=== PATIENT | male | born 1950 | race Caucasian/White ===

== ENCOUNTER 2017-03-06 07:50 | Day surgery (SDC) | payer MEDICARE ==
[~2017-03-06 07:50] MED LIST: ALPRAZolam 0.25 MG TAB PO PRN; ALPRAZolam 0.5 MG TAB PO PRN; ASPIRIN 325 MG TAB PO STA; NITROGLYCERIN SL TABS 0.4 MG TAB SUBLINGUAL PRN; SODIUM CHLORIDE 0.9% 1,000 ML in EMPTY BAG 1 BAG IV ONE
[2017-03-06 08:15] LABS: Glucose,Whole Blood 116 mg/dL (75-99)
[2017-03-06] MEDS ORDERED: MIDAZOLAM 2 MG/2 ML VIAL ONE (11:41)
[2017-03-06] MEDS ORDERED: LIDOCAINE 2% INJ 20 MG/ML (20 ML MDV) ONE (11:41)
[2017-03-06 11:57] LABS: Glucose,Whole Blood 106 mg/dL (75-99)
[2017-03-06] MEDS ORDERED: LIDOCAINE 2% INJ 20 MG/ML SQ ONE (15:22)
[2017-03-06] MEDS ORDERED: MIDAZOLAM 2 MG/2 ML VIAL IV ONE ×2 (15:22→15:30)
[2017-03-06] MEDS ORDERED: BIVALIRUDIN BOLUS 250 MG/50 ML IV ONE (15:26)
[2017-03-06] MEDS ORDERED: BIVALIRUDIN 250 MG in SODIUM CHLORIDE 0.9% 50 ML IV ONE (15:28)
[2017-03-06] MEDS ORDERED: HYDROmorphone 2 MG/ML 1 ML SYRINGE IV ONE (15:37)
[2017-03-06] MEDS ORDERED: CLOPIDOGREL 75 MG TAB PO ONE (15:44)
[2017-03-06] MEDS ORDERED: ADENOSINE 90 MG in SODIUM CHLORIDE 0.9% 60 ML IVP ONE (15:55)
[2017-03-06] MEDS ORDERED: IOHEXOL 350 MG/ML 125ML BOTTLE INJ ONE (16:01)
[2017-03-06] MEDS ORDERED: ZOLPIDEM 5 MG TAB PO PRN (16:02)
[2017-03-06] MEDS ORDERED: NITROGLYCERIN SL TABS 0.4 MG TAB SUBLINGUAL PRN (16:02)
[2017-03-06] MEDS ORDERED: MAG HYDROX/AL HYDROX/SIMETH 30 ML CUP PO PRN (16:02)
[2017-03-06] MEDS ORDERED: RX INFO: IV CONTRAST WAS GIVEN 1 EACH MISC MISCELLANE PRN (16:02)
[2017-03-06] MEDS ORDERED: ATROPINE SULFATE 0.1 MG/ML 10ML SYRINGE IV PRN (16:02)
[2017-03-06] MEDS ORDERED: SODIUM CHLORIDE 0.9% 1,000 ML IV SCH (16:15)
[2017-03-06 16:45] LABS: Glucose,Whole Blood 133 mg/dL (75-99)
[2017-03-06] MEDS ORDERED: INFLUENZA VACCINE (6 MOS+) 60 MCG/0.5 ML SYRINGE IM ONE (18:33)
[2017-03-06] MEDS ORDERED: PNEUMOCOCCAL VACC-PNEUMOVAX 23 25 MCG/0.5 ML VIAL IM ONE (18:35)
--- NOTE | 2017-03-06 21:14 | PTCA ---
PERCUTANEOUSTRANS CORORONARY ANGIOGRAPHY DATE OF SERVICE: March 06, 2017 PERFORMING PHYSICIAN: Phoenix Araujo MD, bench press operator. PROCEDURE PERFORMED: 1. Successful stenting of the distal left main/proximal left circumflex using 2.5 x 16 mm Promus Premier drug-eluting stent with good angiographic results. 2. Fractional flow reserve, FFR, of the SVG graft onto diagonal. INDICATION: This is a pleasant 66-year-old gentleman who is known to have coronary artery disease who underwent stenting of the RCA few weeks ago and was found to have severe disease involving an ostial/proximal unprotected left circumflex as well as intermediate disease involving the SVG to the diag was brought today to undergo an intervention on the left circumflex and FFR of the diagonal and RCA of the SVG to diagonal. APPROACH: Right common femoral artery. COMPLICATION: None. LEVEL OF SEDATION: Moderate with sedation length of 38 minutes. . PROCEDURE: After obtaining informed consent, the patient was brought to cardiac senior laboratory technician. The right common femoral artery was cannulated using micropuncture technique: A micropuncture wire passed easily then I placed a 6-Comoran sheath in the right common femoral artery. Subsequently I did engage the left circumflex using JL4 guiding catheter. I did wire the left circumflex using a whisper wire. I did after that balloon angioplasty using 225 x 12 mm balloon then I deployed 2.5 x 16 mm Promus Premier drug-eluting stent where the stent was positioned under fluoroscopy guidance and deployed under 12 atmospheres for 20 seconds with the following angiogram showed good angiographic results. Regarding the FFR of the SVG to diagonal, I had after zeroing the Doppler wire and equalizing between the Doppler wire and the guiding catheter which was JR4 guiding catheter with an FFR per IV adenosine infusion. The FFR came in to be 0.94, which is nonischemic. CONCLUSION: 1. Successful stenting of the distal left main/proximal left circumflex using 2.5 x 16 mm Promus Premier drug-eluting stent with good angiographic results. 2. Fractional flow reserve of the SVG to diagonal, which was nonischemic. POSTPROCEDURE MANAGEMENT: 1. Maximize medical treatment. 2. Follow up with the patient. MMODL / IJN: [id number] /
[2017-03-06 21:16] LABS: Glucose,Whole Blood 369 mg/dL (75-99)
[2017-03-06] MEDS ORDERED: INSULIN LISPRO (humaLOG) 300 UNIT/3 ML VIAL SQ PRN (21:34)
[2017-03-06] MEDS ORDERED: METOPROLOL TARTRATE 50 MG TAB PO SCH (21:45)
[2017-03-06] MEDS: INSULIN GLARGINE 100 UNIT/ML 10 ML VIAL SQ SCH (23:04)
[2017-03-06] MEDS: INSULIN LISPRO (humaLOG) 300 UNIT/3 ML VIAL SQ SCH (23:05)
[2017-03-07 05:48] VITALS: RESP 18
[2017-03-07 06:00] LABS: Glucose,Whole Blood 269 mg/dL (75-99)
[2017-03-07 06:27] LABS: Basophils % (A) 0 %; CH 31.9; Eosinophils # (A) 0.2 k/uL (0-0.7); Eosinophils % (A) 3 %; HCT 44.3 % (39.0-53.0); HDW 2.17; HGB 14.3 gm/dL (13.0-17.5); Luc # (Auto) 0.14; Luc % (Auto) 2; Lymphocytes # (A) 1.1 k/uL (1.0-4.8); Lymphocytes % (A) 19 %; MCH 31.2 pg (25.0-35.0); MCHC 32.2 g/dL (31.0-37.0); MCV 96.8 fL (80.0-100.0); Mean Platelet Volume 7.4; Monocytes # (A) 0.5 k/uL (0-1.0); Monocytes % (A) 7 %; Neutrophils # (A) 4.2 k/uL (1.3-7.7); Neutrophils % (A) 68 %; RBC 4.57 m/uL (4.30-5.90); RDW 13.3 % (11.5-15.5); WBC 6.1 k/uL (3.8-10.6); WBC (Perox) 6.06
[2017-03-07 06:57] LABS: Anion Gap 6 mmol/L; Blood Urea Nitrogen 16 mg/dL (9-20); Calcium 8.4 mg/dL (8.4-10.2); Carbon Dioxide 23 mmol/L (22-30); Chloride 105 mmol/L (98-107); Glucose 287 mg/dL (74-99); Non-African American GFR(MDRD) >60 (>60 ml/min/1.73 sqM); Sodium 134 mmol/L (137-145)
[2017-03-07] MEDS: INSULIN LISPRO (humaLOG) 300 UNIT/3 ML VIAL SQ SCH (07:05)
[2017-03-07] MEDS: INSULIN GLARGINE 100 UNIT/ML 10 ML VIAL SQ SCH (08:33)
[2017-03-07] MEDS ORDERED: CLOPIDOGREL 75 MG TAB PO SCH (09:00)
[2017-03-07] MEDS ORDERED: ASPIRIN 325 MG TAB PO SCH (09:00)
[2017-03-07] MEDS ORDERED: ISOSORBIDE MONONITRATE ER 60 MG TAB.ER.24H PO SCH (09:00)
[2017-03-07 09:22] VITALS: BP 155/72; PULSE 70; TEMP 97.7
[2017-03-07 09:55] VITALS: BMI 26.9
--- NOTE | 2017-03-07 11:34 | P.PN ---
Subjective Progress Note Date: 03/07/17 Principal diagnosis: Discharge note This is a pleasant 66-year-old gentleman with known history of coronary artery disease with recent stenting of the RCA, he was admitted to the hospital to undergo angioplasty of the ostial and proximal unprotected left circumflex. Patient did undergo successful stenting of the distal left main/ proximal left circumflex, he also underwent fractional flow reserve of the SVG to the diagonal which was nonischemic. Patient was seen and examined this morning, denied any chest pain or difficulty in breathing. He's been up ambulating without any difficulty. Hemodynamically stable. CBC normal, potassium 5.0, BUN 16, creatinine 0.1. Objective - Vital Signs Vital signs: Vital Signs Temp 97.7 F 03/07/17 08:00 Pulse 70 03/07/17 08:00 Resp 18 03/07/17 08:00 BP 155/72 03/07/17 08:00 Pulse Ox 92 L 03/07/17 08:00 Intake & Output 03/06/17 03/07/17 03/07/17 18:59 06:59 18:59 Intake Total 511 1200 480 Output Total 400 975 Balance 111 225 480 Weight 97.9 kg 95.2 kg 95.2 kg Intake: IV 511 Intake, IV Titration 1200 Amount Sodium Chloride 0.9% 1, 1200 000 ml @ 100 mls/hr IV . Q10H [facility] Rx#:[id number] Oral 480 Output: Urine 400 975 Other: Voiding Method Urinal # Voids 1 - Exam PHYSICAL EXAMINATION: HEENT: [Head is atraumatic, normocephalic. Pupils equal, round. Neck is supple. There is no elevated jugular venous pressure.] HEART EXAMINATION: [Heart S1, S2 normal. No murmur or gallop heard.] CHEST EXAMINATION:[ Lungs are clear to auscultation and precussion. No chest wall tenderness is noted on palpation or with deep breathing.] ABDOMEN: [ Soft, nontender. Bowel sounds are heard. No organomegaly noted]. Right groin soft, no evidence of any hematoma. EXTREMITIES:[ 2+ peripheral pulses with no evidence of peripheral edema and no calf tenderness noted]. NEUROLOGIC [patient is awake, alert and oriented -3.] . - Labs CBC & Chem 7: 03/07/17 05:37 03/07/17 05:37 Labs: Abnormal Lab Results - Last 24 Hours (Table) 03/06/17 03/06/17 03/06/17 Range/Units 11:45 16:42 21:14 Sodium (137-145) mmol/L Glucose (74-99) mg/dL POC Glucose (mg/dL) 106 H 133 H 369 H (75-99) mg/dL 03/07/17 03/07/17 Range/Units 05:37 05:56 Sodium 134 L (137-145) mmol/L Glucose 287 H (74-99) mg/dL POC Glucose (mg/dL) 269 H (75-99) mg/dL Assessment and Plan Assessment: Assessment and plan #1 status post angioplasty with stenting of the distal left main and proximal circumflex. #2 fractional flow reserve of the SVG to the diagonal which was nonischemic #3 recent RCA stenting #4 hyperlipidemia # 5 diabetes #6 hypertension Plan Patient may be able to be discharged home today. We'll make him a follow-up appointment in the office with Dr. Romero post discharge. He has been educated regarding his medication, diet, activity, and care of groin. DNP note has been reviewed, I agree with a documented findings and plan of care. Patient was seen and examined.
[2017-03-07] MEDS ORDERED: LISINOPRIL 20 MG TAB PO SCH (21:00)
[2017-03-07] MEDS ORDERED: ATORVASTATIN 40 MG TAB PO SCH (21:00)
== END 2017-03-07 09:57 | disposition home or self-care (01) ==
LOC: CATHCVL 07:50 → 6SEL 16:05 → CATHCVL 03-07 09:57
PROVIDERS: ATTEND Internal Medicine Interventional Cardiology
DX: I25.10 Atherosclerotic heart disease of native coronary artery without angina pectoris (principal); R94.31 Abnormal electrocardiogram [ECG] [EKG]; E78.00 Pure hypercholesterolemia, unspecified; I10 Essential (primary) hypertension; R06.00 Dyspnea, unspecified; E11.9 Type 2 diabetes mellitus without complications; Z95.1 Presence of aortocoronary bypass graft; Z95.5 Presence of coronary angioplasty implant and graft; Z82.49 Family history of ischemic heart disease and other diseases of the circulatory system; Z79.02 Long term (current) use of antithrombotics/antiplatelets; Z79.82 Long term (current) use of aspirin; Z79.4 Long term (current) use of insulin; Z79.899 Other long term (current) drug therapy; Z23 Encounter for immunization
CPT/HCPCS: 93571; 80048; 85025; 90732; 90686; C9600; C1769 ×3; C1887 ×2; C1725; C1894; C1874; G0008; G0009; J2001; J2250; J1170; J0583; J0153; Q9967

== ENCOUNTER → 2017-05-16 | Outpatient (CLI) | payer MEDICARE ==
--- NOTE | 2017-05-17 08:51 | CT ---
EXAMINATION TYPE: CT shoulder LT wo con DATE OF EXAM: 05/16/2017 COMPARISON: NONE HISTORY: Slip and fall x3 days ago. Left shoulder pain. CT DLP: 703.[address] of the left shoulder with reconstruction imaging. TECHNIQUE: Unenhanced CT of the left shoulder was performed with bone and soft tissue window settings submitted in the axial coronal and sagittal planes. At a separate workstation 3-D TR imaging was ob tained. FINDINGS: Fracture noted to involve the left humeral neck with comminuted component extending into th e greater tuberosity and lesser tuberosity. 4 mm fracture displacement at the greater tuberosity comp onent. There is no evidence for dislocation. Small hemarthrosis is noted. No additional fracture seen . MRI is much more sensitive and specific to rotator cuff pathology. No soft tissue masses appreciat ed. Visualized portions of the lung demonstrate apical scarring. Large fixed hiatal hernia noted. IMPRESSION: 1. Comminuted proximal left humeral fracture.
== END | disposition home or self-care (01) ==
LOC: RADCTMAIN 19:27
PROVIDERS: ATTEND Orthopaedic Surgery
DX: S42.202A Unspecified fracture of upper end of left humerus, initial encounter for closed fracture (principal)

== ENCOUNTER 2017-06-02 09:21 | Emergency (ER) | payer MEDICARE ==
--- NOTE | 2017-06-02 10:07 | ED ---
General Adult HPI - General Chief complaint: Extremity Injury, Lower Stated complaint: Swollen feet Time Seen by Provider: 06/02/17 09:58 Source: patient, RN notes reviewed Mode of arrival: ambulatory Limitations: no limitations - History of Present Illness Initial comments: Patient is a 66-year-old male who presents emergency room today with a chief complaint of swelling to his feet bilaterally. He does admit to use fracture that occurred earlier in the month after a trip and fall. States she's been following up with orthopedics. He states that his noticed this past week she's had some swelling down into his left foot also some mild swelling to the right foot as well. He states that he was told by the family doctor in the past that he had a loose had some slight swelling to the ankle. States he was concerned because of his history of hypertension and diabetes. He does have small abrasion over top left foot that occurred with this fall he broke his humerus. He states it's healing well ears no changes. He denies any pain. He denies any shortness breath or difficulty breathing. Denies any other complaints or symptoms. Patient denies any fever, chills, chest pain, back pain, numbness or tingling. - Related Data Home Medications Medication Instructions Recorded Confirmed Aspirin 325 mg PO DAILY 02/08/17 03/06/17 Atorvastatin [Lipitor] 40 mg PO HS 02/08/17 03/06/17 Enalapril [Vasotec] 10 mg PO HS 02/08/17 03/06/17 Insulin Aspart [NovoLOG Flexpen] See Protocol SQ AC-LUNCH PRN 02/08/17 03/06/17 Insulin Glargine [Lantus] 25 unit SQ BID 02/08/17 03/06/17 Isosorbide Mononitrate ER [Imdur] 60 mg PO QAM 02/08/17 03/06/17 Metoprolol Tartrate [Lopressor] 50 mg PO HS 02/08/17 03/06/17 Insulin Aspart [NovoLOG 15 unit SQ BID-W/MEALS 03/01/17 03/06/17 (formulary)] Previous Rx's Medication Instructions Recorded Clopidogrel [Plavix] 75 mg PO DAILY #90 tab 02/10/17 Nitroglycerin Sl Tabs [Nitrostat] 0.4 mg SUBLINGUAL Q5M PRN #25 tab 03/07/17 Allergies Allergy/AdvReac Type Severity Reaction Status Date / Time No Known Allergies Allergy Verified 06/02/17 09:33 Review of Systems ROS Statement: Those systems with pertinent positive or pertinent negative responses have been documented in the HPI. ROS Other: All systems not noted in ROS Statement are negative. Past Medical History Past Medical History: Coronary Artery Disease (CAD), Diabetes Mellitus, Hyperlipidemia, Hypertension History of Any Multi-Drug Resistant Organisms: None Reported Past Surgical History: Coronary Bypass/CABG, Heart Catheterization, Heart Catheterization With Stent Additional Past Surgical History / Comment(s): cabg x4 Past Anesthesia/Blood Transfusion Reactions: No Reported Reaction Date of Last Stent Placement:: 03/06/17 Past Psychological History: No Psychological Hx Reported Smoking Status: Never smoker Past Alcohol Use History: Rare Past Drug Use History: None Reported - Past Family History Mother Family Medical History: No Reported History General Exam - General Exam Comments Initial Comments: General: The patient is awake and alert, in no distress, and does not appear acutely ill. Neck: The neck is supple, there is no tenderness or JVD. Cardiovascular: There is a regular rate and rhythm. No murmur, rub or gallop is appreciated. Respiratory: Lungs are clear to auscultation, respirations are non-labored, breath sounds are equal. No wheezes, stridor, rales, or rhonchi. Musculoskeletal: Patient in a shoulder sling on the left arm. Pulses equal bilaterally both upper and lower extremities. Sensations are intact. Mild pitting down into the left foot. Neurological: A&O x 3. CN II-XII intact, There are no obvious motor or sensory deficits. Coordination appears grossly intact. Speech is normal. Skin: Patient does have small abrasion over the top left foot. No sign of infection. No lymphangitic streaking. Psychiatric: Normal mood and affect. Limitations: no limitations Course Vital Signs 06/02/17 06/02/17 09:29 10:17 Temperature 97.9 F Pulse Rate 68 80 Respiratory 16 18 Rate Blood Pressure 188/86 143/76 O2 Sat by Pulse 97 98 Oximetry Medical Decision Making - Medical Decision Making Patient's labs been reviewed. Patient presenting for bilateral lower leg edema. Patient swelling to the lower extremity's. patient at this time advised to elevate his feet above the heart. advised follow family doctor over the next 2 days. advised to return here to the emergency room for any symptoms increase worsen or for any other concerns. - Lab Data Result diagrams: 06/02/17 10:13 06/02/17 10:13 Lab Results 06/02/17 06/02/17 06/02/17 Range/Units 10:13 10:13 10:13 WBC 5.1 (3.8-10.6) k/uL RBC 4.28 L (4.30-5.90) m/uL Hgb 13.8 (13.0-17.5) gm/dL Hct 42.4 (39.0-53.0) % MCV 99.0 (80.0-100.0) fL MCH 32.3 (25.0-35.0) pg MCHC 32.6 (31.0-37.0) g/dL RDW 14.4 (11.5-15.5) % Plt Count 242 (150-450) k/uL Neutrophils % 59 % Lymphocytes % 26 % Monocytes % 7 % Eosinophils % 5 % Basophils % 0 % Neutrophils # 3.0 (1.3-7.7) k/uL Lymphocytes # 1.3 (1.0-4.8) k/uL Monocytes # 0.3 (0-1.0) k/uL Eosinophils # 0.3 (0-0.7) k/uL Basophils # 0.0 (0-0.2) k/uL Sodium 142 (137-145) mmol/L Potassium 4.1 (3.5-5.1) mmol/L Chloride 105 (98-107) mmol/L Carbon Dioxide 27 (22-30) mmol/L Anion Gap 10 mmol/L BUN 18 (9-20) mg/dL Creatinine 0.70 (0.66-1.25) mg/dL Est GFR (MDRD) Af Amer >60 (>60 ml/min/1.73 sqM) Est GFR (MDRD) Non-Af >60 (>60 ml/min/1.73 sqM) Glucose 59 L (74-99) mg/dL Calcium 9.3 (8.4-10.2) mg/dL NT-Pro-B Natriuret Pep 218 pg/mL Disposition Clinical Impression: Leg edema Disposition: HOME SELF-CARE Condition: Good Instructions: Leg Edema (ED) Additional Instructions: Please elevate legs as discussed. Please follow up with the family doctor this coming week. Please return to emergency room if any symptoms increase worsen. Referrals: Eva Awan MD [Primary Care Provider] - 1-2 days Time of Disposition: 11:00
[2017-06-02 10:18] VITALS: RESP 18
[2017-06-02 10:20] LABS: Basophils % (A) 0 %; Eosinophils # (A) 0.3 k/uL (0-0.7); Eosinophils % (A) 5 %; HCT 42.4 % (39.0-53.0); HGB 13.8 gm/dL (13.0-17.5); Lymphocytes # (A) 1.3 k/uL (1.0-4.8); Lymphocytes % (A) 26 %; MCH 32.3 pg (25.0-35.0); MCHC 32.6 g/dL (31.0-37.0); Mean Platelet Volume 7.2; Monocytes # (A) 0.3 k/uL (0-1.0); Monocytes % (A) 7 %; Neutrophils % (A) 59 %; Platelet Count 242 k/uL (150-450); RBC 4.28 m/uL (4.30-5.90); RDW 14.4 % (11.5-15.5); WBC 5.1 k/uL (3.8-10.6)
[2017-06-02 10:30] LABS: Anion Gap 10 mmol/L; Blood Urea Nitrogen 18 mg/dL (9-20); Calcium 9.3 mg/dL (8.4-10.2); Carbon Dioxide 27 mmol/L (22-30); Chloride 105 mmol/L (98-107); Glucose 59 mg/dL (74-99); Potassium 4.1 mmol/L (3.5-5.1); Sodium 142 mmol/L (137-145)
[2017-06-02 11:06] VITALS: BP 153/73; PULSE 72; TEMP 98.1
== END 2017-06-02 11:04 | disposition home or self-care (01) ==
LOC: EC 09:21
DX: R60.0 Localized edema (principal); S90.812D Abrasion, left foot, subsequent encounter; E11.9 Type 2 diabetes mellitus without complications; E78.5 Hyperlipidemia, unspecified; I10 Essential (primary) hypertension; I25.10 Atherosclerotic heart disease of native coronary artery without angina pectoris; Z95.1 Presence of aortocoronary bypass graft; Z95.5 Presence of coronary angioplasty implant and graft; Z79.82 Long term (current) use of aspirin; Z79.4 Long term (current) use of insulin; Z79.899 Other long term (current) drug therapy; W19.XXXD Unspecified fall, subsequent encounter
CPT/HCPCS: 36415; 80048; 83880; 85025; 99283

== ENCOUNTER → 2018-01-18 | Outpatient (CLI) | payer MEDICARE ==
--- NOTE | 2018-01-18 12:34 | MR ---
EXAMINATION TYPE: MR shoulder LT wo con DATE OF EXAM: 01/18/2018 COMPARISON: Outside x-ray dated 01/08/2018, CT scan 05/16/2017 HISTORY: Left shoulder pain TECHNIQUE: Multiplanar, multisequence imaging of the left shoulder is performed without contrast. FINDINGS: Rotator Cuff: There is a near complete tear of the supraspinatus tendon with minimal fibers remaining . Infraspinatus tendon demonstrates a area of abnormal signal measuring 5 mm at its insertion likely related to tendinopathy or tiny intrasubstance tear. No retraction. Subscapularis tendon intact. Flui d in the subacromial bursa noted. Acromioclavicular Joint: There is hypertrophic change and narrowing of the AC joint. Does appear to b e a degree of atrophy with regard to the supraspinatus muscle. Glenohumeral Joint: No sizable joint effusion. There appears to be a benign-appearing cystic lesion i nvolving the acetabulum. Narrowing of the joint space is noted and there is a chronic appearing defor mity of the humeral head compatible with previous fracture. Labrum: Findings are suspicious for a SLAP tear. Biceps Tendon: The long head of biceps is in normal location within bicipital groove. Small amount of fluid surrounding the biceps tendon suggestive of tendinosis Bone marrow signal: Cystic appearing lesion in the acetabulum noted measuring 1 cm also seen by previ ous CT scan may represent bone cyst or geode. IMPRESSION: 1. Near complete tear of the supraspinatus tendon with minimal fibers remaining. There is a degree of atrophy of the supraspinatus muscle. 2. Tendinopathy insertion of the infraspinatus tendon. 3. SLAP tear. 4. mild bicipital tendinosis. 5. Findings compatible with remote trauma to the humeral head and previous fracture.
== END | disposition home or self-care (01) ==
LOC: RADMRIMAIN 10:13
PROVIDERS: ATTEND Orthopaedic Surgery
DX: M75.122 Complete rotator cuff tear or rupture of left shoulder, not specified as traumatic (principal); M62.512 Muscle wasting and atrophy, not elsewhere classified, left shoulder; S43.492A Other sprain of left shoulder joint, initial encounter; M67.814 Other specified disorders of tendon, left shoulder

== ENCOUNTER 2018-02-28 05:35 | Day surgery (SDC) | payer MEDICARE ==
[2018-02-26 08:57] VITALS: BMI 27.8
--- NOTE | 2018-02-27 16:11 | HP ---
HISTORY AND PHYSICAL REASON FOR ADMISSION: Surgery 02/28/2018 Blaine Nelson is a 67-year-old patient seen with progressive left shoulder pain. We discussed treatment options. He elected to proceed with left shoulder arthroscopy. Consent regarding the procedure was obtained, clearance was provided by Dr. Awan. Cardiac clearance by Dr. Araujo. PAST MEDICAL HISTORY: Hyperlipidemia, hypertension, insulin-dependent diabetes. PAST SURGICAL HISTORY: Coronary artery bypass surgery, catheterization with stent placement. MEDICATIONS: Atorvastatin, Enalapril, isosorbide, Lantus, metoprolol, NovoLog. ALLERGIES: None. SOCIAL HISTORY: Patient denies current tobacco use. PHYSICAL EXAMINATION: Evaluation of the left shoulder: Flexion is 130 degrees, abduction is 100 degrees, external rotation is 10 degrees with pain and weakness. Tenderness along the anterolateral acromion rotator cuff insertion site. Impingement positive at 80 degrees. Positive drop-arm sign. Distal neurovascular exam intact. RADIOGRAPHS: Left shoulder revealed a previous humeral head fracture. MRI of left shoulder revealed rotator cuff tear with some muscular atrophy, biceps tendinitis and labral tear. IMPRESSION: Left shoulder impingement with rotator cuff tear and labral tear. PLAN: Left shoulder arthroscopy with subacromial decompression, possible arthroscopic rotator cuff repair, probable biceps tenotomy and debridement. Surgery is scheduled for 02/28/2018. MMODL / IJN: [id number] /
[~2018-02-28 05:35] MED LIST changes: -ALPRAZolam 0.25 MG TAB PO PRN; -ALPRAZolam 0.5 MG TAB PO PRN; -ASPIRIN 325 MG TAB PO STA; +DEXAMETHASONE SOD PHOSPHATE 10 MG/ML 1 ML VIAL IV ONE; +LACTATED RINGERS 1,000 ML IV SCH; +LIDOCAINE 1% 20 ML VIAL (10MG/ML) FOR IV START INTRADERMA PRN; +MIDAZOLAM 2 MG/2 ML VIAL IV PRN; -NITROGLYCERIN SL TABS 0.4 MG TAB SUBLINGUAL PRN; +ONDANSETRON 4 MG/2 ML VIAL IVP ONE; -SODIUM CHLORIDE 0.9% 1,000 ML in EMPTY BAG 1 BAG IV ONE; +ceFAZolin IN SWFI 2 GM/20 ML SYRINGE IVP ONE; +fentaNYL (PF) 50 MCG/ML 2 ML AMP IV PRN
[2018-02-28 06:47] LABS: Glucose,Whole Blood 206 mg/dL (75-99)
[2018-02-28] MEDS ORDERED: INSULIN ASPART 100 UNIT/ML 1 ML 10 ML VIAL SQ ONE (07:20)
[2018-02-28] MEDS ORDERED: fentaNYL (PF) 50 MCG/ML 2 ML AMP ONE (07:28)
[2018-02-28] MEDS ORDERED: LIDOCAINE 1% INJ 10MG/ML (20 ML MDV) ONE (07:28)
[2018-02-28] MEDS ORDERED: KETOROLAC 30 MG/ML 1 ML VIAL ONE (07:28)
[2018-02-28] MEDS ORDERED: SUCCINYLCHOLINE CHLORIDE VIAL 200 MG/10 ML VIAL IV ONE (07:28)
[2018-02-28] MEDS ORDERED: MIDAZOLAM 2 MG/2 ML VIAL ONE (07:28)
[2018-02-28] MEDS ORDERED: PROPOFOL 10 MG/ML 20 ML VIAL IV ONE (07:28)
[2018-02-28] MEDS ORDERED: ROPIVACAINE 5 MG/ML 30 ML VIAL ONE (07:28)
--- NOTE | 2018-02-28 08:22 | P.ONQ ---
Anesthesiology Proc Note - PNB - Peripheral Nerve Block Performed Left Interscalene Single Time Out Performed: Yes Procedure Start Time: 06:55 Indication: Acute Post-Operative Pain, Analgesia Specifically requested for management of pain by DrSy: Christiano Hodges Sedation Type: Sedate with meaningful contact maintained Preparation: Sterile Prep Position: Supine Catheter: None Needle Types: Other (see comment) (Pajunk) Needle Size: 50mm (2") Needle Gauge: 21 Technique: Ultrasound Injectate: 0.5% Ropivacaine (see comment for volume) (30 cc) Blood Aspirated: No Pain Paresthesia on Injection Noted: No Resistance on Injection: Normal Events: Uneventful and Well Tolerated
--- NOTE | 2018-02-28 09:43 | P.OP ---
Date of Procedure: 02/28/18 Preoperative Diagnosis: Left shoulder impingement Postoperative Diagnosis: 1. Left shoulder rotator cuff tear 2. Left shoulder impingement 3. Left shoulder acromioclavicular joint osteoarthritis 4. Left shoulder partial long head biceps tendon tear 5. Left shoulder labral tear Procedure(s) Performed: 1. Left shoulder arthroscopic rotator cuff repair 2. Left shoulder arthroscopic subacromial decompression 3. Left shoulder arthroscopic Constantin procedure 4. Left shoulder arthroscopic biceps tenotomy 5. Left shoulder arthroscopic debridement labral tear Implants: 34 .75 Arthrex swivel lock anchors 15.5 Arthrex swivel lock anchor Anesthesia: GETA, regional (Interscalene block) Surgeon: Christiano Hodges Database Management Specialist #1: Gigi Barker Estimated Blood Loss (ml): 10 Pathology: none sent Condition: stable Disposition: PACU Indications for Procedure: 67-year-old patient seen with progressive left shoulder pain. After treatment options were discussed, he elected to proceed with arthroscopy. Operative Findings: See description of procedure Description of Procedure: Patient underwent an interscalene block by department of anesthesia. The patient was then taken to the operative suite. The patient underwent a general anesthetic by the department of anesthesia. The patient was placed into a lateral position and secured. There was appropriate padding of the bony prominence. Left shoulder was then prepped and draped in normal sterile orthopedic fashion. We placed the extremity in 10 pounds of longitudinal traction. A posterior incision was now made for a posterior working portal site. The trocar and cannula were inserted into the glenohumeral joint. Arthroscopy was initiated. Spinal needle was now inserted anteriorly, to ascertain the anterior working portal site. An incision was now made in that area, a trocar was inserted followed by a probe. There was superficial tearing of the superior labrum. There was rotator cuff tear visualized from glenohumeral side. There was hyperemia and partial tearing long head biceps tendon. There were grade 1 chondromalacia changes of the glenohumeral joint with no osteochondral tears present. I performed an arthroscopic biceps tenotomy. I debrided the superficial labral tear down to stable tissue. The residual labrum was stable. Utilizing the posterior working portal site, the trocar and cannula were inserted into the subacromial space. Arthroscopy initiated. I made an incision 2 fingerbreadths lateral to the acromion. I introduced my trocar followed by my ArthroCare ablator. I now began ablating thick subacromial bursal tissue, which exposed the undersurface of the anterior acromion. There was diminished subacromial space. There was a very prominent anterior acromion. A motorized bur was introduced and a subacromial decompression was performed. I also excised some osteophytes off the inferior aspect of the distal clavicle. The AC joint was visualized and noted to be fairly arthritic. The motorized bur was introduced in the anterior portal site and a Constantin procedure was performed without difficulty, decompressing the AC joint nicely. I turned my attention to the rotator cuff. There was a 2 cm rotator cuff tear. I debrided the margins getting down to stable tendon tissue. The defect of the tendon now measured 2.5 cm. It was freely mobile over the footprint. I introduced my motorized bur and abraded the footprint area, getting some petechial bleeding. I now made an accessory portal site off the lateral aspect of the acromion. I punched 2 holes medial for medial row fixation with the assistance of Bo FARRELL carefully tapping the punch with a mallet as I held the punch and the camera. I now introduced both anchors into the pre-punched holes and Bo FARRELL tapped them with the mallet as I held anchors and the camera. Bo FARRELL now screwed the anchors in place a while I held the anchor guide and camera. All 8 limbs of suture were now passed through good bites of rotator cuff tendon. I now punched 2 holes for lateral row fixation again I held the punch and camera while Bo FARRELL used a mallet to tap in the punch. We now passed sutures through both anchors and individually I introduced the anchors into the pre-punch holes I held the anchor guide in position with one hand holding the camera with the other hand while Bo FARRELL tensioned the sutures and screwed in the anchors one at a time. All residual suture limbs were now clipped. We had good compression of the tendon along the entire footprint. I injected 1 mL Renue intra-articular. Instruments now removed from the portal sites. All portal sites were approximated with nylon suture. Sterile dressings were applied followed by a shoulder immobilizer. Gigi FARRELL assisted in this complex case. The patient was awakened, transferred to a bed, and taken to recovery in stable condition.
[2018-02-28 09:46] VITALS: TEMP 97.6
[2018-02-28 09:50] VITALS: RESP 16
[2018-02-28 09:54] LABS: Glucose,Whole Blood 192 mg/dL (75-99)
[2018-02-28] MEDS ORDERED: LACTATED RINGERS 1,000 ML IV ONE (10:05)
[2018-02-28 11:07] VITALS: BP 122/62; PULSE 60
== END 2018-02-28 11:48 | disposition home or self-care (01) ==
LOC: OR 05:35
PROVIDERS: ATTEND Orthopaedic Surgery
DX: M75.102 Unspecified rotator cuff tear or rupture of left shoulder, not specified as traumatic (principal); M75.42 Impingement syndrome of left shoulder; M19.012 Primary osteoarthritis, left shoulder; S46.112A Strain of muscle, fascia and tendon of long head of biceps, left arm, initial encounter; S43.492A Other sprain of left shoulder joint, initial encounter; X58.XXXA Exposure to other specified factors, initial encounter; M94.212 Chondromalacia, left shoulder; M25.712 Osteophyte, left shoulder; I25.10 Atherosclerotic heart disease of native coronary artery without angina pectoris; I10 Essential (primary) hypertension; E78.5 Hyperlipidemia, unspecified; E78.00 Pure hypercholesterolemia, unspecified; E11.9 Type 2 diabetes mellitus without complications; Z95.1 Presence of aortocoronary bypass graft; Z95.5 Presence of coronary angioplasty implant and graft; Z79.82 Long term (current) use of aspirin; Z79.4 Long term (current) use of insulin; Z79.899 Other long term (current) drug therapy; Z82.49 Family history of ischemic heart disease and other diseases of the circulatory system
CPT/HCPCS: 64415; 29824; 29827; 29826; C1713 ×4; C1765; J2250; J0330; J1100; J2405; J2001; J3010; J1885; J2795; J2704; J0690

== ENCOUNTER → 2018-11-06 | Outpatient (CLI) | payer MEDICARE | END | disposition home or self-care (01) | LOC: LABPAT 09:34 | PROVIDERS: ATTEND Internal Medicine Interventional Cardiology | DX: Z53.9 Procedure and treatment not carried out, unspecified reason (principal) ==

== ENCOUNTER 2018-11-15 07:27 | Day surgery (SDC) | payer MEDICARE ==
[2018-11-13 09:46] VITALS: BMI 28.0
[~2018-11-15 07:27] MED LIST changes: +ALPRAZolam 0.25 MG TAB PO PRN; +ALPRAZolam 0.5 MG TAB PO PRN; +ASPIRIN 325 MG TAB PO STA; +ATORVASTATIN 80 MG TAB PO STA; -DEXAMETHASONE SOD PHOSPHATE 10 MG/ML 1 ML VIAL IV ONE; -LACTATED RINGERS 1,000 ML IV SCH; -LIDOCAINE 1% 20 ML VIAL (10MG/ML) FOR IV START INTRADERMA PRN; -MIDAZOLAM 2 MG/2 ML VIAL IV PRN; +NITROGLYCERIN SL TABS 0.4 MG TAB SUBLINGUAL PRN; -ONDANSETRON 4 MG/2 ML VIAL IVP ONE; +SODIUM CHLORIDE 0.9% 1,000 ML in EMPTY BAG 1 BAG IV ONE; -ceFAZolin IN SWFI 2 GM/20 ML SYRINGE IVP ONE; -fentaNYL (PF) 50 MCG/ML 2 ML AMP IV PRN
[2018-11-15 07:54] LABS: Glucose,Whole Blood 186 mg/dL (75-99)
[2018-11-15] MEDS ORDERED: LIDOCAINE 1% INJ 10MG/ML (20 ML MDV) ONE (08:37)
[2018-11-15] MEDS ORDERED: MIDAZOLAM (PF) 2 MG/2 ML VIAL IVP ONE ×2 (08:45→08:55)
[2018-11-15] MEDS ORDERED: LIDOCAINE 1% INJ 10MG/ML (20 ML MDV) SQ ONE (08:48)
[2018-11-15] MEDS ORDERED: CLOPIDOGREL 75 MG TAB ONE (09:02)
[2018-11-15] MEDS ORDERED: CLOPIDOGREL 75 MG TAB PO ONE (09:06)
[2018-11-15] MEDS ORDERED: BIVALIRUDIN BOLUS 250 MG/50 ML IV ONE (09:06)
[2018-11-15] MEDS ORDERED: BIVALIRUDIN 250 MG in SODIUM CHLORIDE 0.9% 50 ML IV ONE (09:08)
[2018-11-15] MEDS ORDERED: HYDROmorphone 1 MG/ML 1 ML SYRINGE ONE (09:19)
[2018-11-15] MEDS ORDERED: HYDROmorphone 1 MG/ML 1 ML SYRINGE IVP ONE (09:21)
[2018-11-15] MEDS ORDERED: NITROGLYCERIN 1000MCG/10ML SYRINGE INTRACORON ONE (09:31)
[2018-11-15] MEDS ORDERED: SODIUM CHLORIDE 0.9% 1,000 ML IV SCH (09:45)
[2018-11-15] MEDS ORDERED: ATROPINE SULFATE 0.1 MG/ML 10ML SYRINGE IV PRN (09:45)
[2018-11-15] MEDS ORDERED: RX INFO: IV CONTRAST WAS GIVEN 1 EACH MISC MISCELLANE PRN (09:45)
[2018-11-15] MEDS ORDERED: MAG HYDROX/AL HYDROX/SIMETH 30 ML CUP PO PRN (09:45)
[2018-11-15] MEDS ORDERED: ZOLPIDEM 5 MG TAB PO PRN (09:45)
--- NOTE | 2018-11-15 11:59 | CC ---
CARDIAC CATHETERIZATION REPORT DATE OF SERVICE: 11/15/2016 PERFORMING PHYSICIAN: Phoenix Araujo MD, Revenue Officer. PROCEDURE PERFORMED: 1. Selective left and right coronary angiogram. 2. Left internal mammary artery angiogram. 3. SVG to diagonal, ramus intermedius, and left circumflex angiogram. 4. Left heart catheterization. 5. Successful stenting of the ostial and proximal left circumflex using 2.75 x 18 mm Xience EMANI with an excellent angiographic results and reduction of stenosis from 90% to 0%. INDICATION: This is a pleasant 68-year-old gentleman with history of coronary artery disease with the last heart catheterization was performed about 2 years ago, revealed severe triple- vessel coronary artery disease with patent SANCHEZ to LAD, and intermediate to severe disease involving the SVG to diagonal, occluded SVG to ramus intermedius and occluded SVG to the left circumflex. At that point, the patient underwent successful stenting of the [place] circumflex as well as successful stenting of the right coronary artery. The SVG to diagonal at that point was treated medically after an FFR was performed and came into be nonischemic. Recently, he was experiencing symptoms of chest pain and shortness of breath. He underwent a myocardial perfusion imaging stress test and that revealed an anterior and inferior ischemia. Because of that, heart catheterization was advised. APPROACH: Right common femoral artery. COMPLICATION: None. LEVEL OF SEDATION: Moderate with sedation length of 53 minutes. PROCEDURE DESCRIPTION: After obtaining an informed consent, the patient was brought to the cardiac collaborative teacher. The right common femoral artery was cannulated using micropuncture technique, the micropuncture wire passed easily, then I placed a 6-Faroese sheath in the right common femoral artery. After that, I did selective left and right coronary angiogram using JL4 and JR4 catheters. I did SANCHEZ to LAD angiogram using the JR4 catheter. SVG to left circumflex, ramus intermedius, and diagonal angiogram performed using the JR4 catheter as well. Left heart catheterization was performed using 6-Faroese pigtail catheter. After that, I did intervene on the left circumflex. Please see a separate paragraph for that. SELECTIVE CORONARY ANGIOGRAM: 1. LEFT MAIN: The left main appeared to have mild disease only. It bifurcates into left circumflex, ramus intermedius, and left anterior descending artery. 2. The left circumflex is a medium to large caliber vessel with a stent in the ostium with severe in-stent restenosis. 3. The ramus intermedius is a medium caliber vessel with severe ostial disease. 4. The LAD is occluded in the proximal portion. 5. The right coronary artery is a large caliber vessel. The RCA is stented in the midportion and the stent is patent. There is no other disease was identified in the right coronary artery. The RCA distally bifurcates into PDA and PLV branches both appeared to be angiographically normal. CORONARY BYPASSES ANGIOGRAM: 1. SANCHEZ to LAD is patent. 2. SVG to ramus intermedius is occluded. 3. SVG to the left circumflex is occluded. 4. The SVG to diagonal has intermediate to severe lesion in the proximal portion, appeared to be in the range of 60% to 70%.. Increase likely worse compared to before. HEMODYNAMICS: The left ventricular end-diastolic pressure was about 12 mmHg without significant gradient across the aortic valve. PCI OF THE LEFT CIRCUMFLEX: Anticoagulation was initiated using Angiomax. Subsequently, I did engage the left main using a JL short tip guide. I wired the left circumflex using a run-through wire. I did balloon angioplasty using 2.5 x 12 mm balloon. Subsequently, there was intermedius coronary artery. I did wire the ramus intermedius using a whisper wire. I did balloon angioplasty of the ramus intermedius coronary artery using 2.5 x 12 mm balloon. After that, I pulled the wire from the ramus and redirected the wire toward the left circumflex. After that, I deployed in the left circumflex a 2.5 x 18 mm Xience EMANI. Stent was positioned under fluoroscopic guidance and deployed under its nominal pressure. The following angiogram showed good result with good flow in both circumflex as well as the ramus intermedius. The procedure was completed without any complications. CONCLUSION: 1. Chest discomfort and shortness of breath associated with abnormal myocardial perfusion imaging showing an anterior and inferior ischemia. 2. Severe triple-vessel coronary artery disease. 3. The SANCHEZ to LAD is patent. 4. Occluded SVG to ramus intermedius. 5. Occluded SVG to left circumflex. 6. Intermediate to severe disease involving the SVG to diagonal. 7. Patent stent in the right coronary artery. 8. Successful stenting of the proximal left circumflex using 2.75 x 18 mm Xience EMANI with an excellent angiographic results and reduction of stenosis from 90% to 0%. 9. Successful balloon angioplasty of the ramus intermedius with reduction of stenosis from 90% to 0%. POSTPROCEDURE MANAGEMENT: 1. Dual anti-platelet therapy. 2. Aggressive cholesterol control. 3. Follow up with the patient. 4. Medical treatment for the SVG to diagonal at this point with possible PCI down the line. MMODL / IJN: [id number] /
[2018-11-15 12:59] LABS: Glucose,Whole Blood 235 mg/dL (75-99)
[2018-11-15] MEDS: INSULIN ASPART (NovoLOG) 100 UNIT/ML VIAL SQ SCH ×2 (13:22→17:13)
[2018-11-15 16:55] LABS: Glucose,Whole Blood 262 mg/dL (75-99)
[2018-11-15] MEDS ORDERED: INSULIN ASPART (NovoLOG) 100 UNIT/ML VIAL SQ SCH (17:30)
[2018-11-15 20:39] LABS: Glucose,Whole Blood 184 mg/dL (75-99)
[2018-11-15] MEDS: INSULIN DETEMIR (LEVEMIR) 100 UNIT/ML SYR SQ SCH (20:46)
[2018-11-15] MEDS ORDERED: LISINOPRIL 20 MG TAB PO SCH (21:00)
[2018-11-15] MEDS ORDERED: ATORVASTATIN 40 MG TAB PO SCH (21:00)
[2018-11-15] MEDS ORDERED: ASPIRIN 325 MG TAB PO SCH (21:00)
[2018-11-15] MEDS ORDERED: METOPROLOL TARTRATE 50 MG TAB PO SCH (21:00)
[2018-11-16 02:53] LABS: Glucose,Whole Blood 58 mg/dL (75-99)
[2018-11-16 03:19] LABS: Glucose,Whole Blood 86 mg/dL (75-99)
[2018-11-16 04:36] VITALS: RESP 16
[2018-11-16] MEDS: INSULIN ASPART (NovoLOG) 100 UNIT/ML VIAL SQ SCH ×2 (05:22→07:00)
[2018-11-16 06:08] LABS: Glucose,Whole Blood 261 mg/dL (75-99)
[2018-11-16 06:39] LABS: Basophils % (A) 0 %; Eosinophils # (A) 0.3 k/uL (0-0.7); Eosinophils % (A) 4 %; HCT 45.4 % (39.0-53.0); HGB 13.8 gm/dL (13.0-17.5); Lymphocytes # (A) 1.3 k/uL (1.0-4.8); Lymphocytes % (A) 20 %; MCH 29.4 pg (25.0-35.0); MCHC 30.4 g/dL (31.0-37.0); MCV 96.6 fL (80.0-100.0); Mean Platelet Volume 6.9; Monocytes # (A) 0.4 k/uL (0-1.0); Monocytes % (A) 6 %; Neutrophils # (A) 4.4 k/uL (1.3-7.7); Neutrophils % (A) 67 %; Platelet Count 153 k/uL (150-450); RDW 12.6 % (11.5-15.5); WBC 6.6 k/uL (3.8-10.6)
[2018-11-16 07:28] LABS: African American GFR (CKD) >90 (>60 ml/min/1.73 sqM); Anion Gap 6 mmol/L; Blood Urea Nitrogen 17 mg/dL (9-20); Calcium 8.6 mg/dL (8.4-10.2); Carbon Dioxide 27 mmol/L (22-30); Chloride 105 mmol/L (98-107); Glucose 251 mg/dL (74-99); Potassium 5.1 mmol/L (3.5-5.1); Sodium 138 mmol/L (137-145)
[2018-11-16] MEDS ORDERED: CLOPIDOGREL 75 MG TAB PO SCH (09:00)
[2018-11-16] MEDS ORDERED: ISOSORBIDE MONONITRATE ER 60 MG TAB.ER.24H PO SCH (09:00)
[2018-11-16] MEDS: INSULIN DETEMIR (LEVEMIR) 100 UNIT/ML SYR SQ SCH (09:40)
[2018-11-16 09:50] VITALS: BP 133/71; PULSE 62; TEMP 97.5
--- NOTE | 2018-11-16 13:15 | DS ---
DISCHARGE SUMMARY ADMISSION DATE: November 15, 2018. DISCHARGE DATE: November 16, 2018 BRIEF HISTORY: This is a 68-year-old gentleman who was admitted to the hospital yesterday and underwent a heart catheterization and was found to have severe disease involving the left circumflex coronary artery. He underwent successful stenting of the left circumflex with good angiographic results and without any complication. He is going to be discharged on dual anti-platelet therapy as well as statin and I will follow up with the patient in a week in the office. MMDIANE / RAFITAN: [id number] /
== END 2018-11-16 10:19 | disposition home or self-care (01) ==
LOC: CATHCVL 07:27 → 3SCARD 09:38 → CATHCVL 11-16 10:19
PROVIDERS: ATTEND Internal Medicine Interventional Cardiology
DX: I25.110 Atherosclerotic heart disease of native coronary artery with unstable angina pectoris (principal); I25.710 Atherosclerosis of autologous vein coronary artery bypass graft(s) with unstable angina pectoris; I10 Essential (primary) hypertension; T82.855A Stenosis of coronary artery stent, initial encounter; E78.5 Hyperlipidemia, unspecified; E78.00 Pure hypercholesterolemia, unspecified; R94.39 Abnormal result of other cardiovascular function study; E11.9 Type 2 diabetes mellitus without complications; Z82.49 Family history of ischemic heart disease and other diseases of the circulatory system; Z95.1 Presence of aortocoronary bypass graft; Z95.5 Presence of coronary angioplasty implant and graft; Z79.82 Long term (current) use of aspirin; Z79.4 Long term (current) use of insulin; Z79.899 Other long term (current) drug therapy
CPT/HCPCS: 93459; 80048; 85025; C9600; C1769 ×5; C1887 ×2; C1725 ×2; C1894; C1874; J2001; J1170; J0583; J2250

== ENCOUNTER 2019-01-14 10:50 | Observation (INO) | payer MEDICARE ==
[2019-01-14] MEDS ORDERED: ASPIRIN 81 MG PO STA (11:06)
[2019-01-14] MEDS ORDERED: NITROGLYCERIN OINT 1 INCH/GM PACKET TOPICAL STA (11:06)
--- NOTE | 2019-01-14 11:09 | ED ---
General Adult HPI - General Chief complaint: Neck Pain/Injury Stated complaint: back pain Time Seen by Provider: 01/14/19 10:56 Source: patient, RN notes reviewed Mode of arrival: ambulatory Limitations: no limitations - History of Present Illness Initial comments: Patient is a pleasant 68-year-old male presenting to the emergency Department with complaints of upper back discomfort. Patient had 2 episodes this morning. First episode lasted around 12 minutes, second episode lasted just a couple of minutes. Discomfort is described as an ache. Symptoms are somewhat similar to when he had blockages back in 1999 and needed bypass. Patient denies any chest discomfort. No dyspnea. No nausea. No diaphoresis. Patient is currently symptom-free. Patient was in a somewhat odd position at the onset of symptoms and question if that had something to do with it. - Related Data Home Medications Medication Instructions Recorded Confirmed Aspirin 325 mg PO HS 02/08/17 01/14/19 Atorvastatin [Lipitor] 40 mg PO HS 02/08/17 01/14/19 Enalapril [Vasotec] 10 mg PO HS 02/08/17 01/14/19 Insulin Glargine [Lantus] 25 unit SQ BID 02/08/17 01/14/19 Isosorbide Mononitrate ER [Imdur] 60 mg PO QAM 02/08/17 01/14/19 Metoprolol Tartrate [Lopressor] 50 mg PO HS 02/08/17 01/14/19 INSULIN ASPART (NovoLOG) [NovoLOG 20 unit SQ BID-W/MEALS 03/01/17 01/14/19 (formulary)] Previous Rx's Medication Instructions Recorded Clopidogrel [Plavix] 75 mg PO DAILY #90 tab 11/16/18 Allergies Allergy/AdvReac Type Severity Reaction Status Date / Time No Known Allergies Allergy Verified 01/14/19 11:02 Review of Systems ROS Statement: Those systems with pertinent positive or pertinent negative responses have been documented in the HPI. ROS Other: All systems not noted in ROS Statement are negative. Constitutional: Denies: fever Eyes: Denies: eye pain ENT: Denies: ear pain Respiratory: Denies: cough, dyspnea Cardiovascular: Denies: chest pain Endocrine: Denies: fatigue Gastrointestinal: Denies: abdominal pain, nausea, vomiting Genitourinary: Denies: dysuria Musculoskeletal: Reports: as per HPI Skin: Denies: rash Neurological: Denies: weakness Past Medical History Past Medical History: Coronary Artery Disease (CAD), Diabetes Mellitus, Hyperlipidemia, Hypertension, Musculoskeletal Disorder Additional Past Medical History / Comment(s): shoulder injury in May History of Any Multi-Drug Resistant Organisms: None Reported Past Surgical History: Coronary Bypass/CABG, Heart Catheterization, Heart Catheterization With Stent Additional Past Surgical History / Comment(s): cabg x4 2000 Past Anesthesia/Blood Transfusion Reactions: No Reported Reaction Date of Last Stent Placement:: 03/06/17 Past Psychological History: No Psychological Hx Reported Smoking Status: Never smoker Past Alcohol Use History: None Reported Past Drug Use History: None Reported - Past Family History Mother Family Medical History: No Reported History General Exam Limitations: no limitations General appearance: alert, in no apparent distress Head exam: Present: atraumatic Eye exam: Present: normal appearance, PERRL ENT exam: Present: normal oropharynx Neck exam: Present: normal inspection Respiratory exam: Present: normal lung sounds bilaterally. Absent: chest wall tenderness Cardiovascular Exam: Present: regular rate, normal rhythm Expanded Peripheral pulses: 2+: Radial (R), Radial (L), Dorsalis Pedis (R), Dorsalis Pedis (L) GI/Abdominal exam: Present: soft. Absent: tenderness Extremities exam: Present: normal inspection. Absent: pedal edema, calf tenderness Back exam: Present: normal inspection. Absent: tenderness Neurological exam: Present: alert Psychiatric exam: Present: normal affect, normal mood Skin exam: Present: normal color Course Vital Signs 01/14/19 01/14/19 10:52 11:42 Temperature 98.7 F Pulse Rate 61 68 Respiratory 16 18 Rate Blood Pressure 180/89 135/73 O2 Sat by Pulse 98 96 Oximetry EKG Findings - EKG Comments: EKG Findings:: Normal sinus rhythm at 61. [place] 152. QRS 110. QT 4:30. QTC 432. Normal axis. Inferior Q waves with nonspecific ST-T. Reviewed previous EKGs from 11/15/2018 Medical Decision Making - Medical Decision Making Patient reevaluated and resting comfortably in bed. Patient and family updated on results and plan. Case was discussed with Dr. Metz, who will admit covering for Dr. Dhillon. - Lab Data Result diagrams: 01/14/19 11:17 01/14/19 11:17 Lab Results 01/14/19 01/14/1901/14/19 Range/Units 11:17 11:17 11:17 WBC 6.4 (3.8-10.6) k/uL RBC 5.02 (4.30-5.90) m/uL Hgb 16.0 (13.0-17.5) gm/dL Hct 47.8 (39.0-53.0) % MCV 95.2 (80.0-100.0) fL MCH 31.9 (25.0-35.0) pg MCHC 33.5 (31.0-37.0) g/dL RDW 12.7 (11.5-15.5) % Plt Count 205 (150-450) k/uL Neutrophils % 65 % Lymphocytes % 23 % Monocytes % 5 % Eosinophils % 3 % Basophils % 1 % Neutrophils # 4.2 (1.3-7.7) k/uL Lymphocytes # 1.5 (1.0-4.8) k/uL Monocytes # 0.3 (0-1.0) k/uL Eosinophils # 0.2 (0-0.7) k/uL Basophils # 0.0 (0-0.2) k/uL PT 10.6 (9.0-12.0) sec INR 1.0 (<1.2) APTT 26.0 (22.0-30.0) sec D-Dimer 0.19 (<0.60) mg/L FEU Sodium 136 L (137-145) mmol/L Potassium 4.7 (3.5-5.1) mmol/L Chloride 101 (98-107) mmol/L Carbon Dioxide 27 (22-30) mmol/L Anion Gap 8 mmol/L BUN 16 (9-20) mg/dL Creatinine 0.68 (0.66-1.25) mg/dL Est GFR (CKD-EPI)AfAm >90 (>60 ml/min/1.73 sqM) Est GFR (CKD-EPI)NonAf >90 (>60 ml/min/1.73 sqM) Glucose 406 H (74-99) mg/dL Calcium 9.3 (8.4-10.2) mg/dL Magnesium 2.0 (1.6-2.3) mg/dL Total Bilirubin 0.7 (0.2-1.3) mg/dL AST 19 (17-59) U/L ALT 16 L (21-72) U/L Alkaline Phosphatase 65 (38-126) U/L Creatine Kinase 65 (55-170) U/L Troponin I (0.000-0.034) ng/mL Total Protein 6.8 (6.3-8.2) g/dL Albumin 4.0 (3.5-5.0) g/dL 01/14/19 Range/Units 11:17 WBC (3.8-10.6) k/uL RBC (4.30-5.90) m/uL Hgb (13.0-17.5) gm/dL Hct (39.0-53.0) % MCV (80.0-100.0) fL MCH (25.0-35.0) pg MCHC (31.0-37.0) g/dL RDW (11.5-15.5) % Plt Count (150-450) k/uL Neutrophils % % Lymphocytes % % Monocytes % % Eosinophils % % Basophils % % Neutrophils # (1.3-7.7) k/uL Lymphocytes # (1.0-4.8) k/uL Monocytes # (0-1.0) k/uL Eosinophils # (0-0.7) k/uL Basophils # (0-0.2) k/uL PT (9.0-12.0) sec INR (<1.2) APTT (22.0-30.0) sec D-Dimer (<0.60) mg/L FEU Sodium (137-145) mmol/L Potassium (3.5-5.1) mmol/L Chloride (98-107) mmol/L Carbon Dioxide (22-30) mmol/L Anion Gap mmol/L BUN (9-20) mg/dL Creatinine (0.66-1.25) mg/dL Est GFR (CKD-EPI)AfAm (>60 ml/min/1.73 sqM) Est GFR (CKD-EPI)NonAf (>60 ml/min/1.73 sqM) Glucose (74-99) mg/dL Calcium (8.4-10.2) mg/dL Magnesium (1.6-2.3) mg/dL Total Bilirubin (0.2-1.3) mg/dL AST (17-59) U/L ALT (21-72) U/L Alkaline Phosphatase (38-126) U/L Creatine Kinase (55-170) U/L Troponin I <0.012 (0.000-0.034) ng/mL Total Protein (6.3-8.2) g/dL Albumin (3.5-5.0) g/dL - Radiology Data Radiology results: image reviewed (Chest x-ray shows hiatal hernia versus intrathoracic stomach. Age indeterminate compression deformity of lumbar. No acute cardiopulmonary process.) Disposition Clinical Impression: Upper back pain Disposition: ADMITTED IP TO THIS HOSP Is patient prescribed a controlled substance at d/c from ED?: No Referrals: Eva Awan MD [Primary Care Provider] - 1-2 days Decision Time: 12:32
[2019-01-14 11:45] LABS: Basophils % (A) 1 %; Eosinophils # (A) 0.2 k/uL (0-0.7); Eosinophils % (A) 3 %; HCT 47.8 % (39.0-53.0); Lymphocytes # (A) 1.5 k/uL (1.0-4.8); Lymphocytes % (A) 23 %; MCH 31.9 pg (25.0-35.0); MCHC 33.5 g/dL (31.0-37.0); MCV 95.2 fL (80.0-100.0); Mean Platelet Volume 6.9; Monocytes # (A) 0.3 k/uL (0-1.0); Monocytes % (A) 5 %; Neutrophils # (A) 4.2 k/uL (1.3-7.7); Neutrophils % (A) 65 %; Platelet Count 205 k/uL (150-450); RBC 5.02 m/uL (4.30-5.90); RDW 12.7 % (11.5-15.5); WBC 6.4 k/uL (3.8-10.6)
[2019-01-14 11:53] LABS: ALT 16 U/L (21-72); AST 19 U/L (17-59); African American GFR (CKD) >90 (>60 ml/min/1.73 sqM); Alkaline Phosphatase 65 U/L (38-126); Anion Gap 8 mmol/L; Blood Urea Nitrogen 16 mg/dL (9-20); Calcium 9.3 mg/dL (8.4-10.2); Carbon Dioxide 27 mmol/L (22-30); Chloride 101 mmol/L (98-107); Creatine Kinase 65 U/L (55-170); Glucose 406 mg/dL (74-99); Potassium 4.7 mmol/L (3.5-5.1); Sodium 136 mmol/L (137-145); Total Bilirubin 0.7 mg/dL (0.2-1.3); Total Protein 6.8 g/dL (6.3-8.2)
--- NOTE | 2019-01-14 11:53 | XR ---
EXAMINATION TYPE: XR chest 2V DATE OF EXAM: 01/14/2019 COMPARISON: 06/03/2008 HISTORY: Chest pain TECHNIQUE: Frontal and lateral views of the chest are obtained. FINDINGS: There is a large hiatal hernia versus partial intrathoracic stomach. Cardiomediastinal marcellus houette is partially obscured but appears stable from the prior. Post CABG changes of the chest are n oted. 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 Flattening of the diaphragms on the lateral view sugge sts underlying COPD. Upper lumbar spine vertebral body compression deformity is age indeterminant. Mi ld diffuse osseous demineralization is noted. No focal consolidation, pleural effusion or pneumothora x. IMPRESSION: 1. No acute cardiopulmonary process. 2. Age-indeterminate compression deformity of the upper lumbar spine. 3. Partial intrathoracic stomach versus large hiatal hernia.
[2019-01-14 12:02] LABS: D-Dimer 0.19 mg/L FEU (<0.60); Prothrombin Time 10.6 sec (9.0-12.0)
[2019-01-14] MEDS ORDERED: NITROGLYCERIN SL TABS 0.4 MG TAB SUBLINGUAL PRN (12:32)
[2019-01-14 13:46] VITALS: BMI 27.9
--- NOTE | 2019-01-14 13:46 | P.CRDCN ---
History of Present Illness History of present illness: This is a pleasant 68-year-old male past medical history significant for coronary artery disease status post bypass grafting, dyslipidemia and hypertension. He follows in the office with Dr. Araujo. We have been asked to see him in consultation secondary to back pain suggestive of anginal equivalent. The patient initially underwent bypass grafting in 1999 in the setting of an acute myocardial infarction. At that time he had a SANCHEZ to LAD, SVG to the ramus, SVG to the circumflex and an SVG to the diagonal branch. In November of this year he underwent cardiac catheterization revealing an occluded SVG to ramus and SVG to circumflex. There was also a proximal lesion in the SVG to diagonal branch of 60-70%. At that time he underwent successful stent placement to the circumflex artery as well as balloon angioplasty to the ostial ramus. The RCA stent at that time was patent. He was advised maximal medical therapy for the SVG to diagonal lesion and was recommended proceeding with PCI if he had further symptoms of angina. He states this morning he was sitting on the edge of his bed when he felt a tight sensation in the upper back between the shoulder blades. This discomfort lasted for about 10-12 minutes with no radiation to the arm, chest, neck or jaw. He denies any associated shortness of breath, dizziness, nausea, vomiting, palpitations or diaphoresis. He does think that he felt a little bit jittery. The symptoms reminded him of how he felt in the year 1999 when he suffered a myocardial infarction and for that reason he decided to come to the hospital for further evaluation. Once he stood up and started to get dressed after the pain had subsided to come to the hospital he had another episode of pain in the back. Similar fashion to the previous episode with no radiation or associated symptoms. Again this subsided on its own after about 10-15 minutes. He is seen and examined sitting up in bed with his at the bedside. Currently has no chest discomfort. EKG reveals sinus mechanism with inferior Q wave no acute ST or T wave abnormalities noted. Chest x-ray is negative for an acute cardiopulmonary process. Partial intrathoracic stomach versus large hiatal hernia is noted. Laboratory data reviewed, CBC unremarkable, d-dimer 0.19, sodium 136, potassium 4.7, creatinine 0.68, magnesium 2.0, cardiac enzymes negative 1. Current cardiac medications include aspirin 81 mg daily, atorvastatin 40 mg daily, Plavix 75 mg daily, enalapril 10 mg daily, Imdur 60 mg daily and Lopressor 50 mg at bedtime. Most recent echocardiogram obtained in the office October 2018 reveals preserved LV systolic function with ejection fraction 55% and mild mitral regurgitation. At the time of my exam: CONSTITUTIONAL: Denies fever. Denies chills. EYES: Denies blurred vision. Denies vision changes. Denies eye pain. EARS, NOSE, MOUTH & THROAT: Denies headache. Denies sore throat. Denies ear pain. CARDIOVASCULAR: Denies chest pain. Denies shortness of breath. Denies orthopnea. Denies PND. Denies palpitations. RESPIRATORY: Denies cough. GASTROINTESTINAL: Denies abdominal pain. Denies diarrhea. Denies constipation. Denies nausea. Denies vomiting. MUSCULOSKELETAL: Denies myalgias. INTEGUMENTARY: Denies pruitis. Denies rash. NEUROLOGIC: Denies numbness. Denies tingling. Denies weakness. PSYCHIATRIC: Denies anxiety. Denies depression. ENDOCRINE: Denies fatigue. Denies weight change. Denies polydipsia. Denies polyurina. GENITOURINARY: Denies burning, hematuria or urgency with micturation. HEMATOLOGIC: Denies history of anemia. Denies bleeding. Blood pressure 129/82 heart rate 64 afebrile maintaining oxygen saturation on room air GENERAL: This is a 68-year-old male in no apparent distress at the time of my examination. HEENT: Head is atraumatic, normocephalic. Pupils are equal, round. Sclerae anicteric. Conjunctivae are clear. Mucous membranes of the mouth are moist. Neck is supple. There is no jugular venous distention. No carotid bruit is heard. LUNGS: Clear to auscultation no wheezes, rales or rhonchi. No chest wall tenderness is noted on palpation or with deep breathing. HEART: Regular rate and rhythm without murmurs, rubs or gallops. S1 and S2 heard. ABDOMEN: Soft, nontender. Bowel sounds are heard. No organomegaly noted. EXTREMITIES: No evidence of peripheral edema and no calf tenderness noted. VASCULAR: Radial and dorsalis pedis pulses palpated, no evidence of clubbing. NEUROLOGIC: Patient is awake, alert and oriented x3. ASSESSMENT Upper back discomfort possibly suggestive of unstable angina in a patient with known coronary artery disease Coronary artery disease status post bypass grafting and subsequent stent placement and angioplasty Hypertension Dyslipidemia PLAN Continue to obtain serial cardiac enzymes to rule out an acute coronary event. Continue atorvastatin, Plavix, Imdur, lisinopril and Lopressor as previously prescribed. Decrease aspirin to 81 mg daily. Nothing by mouth after midnight tonight. Depending on patient's clinical course will consider coronary angiography and PCI of the SVG to diagonal branch tomorrow morning. Thank you kindly for this consultation. Nurse Practitioner note has been reviewed, I agree with a documented findings and plan of care. Patient was seen and examined. Past Medical History Past Medical History: Coronary Artery Disease (CAD), Diabetes Mellitus, Hyperlipidemia, Hypertension, Musculoskeletal Disorder Additional Past Medical History / Comment(s): shoulder injury in May History of Any Multi-Drug Resistant Organisms: None Reported Past Surgical History: Coronary Bypass/CABG, Heart Catheterization, Heart Catheterization With Stent Additional Past Surgical History / Comment(s): cabg x4 2000 Past Anesthesia/Blood Transfusion Reactions: No Reported Reaction Date of Last Stent Placement:: 03/06/17 Past Psychological History: No Psychological Hx Reported Smoking Status: Never smoker Past Alcohol Use History: None Reported Past Drug Use History: None Reported - Past Family History Mother Family Medical History: No Reported History Medications and Allergies Home Medications Medication Instructions Recorded Confirmed Type Aspirin 325 mg PO HS 02/08/17 01/14/19 History Atorvastatin [Lipitor] 40 mg PO HS 02/08/17 01/14/19 History Enalapril [Vasotec] 10 mg PO HS 02/08/17 01/14/19 History Insulin Glargine [Lantus] 25 unit SQ BID 02/08/17 01/14/19 History Isosorbide Mononitrate ER [Imdur] 60 mg PO QAM 02/08/17 01/14/19 History Metoprolol Tartrate [Lopressor] 50 mg PO HS 02/08/17 01/14/19 History INSULIN ASPART (NovoLOG) [NovoLOG 20 unit SQ BID-W/MEALS 03/01/17 01/14/19 History (formulary)] Clopidogrel [Plavix] 75 mg PO DAILY #90 tab 11/16/18 01/14/19 Rx Allergies Allergy/AdvReac Type Severity Reaction Status Date / Time No Known Allergies Allergy Verified 01/14/19 11:02 Physical Exam Vitals: Vital Signs Temp Pulse Resp BP Pulse Ox 01/14/19 12:58 97.5 F L 16 01/14/19 12:30 64 21 94 L 01/14/19 12:20 67 14 129/82 95 01/14/19 12:10 63 13 129/82 95 01/14/19 12:00 62 9 L 135/73 96 01/14/19 11:50 67 18 135/73 94 L 01/14/19 11:42 68 18 135/73 96 01/14/19 11:40 135/73 01/14/19 11:30 65 11 L 152/78 97 01/14/19 11:20 62 8 L 152/78 97 01/14/19 11:13 61 14 96 01/14/19 10:52 98.7 F 61 16 180/89 98 Intake and Output 01/13/19 01/14/19 01/14/19 22:59 06:59 14:59 Other: Weight 98.838 kg Results 01/14/19 11:17 01/14/19 11:17 Cardiac Enzymes 01/14/19 01/14/19 Range/Units 11:17 11:17 AST 19 (17-59) U/L Troponin I <0.012 (0.000-0.034) ng/mL Coagulation 01/14/19 Range/Units 11:17 PT 10.6 (9.0-12.0) sec APTT 26.0 (22.0-30.0) sec CBC 01/14/19 Range/Units 11:17 WBC 6.4 (3.8-10.6) k/uL RBC 5.02 (4.30-5.90) m/uL Hgb 16.0 (13.0-17.5) gm/dL Hct 47.8 (39.0-53.0) % Plt Count 205 (150-450) k/uL Comprehensive Metabolic Panel 01/14/19 Range/Units 11:17 Sodium 136 L (137-145) mmol/L Potassium 4.7 (3.5-5.1) mmol/L Chloride 101 (98-107) mmol/L Carbon Dioxide 27 (22-30) mmol/L BUN 16 (9-20) mg/dL Creatinine 0.68 (0.66-1.25) mg/dL Glucose 406 H (74-99) mg/dL Calcium 9.3 (8.4-10.2) mg/dL AST 19 (17-59) U/L ALT 16 L (21-72) U/L Alkaline Phosphatase 65 (38-126) U/L Total Protein 6.8 (6.3-8.2) g/dL Albumin 4.0 (3.5-5.0) g/dL Current Medications Generic Name Dose Route Start Last Admin Trade Name Freq PRN Reason Stop Dose Admin Aspirin 325 mg 01/15/19 09:00 Aspirin PO DAILY [facility] Atorvastatin Calcium 40 mg 01/14/19 21:00 Lipitor PO HS [facility] Clopidogrel Bisulfate 75 mg 01/15/19 09:00 Plavix PO DAILY [facility] Insulin Aspart 20 unit 01/14/19 17:30 Novolog SQ BID-W/MEALS [facility] Insulin Aspart 0 unit 01/15/19 12:30 Novolog SQ W/LUNCH [facility] Protocol Insulin Detemir 25 unit 01/14/19 21:00 Levemir SQ BID@0700,2100 [facility] Isosorbide Mononitrate 60 mg 01/15/19 09:00 Imdur PO QAM [facility] Lisinopril 20 mg 01/14/19 21:00 Zestril PO HS [facility] Metoprolol Tartrate 50 mg 01/14/19 21:00 Lopressor PO HS [facility] Nitroglycerin 0.4 mg 01/14/19 12:32 Nitrostat SUBLINGUAL Q5M PRN Chest Pain Nitroglycerin 1 inch 01/14/19 18:00 Nitro-Bid Oint TOPICAL Q6HR [facility] Intake and Output 01/13/19 01/14/19 01/14/19 22:59 06:59 14:59 Other: Weight 98.838 kg Patient Weight 01/15/19 06:59 Weight 98.838 kg 01/14/19 11:17 01/14/19 11:17
--- NOTE | 2019-01-14 13:47 | P.HPIM ---
History of Present Illness H&P Date: 01/14/19 Chief Complaint: Back pain This is a 68-year-old male patient of Dr. Dhillon. Patient presented with complaint of back pain. Patient reports that the back pain occurred while lying in bed and lasted approximately 12 minutes. Patient had 2 episodes. Patient reports that the pain felt similar to when he required open heart surgery in 1999. Patient denies any associated nausea vomiting or diaphoresis. Additional medical history includes coronary artery bypass graft surgery in 1999, 2 cardiac stents in November 2018 in which she has been compliant with his Plavix, diabetes mellitus type 2, essential hypertension, hyperlipidemia and musculoskeletal disorder. Chest x-ray completed showing no acute cardiopulmonary process. Age indeterminate compression deformity of the upper lumbar spine. Partial intrathoracic stomach versus large hiatal hernia. EKG completed showing normal sinus rhythm. Possible inferior infarct age undetermined. Initial troponin negative. Initial blood sugar 406 the patient reports that this was prior to taking his medication. Patient denies any recent illness denies any recent injury or heavy lifting. At this time cardiology services have been consulted. Will order x-ray of lumbar spine. Patient denies chest pain or shortness deja th. Patient denies nausea vomiting or diarrhea. Patient denies any urinary burning or frequency. Review of Systems please refer to HPI otherwise unremarkable Past Medical History Past Medical History: Coronary Artery Disease (CAD), Diabetes Mellitus, Hyperlipidemia, Hypertension, Musculoskeletal Disorder Additional Past Medical History / Comment(s): shoulder injury in May History of Any Multi-Drug Resistant Organisms: None Reported Past Surgical History: Coronary Bypass/CABG, Heart Catheterization, Heart Catheterization With Stent Additional Past Surgical History / Comment(s): cabg x4 2000 Past Anesthesia/Blood Transfusion Reactions: No Reported Reaction Date of Last Stent Placement:: 03/06/17 Past Psychological History: No Psychological Hx Reported Smoking Status: Never smoker Past Alcohol Use History: None Reported Past Drug Use History: None Reported - Past Family History Mother Family Medical History: No Reported History Medications and Allergies Home Medications Medication Instructions Recorded Confirmed Type Aspirin 325 mg PO HS 02/08/17 01/14/19 History Atorvastatin [Lipitor] 40 mg PO HS 02/08/17 01/14/19 History Enalapril [Vasotec] 10 mg PO HS 02/08/17 01/14/19 History Insulin Glargine [Lantus] 25 unit SQ BID 02/08/17 01/14/19 History Isosorbide Mononitrate ER [Imdur] 60 mg PO QAM 02/08/17 01/14/19 History Metoprolol Tartrate [Lopressor] 50 mg PO HS 02/08/17 01/14/19 History INSULIN ASPART (NovoLOG) [NovoLOG 20 unit SQ BID-W/MEALS 03/01/17 01/14/19 History (formulary)] Clopidogrel [Plavix] 75 mg PO DAILY #90 tab 11/16/18 01/14/19 Rx Allergies Allergy/AdvReac Type Severity Reaction Status Date / Time No Known Allergies Allergy Verified 01/14/19 11:02 Physical Exam Vitals: Vital Signs Temp Pulse Resp BP Pulse Ox 01/14/19 12:58 97.5 F L 16 01/14/19 12:30 64 21 94 L 01/14/19 12:20 67 14 129/82 95 01/14/19 12:10 63 13 129/82 95 01/14/19 12:00 62 9 L 135/73 96 01/14/19 11:50 67 18 135/73 94 L 01/14/19 11:42 68 18 135/73 96 01/14/19 11:40 135/73 01/14/19 11:30 65 11 L 152/78 97 01/14/19 11:20 62 8 L 152/78 97 01/14/19 11:13 61 14 96 01/14/19 10:52 98.7 F 61 16 180/89 98 Intake and Output 01/13/19 01/14/19 01/14/19 22:59 06:59 14:59 Other: Weight 98.838 kg Head normocephalic Neck supple Lungs clear to auscultation bilaterally no wheezing or crackles Heart regular rate and rhythm S1-S2, no rub or gallop Abdomen is soft nontender nondistended positive bowel sounds no hepatosplen omegaly Extremities no edema Neuro alert and orientated to 3 Results CBC & Chem 7: 01/14/19 11:17 01/14/19 11:17 Labs: Abnormal Lab Results - Last 24 Hours (Table) 01/14/19 Range/Units 11:17 Sodium 136 L (137-145) mmol/L Glucose 406 H (74-99) mg/dL ALT 16 L (21-72) U/L Assessment and Plan Assessment: 1. Back pain rule out cardiac etiology. Initial troponin negative. D-dimer 0.19. Chest x-ray completed showing no acute cardiopulmonary process. Age-inde terminate compression deformity of the upper lumbar spine. Partial intrathoracic stomach versus large hiatal hernia. Cardiology services have been consulted. serial troponins ordered. X-ray of lumbar spine ordered. 2. Coronary artery disease with coronary artery bypass graft surgery in 1999. Most recent cardiac stents in November 2018 to the left circumflex. Patient maintained on statin and Plavix 3. History of diabetes mellitus type 2. Patient has continuous glucose monitoring device in place. Initial blood sugar 406 but this was prior to menstruation a medication per patient blood sugars have been improving home meds resumed. 4. Hyperlipidemia. Patient maintained on statin 5. History of essential hypertension Time with Patient: Greater than 30 (Greater than 60% of the total time spent in counseling and coordination of care. I performed an examination of the patient and discussed their management with the Nurse Practitioner. I have reviewed the Nurse Practitioner's notes and agree with the documented findings and plan of care)
[2019-01-14 14:50] LABS: Glucose,Whole Blood 104 mg/dL (75-99)
[2019-01-14 14:53] LABS: Glucose,Whole Blood 108 mg/dL (75-99)
--- NOTE | 2019-01-14 16:22 | XR ---
Lumbar spine HISTORY: Chronic back pain 3 views of the lumbar spine Loss of disc height is greatest at L5-S1 with associated vacuum phenomenon. There is multilevel spond ylosis. L1 shows anterior wedge compression fracture with loss of height of approximately 50%. Mild k yphosis present. No evident retropulsion. Lumbar vertebral bodies show mild decrease in bone minerali zation. Sclerosis in the posterior elements of the lower lumbar spine compatible with facet arthropat hy. IMPRESSION: Anterior wedge compression fracture L1 of indeterminate age. Degenerative disc disease an d mild osteopenia.
[2019-01-14 16:47] LABS: Glucose,Whole Blood 180 mg/dL (75-99)
[2019-01-14] MEDS: INSULIN ASPART (NovoLOG) 100 UNIT/ML VIAL SQ SCH (17:26)
[2019-01-14] MEDS ORDERED: INSULIN ASPART (NovoLOG) 100 UNIT/ML VIAL SQ SCH (17:30)
[2019-01-14] MEDS: NITROGLYCERIN OINT 1 INCH/GM PACKET TOPICAL SCH ×2 (19:45→21:11)
[2019-01-14 20:53] LABS: Glucose,Whole Blood 198 mg/dL (75-99)
[2019-01-14] MEDS ORDERED: LISINOPRIL 20 MG TAB PO SCH (21:00)
[2019-01-14] MEDS ORDERED: ATORVASTATIN 40 MG TAB PO SCH (21:00)
[2019-01-14] MEDS ORDERED: METOPROLOL TARTRATE 50 MG TAB PO SCH (21:00)
[2019-01-14] MEDS: INSULIN DETEMIR (LEVEMIR) 100 UNIT/ML SYR SQ SCH (21:05)
[2019-01-15 04:19] LABS: Glucose,Whole Blood 90 mg/dL (75-99)
[2019-01-15] MEDS: NITROGLYCERIN OINT 1 INCH/GM PACKET TOPICAL SCH ×2 (05:07→11:22)
[2019-01-15 06:30] LABS: Basophils % (A) 1 %; Eosinophils # (A) 0.3 k/uL (0-0.7); Eosinophils % (A) 5 %; HCT 44.6 % (39.0-53.0); HGB 14.8 gm/dL (13.0-17.5); Lymphocytes # (A) 1.6 k/uL (1.0-4.8); Lymphocytes % (A) 24 %; MCH 31.9 pg (25.0-35.0); MCHC 33.2 g/dL (31.0-37.0); MCV 96.2 fL (80.0-100.0); Mean Platelet Volume 7.2; Monocytes # (A) 0.5 k/uL (0-1.0); Monocytes % (A) 8 %; Neutrophils # (A) 4.2 k/uL (1.3-7.7); Neutrophils % (A) 61 %; Platelet Count 193 k/uL (150-450); RBC 4.64 m/uL (4.30-5.90); RDW 14.3 % (11.5-15.5); WBC 6.9 k/uL (3.8-10.6)
[2019-01-15 06:41] LABS: ALT 17 U/L (21-72); AST 18 U/L (17-59); African American GFR (CKD) >90 (>60 ml/min/1.73 sqM); Albumin 3.7 g/dL (3.5-5.0); Alkaline Phosphatase 53 U/L (38-126); Anion Gap 5 mmol/L; Blood Urea Nitrogen 18 mg/dL (9-20); Calcium 9.2 mg/dL (8.4-10.2); Carbon Dioxide 28 mmol/L (22-30); Chloride 106 mmol/L (98-107); Cholesterol 143 mg/dL (<200); Glucose 83 mg/dL (74-99); HDL Cholesterol 51 mg/dL (40-60); LDL Cholesterol,Calculated 80 mg/dL (0-99); Potassium 4.2 mmol/L (3.5-5.1); Sodium 139 mmol/L (137-145); Total Bilirubin 0.7 mg/dL (0.2-1.3); Total Protein 6.3 g/dL (6.3-8.2); Triglycerides 61 mg/dL (<150)
[2019-01-15 06:50] LABS: Glucose,Whole Blood 84 mg/dL (75-99)
--- NOTE | 2019-01-15 07:45 | P.PN ---
Subjective Progress Note Date: 01/15/19 Principal diagnosis: Atypical chest discomfort This is a pleasant 68-year-old gentleman I follow in the office as an outpatient with history of coronary artery disease and prior coronary artery that was grafting as well as coronary artery stenting, hypertension, and dyslipidemia, was admitted to the hospital with atypical chest discomfort. He underwent heart catheterization recently for increasing shortness of breath and he was found to have severe disease involving the left circumflex which was stented as well as an intermediate to severe disease involving the SVG to diagonal which was treated medically. This time he was ruled out for acute coronary event. On follow-up with him today, January 152018, he is chest pain-free at this point. Overall he is feeling better. I did reassure him regarding the results of the cardiac testing including the EKG and cardiac enzymes. I did advise the patient to get up and around and if he is asymptomatic he might be able to be discharged home and I will follow-up with the patient in a week in the office. Objective - Vital Signs Vital signs: Vital Signs Temp 97.9 F 01/15/19 04:00 Pulse 56 L 01/15/19 04:00 Resp 18 01/15/19 04:00 BP 145/79 01/15/19 04:00 Pulse Ox 94 L 01/15/19 04:00 Intake & Output 01/14/19 01/15/19 01/15/19 18:59 06:59 18:59 Weight 98.838 kg Other: Voiding Method Toilet Toilet # Voids 1 - Constitutional General appearance: Present: no acute distress - Respiratory Respiratory: bilateral: CTA - Cardiovascular Rhythm: regular Heart sounds: normal: S1, S2 - Labs CBC & Chem 7: 01/15/19 06:15 01/15/19 06:15 Labs: Abnormal Lab Results - Last 24 Hours (Table) 01/14/19 01/14/19 01/14/19 Range/Units 11:17 14:48 14:51 Sodium 136 L (137-145) mmol/L Creatinine (0.66-1.25) mg/dL Glucose 406 H (74-99) mg/dL POC Glucose (mg/dL) 104 H 108 H (75-99) mg/dL ALT 16 L (21-72) U/L 01/14/19 01/14/19 01/15/19 Range/Units 16:46 20:40 06:15 Sodium (137-145) mmol/L Creatinine 0.59 L (0.66-1.25) mg/dL Glucose (74-99) mg/dL POC Glucose (mg/dL) 180 H 198 H (75-99) mg/dL ALT 17 L (21-72) U/L Assessment and Plan Assessment: Assessment #1 atypical chest pain #2 severe CAD and status post revascularization #3 hypertension #4 dyslipidemia Plan #1 acute coronary event was ruled out #2 I recommended getting the patient up and around and if he is asymptomatic he might be able to be discharged home. Thank you for allowing us participate in his care
[2019-01-15] MEDS: INSULIN DETEMIR (LEVEMIR) 100 UNIT/ML SYR SQ SCH (08:29)
[2019-01-15] MEDS: INSULIN ASPART (NovoLOG) 100 UNIT/ML VIAL SQ SCH (08:30)
[2019-01-15] MEDS ORDERED: ASPIRIN 325 MG TAB PO SCH (09:00)
[2019-01-15] MEDS ORDERED: ISOSORBIDE MONONITRATE ER 60 MG TAB.ER.24H PO SCH (09:00)
[2019-01-15] MEDS ORDERED: CLOPIDOGREL 75 MG TAB PO SCH (09:00)
[2019-01-15] MEDS ORDERED: ASPIRIN 81 MG PO SCH (09:00)
[2019-01-15 09:44] VITALS: TEMP 98.5
[2019-01-15 11:14] LABS: Glucose,Whole Blood 278 mg/dL (75-99)
[2019-01-15] MEDS ORDERED: INSULIN ASPART (NovoLOG) 100 UNIT/ML VIAL SQ SCH (12:30)
[2019-01-15 13:28] VITALS: BP 131/73; PULSE 54; RESP 16
--- NOTE | 2019-01-15 14:10 | P.DS ---
Providers Date of admission: 01/14/19 12:32 Expected date of discharge: 01/15/19 Attending physician: Radha Metz Consults: 01/14/19 12:32 Consult Physician Urgent Consulting Provider: Sneha Lee Consult Reason/Comments: Upper back discomfort, cardiac evaluation Do you want consulting provider notified?: Yes Primary care physician: Eva Awan Hospital Course: Discharge diagnosis 1. Back pain rule out cardiac etiology. Initial troponin negative. D-dimer 0.19. Chest x-ray completed showing no acute cardiopulmonary process. Age-indeterminate compression deformity of the upper lumbar spine. Partial intrathoracic stomach versus large hiatal hernia. Cardiology services have been consulted. serial troponins ordered. Troponins negative 3. Patient was evaluated by Dr. Romero. Patient may be discharged home and follow-up outpatient for further evaluation. Aspirin decreased to 81 mg per cardiology. 2. Coronary artery disease with coronary artery bypass graft surgery in 1999. Most recent cardiac stents in November 2018 to the left circumflex. Patient maintained on statin and Plavix 3. History of diabetes mellitus type 2. Patient has continuous glucose monitoring device in place. Initial blood sugar 406 but this was prior to menstruation a medication per patient blood sugars have been improving home meds resumed. 4. Hyperlipidemia. Patient maintained on statin 5. History of essential hypertension 6. L1 compression fracture. Patient does report history of back issues in the past and she followed with orthopedic doctor. Patient unsure of details. Lumbar x-ray completed showing anterior wedge compression fracture L1 to indeterminate age. Degenerative disc disease and mild osteopenia. Advised patient he should follow-up with orthopedic services outpatient for further evaluation. Also recommend bone density test per PCP Hospital course This is a 68-year-old male patient of Dr. Dhillon. Patient presented with complaint of back pain. Patient reports that the back pain occurred while lying in bed and lasted approximately 12 minutes. Patient had 2 episodes. Patient r eports that the pain felt similar to when he required open heart surgery in 1999. Patient denies any associated nausea vomiting or diaphoresis. Additional medical history includes coronary artery bypass graft surgery in 1999, 2 cardiac stents in November 2018 in which she has been compliant with his Plavix, diabetes mellitus type 2, essential hypertension, hyperlipidemia and musculoskeletal disorder. Chest x-ray completed showing no acute cardiopulmonary process. Age indeterminate compression deformity of the upper lumbar spine. Partial intrathoracic stomach versus large hiatal hernia. EKG completed showing normal sinus rhythm. Possible inferior infarct age undetermined. Initial troponin negative. Initial blood sugar 406 the patient reports that this was prior to taking his medication. Patient denies any recent illness denies any recent injury or heavy lifting. At this time cardiology services have been consulted. Will order x-ray of lumbar spine. Patient denies chest pain or shortness breath. Patient denies nausea vomiting or diarrhea. Patient denies any urinary burning or frequency. On 01/15/2019 patient's alert and oriented 3. Patient was evaluated by cardiology services patient has cleared for discharge. Acute coronary event has been ruled out. Troponins negative 3. Patient will follow-up outpatient with cardiology services for further management. Lumbar spine x-ray completed showing anterior wedge compression fracture of L1 of indeterminate age. Degenerative disc disease mild osteopenia. Advised patient he should follow-up with orthopedic services for further evaluation. Also recommend bone density test per PCP. Patient denies chest pain or shortness breath. Patient denies nausea vomiting or diarrhea. Patient denies any urinary burning or frequency. I performed an examination of the patient and discussed their management with the Nurse Practitioner. I have reviewed the Nurse Practitioner's notes and agree with the documented findings and plan of care Patient Condition at Discharge: Stable Plan - Discharge Summary Discharge Rx Participant: No New Discharge Prescriptions: New Aspirin 81 mg PO DAILY 30 Days #30 chew Continue Isosorbide Mononitrate ER [Imdur] 60 mg PO QAM Insulin Glargine [Lantus] 25 unit SQ BID Enalapril [Vasotec] 10 mg PO HS Atorvastatin [Lipitor] 40 mg PO HS Metoprolol Tartrate [Lopressor] 50 mg PO HS INSULIN ASPART (NovoLOG) [NovoLOG (formulary)] 20 unit SQ BID-W/MEALS Clopidogrel [Plavix] 75 mg PO DAILY #90 tab Discontinued Aspirin 325 mg PO HS Discharge Medication List Atorvastatin [Lipitor] 40 mg PO HS 02/08/17 [History] Enalapril [Vasotec] 10 mg PO HS 02/08/17 [History] Insulin Glargine [Lantus] 25 unit SQ BID 02/08/17 [History] Isosorbide Mononitrate ER [Imdur] 60 mg PO QAM 02/08/17 [History] Metoprolol Tartrate [Lopressor] 50 mg PO HS 02/08/17 [History] INSULIN ASPART (NovoLOG) [NovoLOG (formulary)] 20 unit SQ BID-W/MEALS 03/01/17 [History] Clopidogrel [Plavix] 75 mg PO DAILY #90 tab 11/16/18 [Rx] Aspirin 81 mg PO DAILY 30 Days #30 chew 01/15/19 [Rx] Follow up Appointment(s)/Referral(s): Phoenix Araujo MD [STAFF PHYSICIAN] - 02/03/19 3:00 pm (follow up with Dr. Araujo post hospitalization for chest pain) Eva Awan MD [Primary Care Provider] - 1-2 days Ash Rivera DO [Doctor of Osteopathic Medicine] - 1 Week Activity/Diet/Wound Care/Special Instructions: Patient to follow with Dr. Rivera for anterior wedge compression fracture of L1 Recommend bone density test outpatient per PCP Discharge Disposition: HOME SELF-CARE
== END 2019-01-15 15:23 | disposition home or self-care (01) ==
LOC: EC 10:50 → 1SOBS 12:32
PROVIDERS: ADMIT Internal Medicine; ATTEND Internal Medicine
DX: M54.6 Pain in thoracic spine (principal); S32.010A Wedge compression fracture of first lumbar vertebra, initial encounter for closed fracture; I25.10 Atherosclerotic heart disease of native coronary artery without angina pectoris; I25.810 Atherosclerosis of coronary artery bypass graft(s) without angina pectoris; Z95.1 Presence of aortocoronary bypass graft; Z95.5 Presence of coronary angioplasty implant and graft; E11.9 Type 2 diabetes mellitus without complications; E78.5 Hyperlipidemia, unspecified; I10 Essential (primary) hypertension; I25.2 Old myocardial infarction; M51.36 Other intervertebral disc degeneration, lumbar region; M85.88 Other specified disorders of bone density and structure, other site; Z79.02 Long term (current) use of antithrombotics/antiplatelets; Z79.899 Other long term (current) drug therapy; R07.89 Other chest pain; Z79.82 Long term (current) use of aspirin; Z79.4 Long term (current) use of insulin
CPT/HCPCS: 99284; 36415; 93005; 85379; 80061; 80053 ×2; 82550; 83735; 84484; 85025 ×2; 85610; 85730; 72100; 71046; G0378 ×2

== ENCOUNTER → 2019-02-04 | Outpatient (CLI) | payer MEDICARE ==
--- NOTE | 2019-02-05 12:34 | BD ---
EXAMINATION TYPE: Axial Bone Density DATE OF EXAM: 02/04/2019 COMPARISON: NONE CLINICAL HISTORY: Height: 71.5 IN Weight: 213 LBS FRAX RISK QUESTIONS: History of Fracture in Adulthood: YES LT SHOULDER AGE 66 Secondary Osteoporosis: 1. Type 1 Diabetes: YES RISK FACTORS HISTORY OF: Diet low in dairy products/other sources of calcium: YES MEDICATIONS: Additional Medications: HEART MEDS, DIABETES MEDS, CHOLESTEROL MEDS, BLOOD PRESSURE MEDS EXAM MEASUREMENTS: Bone mineral densitometry was performed using the [employer]. Bone mineral density as measured about the Lumbar spine is: ----- L1-L4(G/cm2): 1.061 T Score Values are as follows: ----- L2: -0.6 ----- L3: -0.9 ----- L4: -1.6 ----- L1-L4: -1.0 Bone mineral density BASELINE Bone mineral density about the R hip (g/cm2): 1.001 Bone mineral density about the L hip (g/cm2): 0.951 T Score values are as follows: -----R Neck: -0.3 -----L Neck: -0.6 -----R Total: 0.4 -----L Total: -0.2 Bone mineral density BASELINE IMPRESSION: No evidence for osteoporosis or osteopenia. NOTE: T-SCORE=SD OF THE YOUNG ADULT MEAN.
== END | disposition home or self-care (01) ==
LOC: RADBDWWP 15:51
PROVIDERS: ATTEND Family Medicine
DX: S32.010S Wedge compression fracture of first lumbar vertebra, sequela (principal); X58.XXXS Exposure to other specified factors, sequela
CPT/HCPCS: 77080

== ENCOUNTER → 2019-04-16 | Outpatient (CLI) | payer MEDICARE ==
[2019-04-16 08:41] LABS: African American GFR (CKD) >90 (>60 ml/min/1.73 sqM); Anion Gap 5 mmol/L; Blood Urea Nitrogen 15 mg/dL (9-20); Carbon Dioxide 32 mmol/L (22-30); Chloride 104 mmol/L (98-107); Non-African American GFR(CKD) >90 (>60 ml/min/1.73 sqM); Potassium 4.8 mmol/L (3.5-5.1); Sodium 141 mmol/L (137-145)
[2019-04-16 08:59] LABS: HCT 48.7 % (39.0-53.0); HGB 16.6 gm/dL (13.0-17.5); MCH 32.6 pg (25.0-35.0); MCV 95.8 fL (80.0-100.0); Mean Platelet Volume 7.2; Platelet Count 223 k/uL (150-450); RBC 5.08 m/uL (4.30-5.90); RDW 12.5 % (11.5-15.5); WBC 6.4 k/uL (3.8-10.6)
== END | disposition home or self-care (01) ==
LOC: LABPAT 08:10
PROVIDERS: ATTEND Internal Medicine Interventional Cardiology
DX: Z01.812 Encounter for preprocedural laboratory examination (principal); I25.710 Atherosclerosis of autologous vein coronary artery bypass graft(s) with unstable angina pectoris
CPT/HCPCS: 36415; 80051; 82565; 84520; 85027

== ENCOUNTER 2019-04-21 10:41 | Day surgery (SDC) | payer MEDICARE ==
[2019-04-18 10:30] VITALS: BMI 29.7
[~2019-04-21 10:41] MED LIST changes: +ASPIRIN 325 MG TAB PO ONE; -ASPIRIN 325 MG TAB PO STA; +ATORVASTATIN 80 MG TAB PO ONE; -ATORVASTATIN 80 MG TAB PO STA
[2019-04-21 11:11] LABS: Glucose,Whole Blood 170 mg/dL (75-99)
[2019-04-21] MEDS ORDERED: LIDOCAINE 1% INJ 10MG/ML (20 ML MDV) ONE (12:31)
[2019-04-21] MEDS ORDERED: MIDAZOLAM 2 MG/2 ML VIAL IV ONE (12:46)
[2019-04-21] MEDS ORDERED: LIDOCAINE 1% INJ 10MG/ML (20 ML MDV) SQ ONE (12:50)
[2019-04-21] MEDS ORDERED: fentaNYL (PF) 50 MCG/ML 2 ML AMP ONE (12:51)
[2019-04-21] MEDS ORDERED: fentaNYL (PF) 50 MCG/ML 2 ML AMP IV ONE (12:52)
[2019-04-21] MEDS ORDERED: NITROGLYCERIN 1000MCG/10ML SYRINGE INTRACORON ONE (12:57)
[2019-04-21] MEDS ORDERED: niCARdipine 25 MG/10 ML VIAL ONE (13:04)
[2019-04-21] MEDS ORDERED: BIVALIRUDIN BOLUS 250 MG/50 ML IV ONE (13:06)
[2019-04-21] MEDS ORDERED: BIVALIRUDIN 250 MG in SODIUM CHLORIDE 0.9% 50 ML IV ONE (13:07)
[2019-04-21] MEDS ORDERED: CLOPIDOGREL 75 MG TAB ONE (13:08)
[2019-04-21] MEDS: niCARdipine Syringe (1,000 mcg/10 mL) INTRACORON ONE ×2 (13:08→13:13)
[2019-04-21] MEDS ORDERED: CLOPIDOGREL 75 MG TAB PO ONE (13:09)
[2019-04-21] MEDS ORDERED: IOPAMIDOL-370 125ML BTL INJ ONE (13:17)
[2019-04-21] MEDS ORDERED: NITROGLYCERIN SL TABS 0.4 MG TAB SUBLINGUAL PRN ×2 (13:22→13:23)
[2019-04-21] MEDS ORDERED: IBUPROFEN 800 MG TAB PO PRN (13:22)
[2019-04-21] MEDS ORDERED: ZOLPIDEM 5 MG TAB PO PRN (13:23)
[2019-04-21] MEDS ORDERED: ATROPINE SULFATE 0.1 MG/ML 10ML SYRINGE IV PRN (13:23)
[2019-04-21] MEDS ORDERED: MAG HYDROX/AL HYDROX/SIMETH 30 ML CUP PO PRN (13:23)
[2019-04-21] MEDS ORDERED: RX INFO: IV CONTRAST WAS GIVEN 1 EACH MISC MISCELLANE PRN (13:23)
[2019-04-21] MEDS ORDERED: SODIUM CHLORIDE 0.9% 1,000 ML IV SCH (13:30)
[2019-04-21 13:49] LABS: Glucose,Whole Blood 181 mg/dL (75-99)
[2019-04-21] MEDS: INSULIN ASPART (NovoLOG) 100 UNIT/ML VIAL SQ SCH (18:14)
[2019-04-21 18:16] LABS: Glucose,Whole Blood 283 mg/dL (75-99)
[2019-04-21] MEDS ORDERED: LISINOPRIL 20 MG TAB PO SCH (21:00)
[2019-04-21] MEDS ORDERED: INSULIN DETEMIR (LEVEMIR) 100 UNIT/ML SYR SQ SCH (21:00)
[2019-04-21] MEDS ORDERED: METOPROLOL TARTRATE 50 MG TAB PO SCH (21:00)
[2019-04-21] MEDS ORDERED: ATORVASTATIN 40 MG TAB PO SCH (21:00)
[2019-04-21] MEDS: RANOLAZINE 500 MG TAB.ER.12H PO SCH (21:50)
[2019-04-22 04:28] VITALS: TEMP 98.8
[2019-04-22] MEDS ORDERED: INSULIN DETEMIR (LEVEMIR) 100 UNIT/ML SYR SQ SCH ×2 (04:59)
[2019-04-22 06:32] LABS: Basophils % (A) 1 %; Eosinophils # (A) 0.3 k/uL (0-0.7); Eosinophils % (A) 4 %; HCT 47.2 % (39.0-53.0); HGB 15.5 gm/dL (13.0-17.5); Lymphocytes # (A) 1.4 k/uL (1.0-4.8); Lymphocytes % (A) 24 %; MCH 31.7 pg (25.0-35.0); MCHC 32.8 g/dL (31.0-37.0); MCV 96.6 fL (80.0-100.0); Mean Platelet Volume 7.5; Monocytes # (A) 0.5 k/uL (0-1.0); Monocytes % (A) 8 %; Neutrophils # (A) 3.6 k/uL (1.3-7.7); Neutrophils % (A) 61 %; Platelet Count 188 k/uL (150-450); RBC 4.89 m/uL (4.30-5.90); RDW 12.5 % (11.5-15.5); WBC 5.9 k/uL (3.8-10.6)
[2019-04-22 06:38] LABS: African American GFR (CKD) >90 (>60 ml/min/1.73 sqM); Anion Gap 5 mmol/L; Blood Urea Nitrogen 15 mg/dL (9-20); Calcium 9.1 mg/dL (8.4-10.2); Carbon Dioxide 29 mmol/L (22-30); Chloride 103 mmol/L (98-107); Glucose 197 mg/dL (74-99); Non-African American GFR(CKD) >90 (>60 ml/min/1.73 sqM); Potassium 4.9 mmol/L (3.5-5.1); Sodium 137 mmol/L (137-145)
[2019-04-22 06:54] LABS: Glucose,Whole Blood 200 mg/dL (75-99)
[2019-04-22] MEDS: INSULIN ASPART (NovoLOG) 100 UNIT/ML VIAL SQ SCH (06:56)
[2019-04-22] MEDS: RANOLAZINE 500 MG TAB.ER.12H PO SCH (07:50)
--- NOTE | 2019-04-22 07:52 | CC ---
CARDIAC CATHETERIZATION REPORT CARDIAC CATHETERIZATION AND PERCUTANEOUS CORONARY INTERVENTION: DATE OF SERVICE: April 21, 2019 PERFORMING PHYSICIAN: Phoenix Araujo MD. PROCEDURE PERFORMED: 1. Selective left and right coronary angiogram. 2. SANCHEZ to LAD angiogram. 3. SVG to diagonal angiogram. 4. Successful stenting of the SVG to diagonal using 2.5 x 23 mm Xience EMANI with an excellent angiographic result and reduction of stenosis from 99% to 0%. INDICATION: This is a very pleasant 68-year-old gentleman with history of coronary artery disease and prior coronary artery bypass grafting as well as stenting, who continues to have chest discomfort concerning for angina. Because of that, heart catheterization was advised. APPROACH: Right common femoral artery. COMPLICATION: None. LEVEL OF SEDATION: Moderate with sedation length of 30 minutes. PROCEDURE DESCRIPTION: After obtaining an informed consent, the patient was brought to cardiac ear mold laboratory technician. The right common femoral artery was cannulated using micropuncture technique. The micropuncture wire passed easily then I placed a 6-Iraqi sheath 11 cm at the right common femoral artery. I did selective left and right coronary angiogram using JL4 and JR4 catheters. SANCHEZ to LAD angiogram and SVG to diagonal angiogram performed using the JR4 catheter. After that, I did leave heart catheterization using 6-Iraqi pigtail catheter. Subsequently I did intervene on SVG to diagonal. Please see a separate paragraph for that. SELECTIVE CORONARY ANGIOGRAM: 1. The left main is a large caliber vessel with mild disease only. It bifurcates into occluded LAD and left circumflex coronary artery. 2. The left circumflex is stented and the stent is patent. 3. The LAD is occluded in the proximal portion. 4. The right coronary artery is a large caliber vessel and it is a dominant vessel. The RCA is stented in the midportion and the stent is patent. CORONARY BYPASSES ANGIOGRAM: 1. The SANCHEZ to LAD is patent. 2. The SVG to diagonal has a critical lesion appeared to be in the range of 99.9%. HEMODYNAMICS: The LVEDP was 8 to 10 mmHg without significant gradient across the aortic valve. PCI OF THE SVG TO DIAGONAL: Anticoagulation was initiated using Angiomax with bolus and drip per protocol. Subsequently I did engage the SVG to diagonal using JR4 guide. Wire it using a whisper wire. After that I did direct stenting of the lesion using 2.5 x 23 mm Xience EMANI where the stent was positioned under fluoroscopy guidance and deployed under 14 atmospheres for 20 seconds. The following angiogram showed excellent angiographic results with reduction of stenosis from 99% to 0% and without any phenomena. CONCLUSION: 1. Patent stent in the left main to left circumflex. 2. Occluded left anterior descending artery. The SANCHEZ to LAD is patent. 3. Patent stent in the right coronary artery. 4. Critical disease involving the SVG to diagonal. 5. Successful stenting of the SVG to diagonal as described above. POSTPROCEDURE MANAGEMENT: 1. Dual antiplatelet therapy. 2. Risk factors modifications. 3. Follow up with the patient. MMODL / IJN: [id number] /
--- NOTE | 2019-04-22 07:57 | DS ---
DISCHARGE SUMMARY ADMISSION DATE: April 21, 2019 DISCHARGE DATE: April 22, 2019 BRIEF HISTORY: This is a very pleasant 68-year-old gentleman with history of coronary artery disease and prior coronary artery bypass grafting and stenting, who was experiencing chest discomfort with exertion and underwent yesterday successful stenting of the SVG to diagonal with an excellent angiographic results and without any complication. The patient was seen this morning. He is doing good from the cardiovascular standpoint of view. The patient is going to be discharged home on dual anti-platelet therapy and I will follow up with the patient next week in the office. MMDIANE / MARCELINA: [id number] /
[2019-04-22 08:01] VITALS: BP 128/74; PULSE 63; RESP 20
[2019-04-22] MEDS ORDERED: ASPIRIN 81 MG PO SCH (09:00)
[2019-04-22] MEDS ORDERED: ISOSORBIDE MONONITRATE ER 60 MG TAB.ER.24H PO SCH (09:00)
[2019-04-22] MEDS ORDERED: CLOPIDOGREL 75 MG TAB PO SCH (09:00)
== END 2019-04-22 08:44 | disposition home or self-care (01) ==
LOC: CATHCVL 10:41 → 3SCARD 13:23 → CATHCVL 04-22 08:44
PROVIDERS: ATTEND Internal Medicine Interventional Cardiology
DX: I25.710 Atherosclerosis of autologous vein coronary artery bypass graft(s) with unstable angina pectoris (principal); I25.110 Atherosclerotic heart disease of native coronary artery with unstable angina pectoris; I10 Essential (primary) hypertension; E78.00 Pure hypercholesterolemia, unspecified; E78.5 Hyperlipidemia, unspecified; E11.9 Type 2 diabetes mellitus without complications; Z95.1 Presence of aortocoronary bypass graft; Z79.4 Long term (current) use of insulin; Z79.02 Long term (current) use of antithrombotics/antiplatelets; Z79.82 Long term (current) use of aspirin; Z79.899 Other long term (current) drug therapy; Z82.49 Family history of ischemic heart disease and other diseases of the circulatory system
CPT/HCPCS: 93459; 80048; 85025; C9604; C1760; C1769 ×3; C1887; C1894; C1874; J2250; J2001; J3010; J0583; Q9967

== ENCOUNTER → 2019-07-07 | Outpatient (CLI) | payer MEDICARE ==
[2019-07-07 16:45] LABS: African American GFR (CKD) 101.4 (60.0-200.0); Albumin 4.2 g/dL (3.80-4.90); Albumin/Globulin Ratio 2.1 (1.60-3.17); Anion Gap 8.1 mmol/L (4.00-12.00); BUN/Creat Ratio 15.56 Ratio (12.00-20.00); Calcium 9.2 mg/dL (8.7-10.3); Carbon Dioxide 26.9 mmol/L (21.6-31.8); Chol/HDL Ratio 2.5; LDL Cholesterol,Calculated 72.8 mg/dL (0.0-131.0); Non-African American GFR(CKD) 87.5 (60.0-200.0); Potassium 5.1 mmol/L (3.5-5.5); Total Protein 6.2 g/dL (6.2-8.2); VLDL Calculation 14.2 mg/dL (5.00-40.00)
[2019-07-07 16:58] LABS: Urine Creatinine 131.4 mg/dL
[2019-07-07 19:09] LABS: Hemoglobin A1C 7.3 % (4.0-6.0)
== END | disposition home or self-care (01) ==
LOC: LABWHC1 08:57
PROVIDERS: ATTEND Internal Medicine Endocrinology, Diabetes & Metabolism
DX: E10.65 Type 1 diabetes mellitus with hyperglycemia (principal)
CPT/HCPCS: 36415; 80053; 80061; 82043; 82570; 83036; 84403; 84443

== ENCOUNTER → 2019-11-07 | Outpatient (CLI) | payer MEDICARE ==
--- NOTE | 2019-11-07 10:04 | XR ---
EXAMINATION TYPE: XR foot complete bilateral DATE OF EXAM: 11/07/2019 COMPARISON: NONE HISTORY: Pain TECHNIQUE: Three views are submitted. FINDINGS: The osseous structures are intact. There is no acute fracture or dislocation. Severe arthropathy f irst MTP joint with diffuse osteopenia. Arthropathy of the DIP joints noted. Chronic deformity involv ing the distal fifth metatarsal. Calcaneal spurring. IMPRESSION: 1. Severe first MTP arthropathy. 2. Calcaneal spurs.
== END | disposition home or self-care (01) ==
LOC: RADXRMAIN 09:44
PROVIDERS: ATTEND Family Medicine
DX: M12.872 Other specific arthropathies, not elsewhere classified, left ankle and foot (principal)

== ENCOUNTER 2020-01-28 18:43 | Observation (INO) | payer MEDICARE ==
[2020-01-28] MEDS ORDERED: ASPIRIN 81 MG PO STA (19:22)
--- NOTE | 2020-01-28 19:24 | ED ---
General Adult HPI - General Chief complaint: Chest Pain Stated complaint: Chest pain Time Seen by Provider: 01/28/20 18:56 Source: patient, RN notes reviewed Mode of arrival: ambulatory Limitations: no limitations - History of Present Illness Initial comments: Patient is a pleasant 69-year-old male presenting to the emergency Department with complaints of chest discomfort. Onset of symptoms was yesterday. Patient has had several episodes, patient is currently symptom-free since arrival to the emergency department. Discomfort feels like mild pressure left chest without radiation. No associated dyspnea, nausea, or diaphoresis. No leg pain or leg swelling. Patient does have cardiac history however those symptoms did not feel similar to this. - Related Data Home Medications Medication Instructions Recorded Confirmed Atorvastatin [Lipitor] 40 mg PO HS 02/08/17 04/21/19 Enalapril [Vasotec] 10 mg PO HS 02/08/17 04/21/19 Insulin Glargine [Lantus] 25 unit SQ BID 02/08/17 04/21/19 Isosorbide Mononitrate ER [Imdur] 60 mg PO QAM 02/08/17 04/21/19 Metoprolol Tartrate [Lopressor] 50 mg PO HS 02/08/17 04/21/19 INSULIN ASPART (NovoLOG) [NovoLOG 20 unit SQ BID-W/MEALS 03/01/17 04/21/19 (formulary)] Nitroglycerin Sl Tabs [Nitrostat] 0.4 mg SUBLINGUAL Q5M PRN 04/18/19 04/21/19 Ranolazine [Ranexa] 500 mg PO BID 04/18/19 04/21/19 Ibuprofen [Motrin] 800 mg PO Q8HR PRN 04/21/19 04/21/19 Previous Rx's Medication Instructions Recorded Clopidogrel [Plavix] 75 mg PO DAILY #90 tab 11/16/18 Aspirin 81 mg PO DAILY 30 Days #30 chew 01/15/19 Allergies Allergy/AdvReac Type Severity Reaction Status Date / Time No Known Allergies Allergy Verified 01/28/20 18:47 Review of Systems ROS Statement: Those systems with pertinent positive or pertinent negative responses have been documented in the HPI. ROS Other: All systems not noted in ROS Statement are negative. Constitutional: Denies: fever Eyes: Denies: eye pain ENT: Denies: ear pain Respiratory: Denies: cough, dyspnea Cardiovascular: Reports: chest pain Endocrine: Denies: fatigue Gastrointestinal: Denies: abdominal pain Genitourinary: Denies: dysuria Musculoskeletal: Denies: back pain Skin: Denies: rash Neurological: Denies: weakness Past Medical History Past Medical History: Coronary Artery Disease (CAD), Diabetes Mellitus, Hyperlipidemia, Hypertension, Musculoskeletal Disorder Additional Past Medical History / Comment(s): shoulder injury in May History of Any Multi-Drug Resistant Organisms: None Reported Past Surgical History: Coronary Bypass/CABG, Heart Catheterization, Heart Catheterization With Stent Additional Past Surgical History / Comment(s): cabg x4 2000 Past Anesthesia/Blood Transfusion Reactions: No Reported Reaction Date of Last Stent Placement:: 03/06/17 Past Psychological History: No Psychological Hx Reported Smoking Status: Never smoker Past Alcohol Use History: None Reported Past Drug Use History: None Reported - Past Family History Mother Family Medical History: Cancer Additional Family Medical History / Comment(s): skin Father Family Medical History: Coronary Artery Disease (CAD) General Exam Limitations: no limitations General appearance: alert, in no apparent distress Head exam: Present: normocephalic Eye exam: Present: normal appearance Neck exam: Present: normal inspection Respiratory exam: Present: normal lung sounds bilaterally. Absent: chest wall tenderness Cardiovascular Exam: Present: regular rate, normal rhythm Expanded Peripheral pulses: 2+: Radial (R), Radial (L), Dorsalis Pedis (R), Dorsalis Pedis (L) GI/Abdominal exam: Present: soft. Absent: tenderness Extremities exam: Present: normal inspection. Absent: pedal edema, calf tenderness Neurological exam: Present: alert Psychiatric exam: Present: normal affect, normal mood Skin exam: Present: normal color Course Vital Signs 01/28/20 18:44 Temperature 98.6 F Pulse Rate 80 Respiratory 18 Rate Blood Pressure 180/95 O2 Sat by Pulse 96 Oximetry EKG Findings - EKG Comments: EKG Findings:: Normal sinus rhythm 72. OH 140. QRS 102. QT 400. QTc 438. Normal axis. Normal QRS. No acute ST change. Medical Decision Making - Medical Decision Making Patient reevaluated and updated. Patient resting comfortably in bed, symptom- free. [facility] has been paged covering for Dr. Dhillon for admission. Vincent was discussed with Dr. Iyer, who will admit. - Lab Data Result diagrams: 01/28/20 19:25 01/28/20 19:25 Lab Results 01/28/20 01/28/20 01/28/20 Range/Units 19:25 19:25 19:25 WBC 7.4 (3.8-10.6) k/uL RBC 4.85 (4.30-5.90) m/uL Hgb 15.4 (13.0-17.5) gm/dL Hct 46.6 (39.0-53.0) % MCV 96.2 (80.0-100.0) fL MCH 31.8 (25.0-35.0) pg MCHC 33.0 (31.0-37.0) g/dL RDW 12.2 (11.5-15.5) % Plt Count 205 (150-450) k/uL Neutrophils % 61 % Lymphocytes % 27 % Monocytes % 8 % Eosinophils % 2 % Basophils % 0 % Neutrophils # 4.5 (1.3-7.7) k/uL Lymphocytes # 2.0 (1.0-4.8) k/uL Monocytes # 0.6 (0-1.0) k/uL Eosinophils # 0.1 (0-0.7) k/uL Basophils # 0.0 (0-0.2) k/uL PT 10.5 (9.0-12.0) sec INR 1.0 (<1.2) APTT 24.1 (22.0-30.0) sec Sodium 136 L (137-145) mmol/L Potassium 4.8 (3.5-5.1) mmol/L Chloride 104 (98-107) mmol/L Carbon Dioxide 26 (22-30) mmol/L Anion Gap 6 mmol/L BUN 23 H (9-20) mg/dL Creatinine 0.84 (0.66-1.25) mg/dL Est GFR (CKD-EPI)AfAm >90 (>60 ml/min/1.73 sqM) Est GFR (CKD-EPI)NonAf 89 (>60 ml/min/1.73 sqM) Glucose 170 H (74-99) mg/dL Calcium 9.3 (8.4-10.2) mg/dL Magnesium 2.0 (1.6-2.3) mg/dL Total Bilirubin 0.9 (0.2-1.3) mg/dL AST 25 (17-59) U/L ALT 16 (4-49) U/L Alkaline Phosphatase 62 (38-126) U/L Troponin I (0.000-0.034) ng/mL Total Protein 6.6 (6.3-8.2) g/dL Albumin 4.1 (3.5-5.0) g/dL 01/28/20 Range/Units 19:25 WBC (3.8-10.6) k/uL RBC (4.30-5.90) m/uL Hgb (13.0-17.5) gm/dL Hct (39.0-53.0) % MCV (80.0-100.0) fL MCH (25.0-35.0) pg MCHC (31.0-37.0) g/dL RDW (11.5-15.5) % Plt Count (150-450) k/uL Neutrophils % % Lymphocytes % % Monocytes % % Eosinophils % % Basophils % % Neutrophils # (1.3-7.7) k/uL Lymphocytes # (1.0-4.8) k/uL Monocytes # (0-1.0) k/uL Eosinophils # (0-0.7) k/uL Basophils # (0-0.2) k/uL PT (9.0-12.0) sec INR (<1.2) APTT (22.0-30.0) sec Sodium (137-145) mmol/L Potassium (3.5-5.1) mmol/L Chloride (98-107) mmol/L Carbon Dioxide (22-30) mmol/L Anion Gap mmol/L BUN (9-20) mg/dL Creatinine (0.66-1.25) mg/dL Est GFR (CKD-EPI)AfAm (>60 ml/min/1.73 sqM) Est GFR (CKD-EPI)NonAf (>60 ml/min/1.73 sqM) Glucose (74-99) mg/dL Calcium (8.4-10.2) mg/dL Magnesium (1.6-2.3) mg/dL Total Bilirubin (0.2-1.3) mg/dL AST (17-59) U/L ALT (4-49) U/L Alkaline Phosphatase (38-126) U/L Troponin I <0.012 (0.000-0.034) ng/mL Total Protein (6.3-8.2) g/dL Albumin (3.5-5.0) g/dL - Radiology Data Radiology results: image reviewed Disposition Clinical Impression: Chest pain Disposition: ADMITTED IP TO THIS HOSP Is patient prescribed a controlled substance at d/c from ED?: No Decision Time: 20:33
[2020-01-28 19:38] LABS: Basophils % (A) 0 %; Eosinophils # (A) 0.1 k/uL (0-0.7); Eosinophils % (A) 2 %; HCT 46.6 % (39.0-53.0); HGB 15.4 gm/dL (13.0-17.5); Lymphocytes % (A) 27 %; MCH 31.8 pg (25.0-35.0); MCV 96.2 fL (80.0-100.0); Mean Platelet Volume 7.5; Monocytes # (A) 0.6 k/uL (0-1.0); Monocytes % (A) 8 %; Neutrophils # (A) 4.5 k/uL (1.3-7.7); Neutrophils % (A) 61 %; Platelet Count 205 k/uL (150-450); RBC 4.85 m/uL (4.30-5.90); RDW 12.2 % (11.5-15.5); WBC 7.4 k/uL (3.8-10.6)
[2020-01-28 19:55] LABS: ALT 16 U/L (4-49); AST 25 U/L (17-59); African American GFR (CKD) >90 (>60 ml/min/1.73 sqM); Albumin 4.1 g/dL (3.5-5.0); Alkaline Phosphatase 62 U/L (38-126); Anion Gap 6 mmol/L; Blood Urea Nitrogen 23 mg/dL (9-20); Calcium 9.3 mg/dL (8.4-10.2); Carbon Dioxide 26 mmol/L (22-30); Chloride 104 mmol/L (98-107); Glucose 170 mg/dL (74-99); Non-African American GFR(CKD) 89 (>60 ml/min/1.73 sqM); Potassium 4.8 mmol/L (3.5-5.1); Sodium 136 mmol/L (137-145); Total Bilirubin 0.9 mg/dL (0.2-1.3); Total Protein 6.6 g/dL (6.3-8.2)
[2020-01-28 20:16] LABS: Partial Thromboplastin Time 24.1 sec (22.0-30.0); Prothrombin Time 10.5 sec (9.0-12.0)
[2020-01-28] MEDS ORDERED: NITROGLYCERIN SL TABS 0.4 MG TAB SUBLINGUAL PRN (20:33)
[2020-01-28] MEDS: NITROGLYCERIN OINT 1 INCH/GM PACKET TOPICAL SCH (21:00)
--- NOTE | 2020-01-28 21:15 | XR ---
EXAMINATION TYPE: XR chest 2V DATE OF EXAM: 01/28/2020 COMPARISON: 01/14/2019 INDICATION: Intermittent chest pain TECHNIQUE: Frontal and lateral views of the chest are obtained. FINDINGS: The heart size is mild the prominent. The pulmonary vasculature is normal. The lungs are clear. Large hiatal hernia with an air-fluid level is present. Sternotomy wires are pr esent. IMPRESSION: 1. Large hiatal hernia. 2. Mild cardiomegaly
[2020-01-28] MEDS ORDERED: ATORVASTATIN 80 MG TAB PO SCH (22:15)
[2020-01-28] MEDS ORDERED: METOPROLOL TARTRATE 50 MG TAB PO SCH (22:15)
[2020-01-28] MEDS ORDERED: lisinopriL 10 MG TAB PO SCH (22:15)
[2020-01-28] MEDS: RANOLAZINE 500 MG TAB.ER.12H PO SCH (22:19)
[2020-01-28 22:23] LABS: Glucose,Whole Blood 192 mg/dL (75-99)
[2020-01-28] MEDS: INSULIN DETEMIR (LEVEMIR) 100 UNIT/ML SYR SQ SCH (22:37)
--- NOTE | 2020-01-28 23:46 | P.HPIM ---
History of Present Illness H&P Date: 01/28/20 Chief Complaint: Chest pain 69-year-old male with CAD status post CABG and stents Patient comes in due to atypical chest pain he described episodes of left-sided chest pain since yesterday he claimed to be very mild 4 out of 10 in severity however he's been feeling run down for which she grew concerned that this could be from his heart he has strong history of coronary artery disease he said that yesterday he was doing some lawn work however he felt tired but that does not limit him from finishing his work pain currently is not related to activity it would come and go randomly. Not associated with any nausea vomiting not associated with any dizziness lightheadedness shortness of breath sweating or palpitations. In the ED EKG showed old Q waves in lead 3 otherwise normal sinus rhythm and initial troponin negative rest of his blood work was unremarkable patient denies any smoking and drug use or alcohol on regular basis He denies any fevers chills or upper respiratory infection symptoms he denies any body aches denies any sick contact His most recent stent was February 2019 Review of Systems Pertinent positives as noted in HPI. All other systems were reviewed and are negative Past Medical History Past Medical History: Coronary Artery Disease (CAD), Diabetes Mellitus, Hyperlipidemia, Hypertension, Musculoskeletal Disorder Additional Past Medical History / Comment(s): shoulder injury in May History of Any Multi-Drug Resistant Organisms: None Reported Past Surgical History: Coronary Bypass/CABG, Heart Catheterization, Heart Catheterization With Stent Additional Past Surgical History / Comment(s): cabg x4 2000 Past Anesthesia/Blood Transfusion Reactions: No Reported Reaction Date of Last Stent Placement:: 03/06/17 Past Psychological History: No Psychological Hx Reported Smoking Status: Never smoker Past Alcohol Use History: None Reported Past Drug Use History: None Reported - Past Family History Mother Family Medical History: Cancer Additional Family Medical History / Comment(s): skin Father Family Medical History: Coronary Artery Disease (CAD) Medications and Allergies Home Medications Medication Instructions Recorded Confirmed Type Enalapril [Vasotec] 10 mg PO HS 02/08/17 01/28/20 History Insulin Glargine [Lantus] 25 unit SQ BID 02/08/17 01/28/20 History Isosorbide Mononitrate ER [Imdur] 60 mg PO DAILY 02/08/17 01/28/20 History Metoprolol Tartrate [Lopressor] 50 mg PO HS 02/08/17 01/28/20 History INSULIN ASPART (NovoLOG) [NovoLOG See Protocol SQ ACHS 03/01/17 01/28/20 History (formulary)] Clopidogrel [Plavix] 75 mg PO DAILY #90 tab 11/16/18 01/28/20 Rx Ranolazine [Ranexa] 500 mg PO BID 04/18/19 01/28/20 History Ibuprofen [Motrin] 800 mg PO TID PRN 04/21/19 01/28/20 History Aspirin EC [Ecotrin Low Dose] 81 mg PO HS 01/28/20 01/28/20 History Atorvastatin [Lipitor] 80 mg PO HS 01/28/20 01/28/20 History Allergies Allergy/AdvReac Type Severity Reaction Status Date / Time No Known Allergies Allergy Verified 01/28/20 20:55 Physical Exam Vitals: Vital Signs Temp Pulse Resp BP Pulse Ox 01/28/20 21:01 64 18 137/80 97 01/28/20 18:44 98.6 F 80 18 180/95 96 Intake and Output 01/28/20 01/28/20 01/28/20 06:59 14:59 22:59 Other: Weight 98.43 kg Constitutional: No acute distress, conversant, pleasant Eyes: Anicteric sclerae, moist conjunctiva, Pupils equal round reactive to light ENMT: NC/AT Oropharynx clear, no erythema, or exudates Neck: Supple, FROM, no masses, or JVD No carotid bruits No thyromegaly Lungs: Clear to auscultation Clear to percussion Normal respiratory effort, no accessory muscle use Cardiovascular: Heart regular in rate and rhythm, No murmurs, gallops, or rubs No peripheral edema Abdominal: Soft Nontender, no guarding, rebound or rigidity Abdomen moving with respiration Normoactive bowel sounds No hepatomegaly, No splenomegaly No palpable mass No abdominal wall hernia noted Skin: Normal temperature, tone, texture, turgor No induration No subcutaneous nodules No rash, lesions No ulcers Extremities: No digital cyanosis No clubbing Pedal pulses intact and symmetrical Radial pulses intact and symmetrical No calf tenderness Psychiatric: Alert and oriented to person, place and time Appropriate affect fair judgement Neuro Muscles Strength 5/5 in all 4 extremities Sensation to light touch grossly present throughout Cranial nerves II-XII grossly intact No focal sensory deficits Lymphatics: no palpable cervical or supraclavicular , or inguinal lymph nodes Results CBC & Chem 7: 01/28/20 19:25 01/28/20 19:25 Labs: Abnormal Lab Results - Last 24 Hours (Table) 01/28/20 Range/Units 19:25 Sodium 136 L (137-145) mmol/L BUN 23 H (9-20) mg/dL Glucose 170 H (74-99) mg/dL Thrombosis Risk Factor Assmnt - Choose All That Apply Each Risk Factor Represents 2 Points: Age 61-74 years Thrombosis Risk Factor Assessment Total Risk Factor Score: 2 Thrombosis Risk Factor Assessment Level: Low Risk Assessment and Plan Assessment: Atypical chest pain rule out ACS Strong cardiac history status post CABG and stents Cardiology consult Trend troponins Aspirin statin and continue with Plavix Continue home heart meds, continue with Imdur, hold Ranexa tonight as patient received Nitropaste Cardiac monitoring Chronic conditions CAD Hypertension Hyperlipidemia Diabetes Resume home meds, insulin sliding scale, long-acting insulin home dose Continue statin and aspirin and Plavix CODE STATUS: Full code DVT prophylaxis: Heparin subcu 3 times a day Discussed with: Patient, ER, RN Anticipated length of stay less* than [address]: Home A total of 70 minutes was spent on the care of this complex patient more than 50 % of the time was spent in counseling and care coordination. ld
[2020-01-29] MEDS: NITROGLYCERIN OINT 1 INCH/GM PACKET TOPICAL SCH ×2 (00:41→05:26)
[2020-01-29] MEDS: HEPARIN SODIUM,PORCINE 5,000 UNIT/ML 1 ML VIAL SQ SCH ×3 (00:46→10:08)
[2020-01-29 01:33] LABS: Cholesterol 130 mg/dL (<200); HDL Cholesterol 56 mg/dL (40-60); LDL Cholesterol,Calculated 64 mg/dL (0-99); Triglycerides 51 mg/dL (<150)
[2020-01-29 03:28] VITALS: RESP 16
[2020-01-29 06:55] LABS: Glucose,Whole Blood 57 mg/dL (75-99)
[2020-01-29 07:11] LABS: Glucose,Whole Blood 77 mg/dL (75-99)
[2020-01-29] MEDS ORDERED: INSULIN ASPART (NovoLOG) 100 UNIT/ML VIAL SQ SCH (07:30)
[2020-01-29 08:39] VITALS: BP 129/76; PULSE 58; TEMP 98.2
[2020-01-29] MEDS ORDERED: ISOSORBIDE MONONITRATE ER 60 MG TAB.ER.24H PO SCH (09:00)
[2020-01-29] MEDS ORDERED: CLOPIDOGREL 75 MG TAB PO SCH (09:00)
[2020-01-29] MEDS ORDERED: ASPIRIN 325 MG TAB PO SCH (09:00)
[2020-01-29] MEDS: RANOLAZINE 500 MG TAB.ER.12H PO SCH (10:06)
[2020-01-29] MEDS: INSULIN DETEMIR (LEVEMIR) 100 UNIT/ML SYR SQ SCH (10:13)
--- NOTE | 2020-01-29 12:11 | P.DS ---
Providers Date of admission: 01/28/20 20:33 Expected date of discharge: 01/29/20 Attending physician: Ashu Long MD Consults: 01/28/20 20:33 Consult Physician Urgent Consulting Provider: Catrachita Haney Consult Reason/Comments: cp Do you want consulting provider notified?: Yes Primary care physician: [facility] Course: 69-year-old male with PMH of CAD post CABG and stents, diabetes mellitus, hypertension, dyslipidemia presented to the ED for chest pain. Given his strong cardiac history this prompted him to come to the ED. EKG showed old Q waves in lead 3 otherwise sinus rhythm. His troponins were negative 3. Cardiology evaluated the patient cleared the patient for discharge. Patient was seen and examined. No acute events overnight. He denies any chest pain, shortness breath or palpitations. No nausea or vomiting. No fever or chills. General: [non toxic], [no distress], [appears at stated age] Derm: [warm], [dry] Head: [atraumatic], [normocephalic], [symmetric] Eyes: [EOMI], [no lid lag], [anicteric sclera] Mouth: [no lip lesion], [mucus membranes moist] Cardiovascular: [S1S2 reg], [no murmur], [positive DP pulse bilateral], midline sternal scar Lungs: [CTA bilateral], [no rhonchi, no rales] , [no accessory muscle use] Abdominal: [soft], [ nontender to palpation], [no guarding], [no appreciable organomegaly] Ext: [no gross muscle atrophy], [no edema], [no contractures] Neuro: [no focal neuro deficits] Psych: [Alert], [oriented], [appropriate affect] Atypical chest pain CAD post CABG and stent Hypertension Dyslipidemia Diabetes mellitus Patient's troponins have been less than 0.0123 with EKG showing sinus rhythm with old Q waves in lead 3. Cardiology has evaluated the patient cleared the patient for discharge. He'll be continued on his home medication. Follow-up with PCP within 3 days of discharge. Follow-up with cardiology within 1 week. Pertinent Studies: Chest x-ray Patient Condition at Discharge: Stable Plan - Discharge Summary Discharge Rx Participant: No New Discharge Prescriptions: Continue Isosorbide Mononitrate ER [Imdur] 60 mg PO DAILY Insulin Glargine [Lantus] 25 unit SQ BID Enalapril [Vasotec] 10 mg PO HS Metoprolol Tartrate [Lopressor] 50 mg PO HS INSULIN ASPART (NovoLOG) [NovoLOG (formulary)] See Protocol SQ ACHS Clopidogrel [Plavix] 75 mg PO DAILY #90 tab Ranolazine [Ranexa] 500 mg PO BID Aspirin EC [Ecotrin Low Dose] 81 mg PO HS Atorvastatin [Lipitor] 80 mg PO HS Discontinued Ibuprofen [Motrin] 800 mg PO TID PRN PRN Reason: Pain Discharge Medication List Enalapril [Vasotec] 10 mg PO HS 02/08/17 [History] Insulin Glargine [Lantus] 25 unit SQ BID 02/08/17 [History] Isosorbide Mononitrate ER [Imdur] 60 mg PO DAILY 02/08/17 [History] Metoprolol Tartrate [Lopressor] 50 mg PO HS 02/08/17 [History] INSULIN ASPART (NovoLOG) [NovoLOG (formulary)] See Protocol SQ ACHS 03/01/17 [History] Clopidogrel [Plavix] 75 mg PO DAILY #90 tab 11/16/18 [Rx] Ranolazine [Ranexa] 500 mg PO BID 04/18/19 [History] Aspirin EC [Ecotrin Low Dose] 81 mg PO HS 01/28/20 [History] Atorvastatin [Lipitor] 80 mg PO HS 01/28/20 [History] Follow up Appointment(s)/Referral(s): Phoenix Araujo MD [STAFF PHYSICIAN] - 02/10/20 4:30 pm Eva Awan MD [Primary Care Provider] - 1-2 days Activity/Diet/Wound Care/Special Instructions: Diet: Cardiac, diabetic Follow-up with PCP within 3 days of discharge. Follow-up cardiology within 1 week of discharge. Take all medications as advised. Come back to the ED or call 911 for worsening chest pain, shortness breath, palpitations or dizziness. Discharge Disposition: HOME SELF-CARE
--- NOTE | 2020-01-29 14:25 | P.CRDCN ---
History of Present Illness History of present illness: HISTORY OF PRESENTING ILLNESS This is a pleasant 69-year-old male past medical history significant for coronary artery disease status post bypass grafting with SANCHEZ to LAD and SVG to diagonal with recent PCI of the SVG April 2019, SVG to ramus and SVG to OM1 in 1999, hypertension, diabetes mellitus and dyslipidemia. He follows in the office with her Skaff. We have been asked to see in consultation for chest pain. He states over the previous few days he has been doing increased outdoor activities around the house. After coming in from outdoors 2 days ago he noticed an achy sensation in the left precordial region. It was exacerbated by movement of his arm. It happened intermittently over the previous 2 days with no radiation to the arm, back, neck or jaw. He denies associated shortness of breath, dizziness, palpitations, nausea, vomiting or diaphoresis. The di scomfort is mildly reproducible on palpation. DIAGNOSTICS EKG reveals sinus mechanism with no acute ST abnormalities noted. Chest xray negative for an acute cardiopulmonary process with a large hiatal hernia noted. Laboratory reviewed, CBC unremarkable, cardiac enzymes negative 3, LDL 64 and HDL 56, sodium 136, potassium 4.8, creatinine 0.84, magnesium 2.0. Current cardiac medications include aspirin 81 mg daily, atorvastatin 80 mg daily, Plavix 75 mg daily, enalapril 10 mg daily, Imdur 60 mg daily, Lopressor 50 mg at bedtime and Ranexa 500 mg twice a day. REVIEW OF SYSTEMS At the time of my exam: CONSTITUTIONAL: Denies fever or chills. CARDIOVASCULAR: Denies chest pain, shortness of breath, orthopnea, PND or palpitations. RESPIRATORY: Denies cough. GASTROINTESTINAL: Denies abdominal pain, diarrhea, constipation, nausea or vomiting. MUSCULOSKELETAL: Denies myalgias. NEUROLOGIC: Denies numbness, tingling or weakness. ENDOCRINE: Denies fatigue, weight change, polydipsia or polyurina. GENITOURINARY: Denies burning, hematuria or urgency with micturation. HEMATOLOGIC: Denies history of anemia or bleeding. PHYSICAL EXAMINATION Blood pressure 129/76 heart rate 58 afebrile and maintaining oxygen saturation on room air. CONSTITUTIONAL: No apparent distress. HEENT: Head is normocephalic. Pupils are equal, round. Sclerae anicteric. Mucous membranes of the mouth are moist. No JVD. No carotid bruit. CHEST EXAMINATION: Lungs are clear to auscultation. No chest wall tenderness is noted on palpation or with deep breathing. HEART EXAMINATION: Regular rate and rhythm. S1, S2 heard. No murmurs, gallops or rub. ABDOMEN: Soft, nontender. Positive bowel sounds. EXTREMITIES: 2+ peripheral pulses, no lower extremity edema and no calf tenderness. NEUROLOGIC EXAMINATION: Patient is awake, alert and oriented x3. ASSESSMENT Chest pain, atypical for angina. Musculoskeletal in nature. Coronary artery disease status post bypass grafting recent PCI of the SVG to diagonal maintained on dual antiplatelet therapy Hypertension Dyslipidemia Diabetes mellitus PLAN Pain is atypical for angina with underlying musculoskeletal injury suspected. An acute coronary event has been ruled out. Stable for discharge from a cardiac perspective. Follow-up in the office with Dr. Araujo in one to 2 weeks. Thank you kindly for this consultation. Nurse Practitioner note has been reviewed, I agree with a documented findings and plan of care. Patient was seen and examined. Past Medical History Past Medical History: Coronary Artery Disease (CAD), Diabetes Mellitus, Hyperlipidemia, Hypertension, Musculoskeletal Disorder Additional Past Medical History / Comment(s): shoulder injury in May History of Any Multi-Drug Resistant Organisms: None Reported Past Surgical History: Coronary Bypass/CABG, Heart Catheterization, Heart Catheterization With Stent Additional Past Surgical History / Comment(s): cabg x4 2000 Past Anesthesia/Blood Transfusion Reactions: No Reported Reaction Date of Last Stent Placement:: 03/06/17 Past Psychological History: No Psychological Hx Reported Smoking Status: Never smoker Past Alcohol Use History: None Reported Past Drug Use History: None Reported - Past Family History Mother Family Medical History: Cancer Additional Family Medical History / Comment(s): skin Father Family Medical History: Coronary Artery Disease (CAD) Medications and Allergies Home Medications Medication Instructions Recorded Confirmed Type Enalapril [Vasotec] 10 mg PO HS 02/08/17 01/28/20 History Insulin Glargine [Lantus] 25 unit SQ BID 02/08/17 01/28/20 History Isosorbide Mononitrate ER [Imdur] 60 mg PO DAILY 02/08/17 01/28/20 History Metoprolol Tartrate [Lopressor] 50 mg PO HS 02/08/17 01/28/20 History INSULIN ASPART (NovoLOG) [NovoLOG See Protocol SQ ACHS 03/01/17 01/28/20 History (formulary)] Clopidogrel [Plavix] 75 mg PO DAILY #90 tab 11/16/18 01/28/20 Rx Ranolazine [Ranexa] 500 mg PO BID 04/18/19 01/28/20 History Aspirin EC [Ecotrin Low Dose] 81 mg PO HS 01/28/20 01/28/20 History Atorvastatin [Lipitor] 80 mg PO HS 01/28/20 01/28/20 History Allergies Allergy/AdvReac Type Severity Reaction Status Date / Time No Known Allergies Allergy Verified 01/28/20 20:55 Physical Exam Vitals: Vital Signs Temp Pulse Pulse Resp BP BP Pulse Ox 01/29/20 08:39 58 L 16 01/29/20 08:07 98.2 F 58 L 16 129/76 96 01/29/20 03:00 97.8 F 60 16 110/54 96 01/28/20 22:25 98.3 F 62 18 154/76 95 01/28/20 21:01 64 18 137/80 97 01/28/20 18:44 98.6 F 80 18 180/95 96 Intake and Output 01/28/20 01/29/20 01/29/20 22:59 06:59 14:59 Intake Total 240 Balance 240 Intake: Oral 240 Other: Voiding Method Toilet Toilet Toilet # Voids 1 Weight 98.43 kg Results 01/28/20 19:25 01/28/20 19:25 Cardiac Enzymes 01/28/20 01/28/20 01/28/20 Range/Units 19:25 19:25 23:25 AST 25 (17-59) U/L Troponin I <0.012 <0.012 (0.000-0.034) ng/mL 01/29/20 Range/Units 01:07 AST (17-59) U/L Troponin I <0.012 (0.000-0.034) ng/mL Coagulation 01/28/20 Range/Units 19:25 PT 10.5 (9.0-12.0) sec APTT 24.1 (22.0-30.0) sec Lipids 01/29/20 Range/Units 01:07 Triglycerides 51 (<150) mg/dL Cholesterol 130 (<200) mg/dL HDL Cholesterol 56 (40-60) mg/dL CBC 01/28/20 Range/Units 19:25 WBC 7.4 (3.8-10.6) k/uL RBC 4.85 (4.30-5.90) m/uL Hgb 15.4 (13.0-17.5) gm/dL Hct 46.6 (39.0-53.0) % Plt Count 205 (150-450) k/uL Comprehensive Metabolic Panel 01/28/20 Range/Units 19:25 Sodium 136 L (137-145) mmol/L Potassium 4.8 (3.5-5.1) mmol/L Chloride 104 (98-107) mmol/L Carbon Dioxide 26 (22-30) mmol/L BUN 23 H (9-20) mg/dL Creatinine 0.84 (0.66-1.25) mg/dL Glucose 170 H (74-99) mg/dL Calcium 9.3 (8.4-10.2) mg/dL AST 25 (17-59) U/L ALT 16 (4-49) U/L Alkaline Phosphatase 62 (38-126) U/L Total Protein 6.6 (6.3-8.2) g/dL Albumin 4.1 (3.5-5.0) g/dL Intake and Output 01/28/20 01/29/20 01/29/20 22:59 06:59 14:59 Intake Total 240 Balance 240 Intake: Oral 240 Other: Voiding Method Toilet Toilet Toilet # Voids 1 Weight 98.43 kg 01/28/20 19:25 01/28/20 19:25
[2020-01-29] MEDS ORDERED: ASPIRIN 81 MG PO SCH (21:00)
== END 2020-01-29 12:06 | disposition home or self-care (01) ==
LOC: EC 18:43 → 3NCARDOBS 20:33
PROVIDERS: ADMIT Internal Medicine; ATTEND Internal Medicine
DX: R07.89 Other chest pain (principal); Z95.1 Presence of aortocoronary bypass graft; Z95.5 Presence of coronary angioplasty implant and graft; E11.9 Type 2 diabetes mellitus without complications; E78.5 Hyperlipidemia, unspecified; I10 Essential (primary) hypertension; I25.10 Atherosclerotic heart disease of native coronary artery without angina pectoris; Z79.02 Long term (current) use of antithrombotics/antiplatelets; Z79.4 Long term (current) use of insulin; Z79.82 Long term (current) use of aspirin; Z79.899 Other long term (current) drug therapy; Z82.49 Family history of ischemic heart disease and other diseases of the circulatory system
CPT/HCPCS: 93005 ×2; 96372; 99285; 36415; 80061; 80053; 83735; 84484 ×2; 85025; 85610; 85730; 71046; G0378 ×2; J1644

== ENCOUNTER 2020-02-24 18:23 | Emergency (ER) | payer MEDICARE ==
[2020-02-24] MEDS ORDERED: SODIUM CHLORIDE 0.9% 1,000 ML IV STA (18:27)
--- NOTE | 2020-02-24 18:28 | ED ---
Chest Pain HPI - General Stated Complaint: Chest Pain Time Seen by Provider: 02/24/20 18:24 Source: RN notes reviewed, old records reviewed Limitations: no limitations - History of Present Illness Initial Comments: Is a 69-year-old male DF for evaluation of chest pain history of heart disease all evaluation here in the ER patient denying any specific chest pain states he felt some some fullness a stress, patient is blood sugar to be low in the 40s eat and drink that did seem to help all symptoms, both chest pain nausea and abdominal pain. Otherwise patient otherwise feels well symptoms are resolved( MD Complaint: chest pain Onset: during rest Pain Location: substernal, left chest Pain Radiation: LUE Severity: moderate Severity scale (1-10): 4 Quality: heaviness Consistency: constant Improves With: nothing Worsens With: nothing Context: recent illness Anginal Symptoms: nausea Other Symptoms: cough Treatments Prior to Arrival: none - Related Data Home Medications Medication Instructions Recorded Confirmed Enalapril [Vasotec] 10 mg PO HS 02/08/17 01/28/20 Insulin Glargine [Lantus] 25 unit SQ BID 02/08/17 01/28/20 Isosorbide Mononitrate ER [Imdur] 60 mg PO DAILY 02/08/17 01/28/20 Metoprolol Tartrate [Lopressor] 50 mg PO HS 02/08/17 01/28/20 INSULIN ASPART (NovoLOG) [NovoLOG See Protocol SQ ACHS 03/01/17 01/28/20 (formulary)] Ranolazine [Ranexa] 500 mg PO BID 04/18/19 01/28/20 Aspirin EC [Ecotrin Low Dose] 81 mg PO HS 01/28/20 01/28/20 Atorvastatin [Lipitor] 80 mg PO HS 01/28/20 01/28/20 Previous Rx's Medication Instructions Recorded Clopidogrel [Plavix] 75 mg PO DAILY #90 tab 11/16/18 Allergies Allergy/AdvReac Type Severity Reaction Status Date / Time No Known Allergies Allergy Verified 01/28/20 20:55 Review of Systems ROS Statement: Those systems with pertinent positive or pertinent negative responses have been documented in the HPI. ROS Other: All systems not noted in ROS Statement are negative. EKG Findings - EKG Comments: EKG Findings:: EKG is sinus rhythm 65 NV 136 QRS 104 QTC 451 Past Medical History Past Medical History: Coronary Artery Disease (CAD), Diabetes Mellitus, Hyperlipidemia, Hypertension, Musculoskeletal Disorder Additional Past Medical History / Comment(s): shoulder injury in May History of Any Multi-Drug Resistant Organisms: None Reported Past Surgical History: Coronary Bypass/CABG, Heart Catheterization, Heart Catheterization With Stent Additional Past Surgical History / Comment(s): cabg x4 2000 Past Anesthesia/Blood Transfusion Reactions: No Reported Reaction Date of Last Stent Placement:: 03/06/17 Past Psychological History: No Psychological Hx Reported Smoking Status: Never smoker Past Alcohol Use History: None Reported Past Drug Use History: None Reported - Past Family History Mother Family Medical History: Cancer Additional Family Medical History / Comment(s): skin Father Family Medical History: Coronary Artery Disease (CAD) General Exam General appearance: alert, in no apparent distress Head exam: Present: atraumatic, normocephalic, normal inspection Eye exam: Present: normal appearance, PERRL, EOMI. Absent: scleral icterus, conjunctival injection, periorbital swelling ENT exam: Present: normal exam, mucous membranes moist Neck exam: Present: normal inspection. Absent: tenderness, meningismus, lymphadenopathy Respiratory exam: Present: normal lung sounds bilaterally. Absent: respiratory distress, wheezes, rales, rhonchi, stridor Cardiovascular Exam: Present: regular rate, normal rhythm, normal heart sounds. Absent: systolic murmur, diastolic murmur, rubs, gallop, clicks GI/Abdominal exam: Present: soft, normal bowel sounds. Absent: distended, tenderness, guarding, rebound, rigid Extremities exam: Present: normal inspection, full ROM, normal capillary refill. Absent: tenderness, pedal edema, joint swelling, calf tenderness Back exam: Present: normal inspection Neurological exam: Present: alert, oriented X3, CN II-XII intact Psychiatric exam: Present: normal affect, normal mood Skin exam: Present: warm, dry, intact, normal color. Absent: rash Course Vital Signs 02/24/20 18:31 Temperature 98.4 F Pulse Rate 67 Respiratory 18 Rate Blood Pressure 141/95 O2 Sat by Pulse 96 Oximetry - Reevaluation(s) Reevaluation #1: 02/24/20 20:32 Medical records reviewed Reevaluation #2: 02/24/20 20:32 Reevaluation patient feels well prefers discharge home Reevaluation #3: 02/24/20 20:32 Patient informed of findings and results, questions answered, blood sugar remains normal patient remains awake and alert Chest Pain MDM - MDM 69 male atypical chest pain abdominal fullness and gas pain. Otherwise a symptomatic here in the ER patient will be discharged Disposition Clinical Impression: Atypical chest pain, Hypoglycemia Disposition: HOME SELF-CARE Condition: Good Instructions (If sedation given, give patient instructions): Chest Pain (ED), Hypoglycemia in a Person with Diabetes (ED) Is patient prescribed a controlled substance at d/c from ED?: No Referrals: Eva Awan MD [Primary Care Provider] - 1-2 days
[2020-02-24 18:36] VITALS: RESP 18; TEMP 98.4
[2020-02-24 18:56] LABS: Glucose,Whole Blood 223 mg/dL (75-99)
[2020-02-24 19:04] LABS: ALT 16 U/L (4-49); AST 25 U/L (17-59); African American GFR (CKD) >90 (>60 ml/min/1.73 sqM); Albumin 3.9 g/dL (3.5-5.0); Alkaline Phosphatase 60 U/L (38-126); Anion Gap 6 mmol/L; Blood Urea Nitrogen 19 mg/dL (9-20); Carbon Dioxide 29 mmol/L (22-30); Chloride 102 mmol/L (98-107); Creatine Kinase 133 U/L (55-170); Glucose 236 mg/dL (74-99); Magnesium 1.9 mg/dL (1.6-2.3); Non-African American GFR(CKD) >90 (>60 ml/min/1.73 sqM); Potassium 4.4 mmol/L (3.5-5.1); Sodium 137 mmol/L (137-145); Total Bilirubin 0.6 mg/dL (0.2-1.3); Total Protein 6.6 g/dL (6.3-8.2)
--- NOTE | 2020-02-24 19:18 | XR ---
EXAMINATION TYPE: XR chest 2V DATE OF EXAM: 02/24/2020 COMPARISON: 01/28/2020. HISTORY: Chest pain. TECHNIQUE: Frontal and lateral views of the chest are obtained. FINDINGS: There is redemonstration of a large hiatal hernia with associated retrocardiac opacity. Ot herwise no significant infiltrate, pleural effusion, or pneumothorax seen. The cardiac silhouette si ze is within normal limits. The osseous structures are intact. Cardiothoracic postsurgical changes noted. IMPRESSION: No acute cardiopulmonary process. Redemonstrated large hiatal hernia.
[2020-02-24 19:29] LABS: Basophils # (A) 0.1 k/uL (0-0.2); Basophils % (A) 0 %; Eosinophils # (A) 0.2 k/uL (0-0.7); Eosinophils % (A) 1 %; HCT 44.8 % (39.0-53.0); HGB 14.9 gm/dL (13.0-17.5); Lymphocytes % (A) 6 %; MCH 33.1 pg (25.0-35.0); MCHC 33.2 g/dL (31.0-37.0); MCV 99.7 fL (80.0-100.0); Mean Platelet Volume 7.4; Monocytes # (A) 0.6 k/uL (0-1.0); Monocytes % (A) 4 %; Neutrophils # (A) 14.2 k/uL (1.3-7.7); Neutrophils % (A) 88 %; Platelet Count 194 k/uL (150-450); RBC 4.49 m/uL (4.30-5.90); RDW 12.1 % (11.5-15.5); WBC 16.1 k/uL (3.8-10.6)
[2020-02-24 19:41] LABS: INR 1.1 (<1.2); Partial Thromboplastin Time 23.8 sec (22.0-30.0); Prothrombin Time 11.1 sec (9.0-12.0)
[2020-02-24 20:45] VITALS: BP 126/70; PULSE 68
== END 2020-02-24 20:44 | disposition home or self-care (01) ==
LOC: EC 18:23
DX: R07.89 Other chest pain (principal); E11.649 Type 2 diabetes mellitus with hypoglycemia without coma; I10 Essential (primary) hypertension; E78.5 Hyperlipidemia, unspecified; I25.10 Atherosclerotic heart disease of native coronary artery without angina pectoris; Z79.4 Long term (current) use of insulin; Z79.82 Long term (current) use of aspirin; Z79.899 Other long term (current) drug therapy; Z95.1 Presence of aortocoronary bypass graft
CPT/HCPCS: 36415; 71046; 80053; 82550; 83690; 83735; 83880; 84484; 85025; 85610; 85730; 93005; 96360; 96361; 99285

== ENCOUNTER 2020-12-01 06:51 | Day surgery (SDC) | payer MEDICARE ==
[2020-11-26 13:29] VITALS: BMI 26.4
[~2020-12-01 06:51] MED LIST changes: -ALPRAZolam 0.25 MG TAB PO PRN; -ALPRAZolam 0.5 MG TAB PO PRN; -ASPIRIN 325 MG TAB PO ONE; -ATORVASTATIN 80 MG TAB PO ONE; +LACTATED RINGERS 1,000 ML IV SCH; +LIDOCAINE 1% (10MG/ML) FOR IV START INTRADERMA PRN; -NITROGLYCERIN SL TABS 0.4 MG TAB SUBLINGUAL PRN; -SODIUM CHLORIDE 0.9% 1,000 ML in EMPTY BAG 1 BAG IV ONE
[2020-12-01 07:32] VITALS: TEMP 97.9
[2020-12-01] MEDS ORDERED: PROPOFOL 10 MG/ML 20 ML VIAL IV ONE (07:34)
[2020-12-01] MEDS ORDERED: LIDOCAINE 1% INJ 10MG/ML (20 ML MDV) ONE (07:34)
[2020-12-01 07:37] LABS: Glucose,Whole Blood 198 mg/dL (75-99)
[2020-12-01 08:06] VITALS: RESP 16
--- NOTE | 2020-12-01 08:06 | P.PCN ---
Date of Procedure: 12/01/20 Procedure(s) Performed: Brief history: Patient is a pleasant 70-year-old white male scheduled for an elective upper endoscopy as well as colonoscopy as a part of evaluation of intermittent episodes of severe epigastric pain for the last 3 years duration. These episodes typically coincide with hyperglycemic apex and resolved quickly. He is also scheduled for a colonoscopy as a part of screening for colorectal neoplasia Procedure performed: Esophagogastroduodenoscopy biopsy Colonoscopy with biopsy Preoperative diagnosis: Abdominal pain/epigastric pain Screening for colon cancer Anesthesia: MAC Procedure: After informed consent was obtained from the patient was brought into the endoscopy unit and IV sedation was administered by anesthesia under continuous monitoring. Initially upper endoscopy was done. The Olympus GF 160 video endoscope was inserted inserted into the mouth and esophagus intubated without any difficulty and was gradually advanced into the stomach and duodenum and carefully examined. The bulb and second part of the duodenum appeared normal. The scope was then withdrawn into the stomach adequately insufflated with air and upon careful examination the antrum had mild gastritis and biopsies were done from this area. The body, cardia and fundus appeared normal. The scope was then withdrawn into the esophagus. The GE junction was located at 35 cm to the incisors. There was a moderate to large size hiatal hernia noted. The GE junction appeared regular with no erythema erosions or ulcerations. Biopsies were done from the distal esophagus. Rest of the esophagus appeared normal. Patient tolerated the procedure well. At this time the patient continued to remain sedation. Initial digital rectal examination was normal. Olympus CF 160 video colonoscope was then inserted into the rectum and gradually advanced to the cecum without any difficulty. Careful examination was performed as the scope was gradually being withdrawn. The prep was excellent. The cecum appeared normal. Ascending colon there was a 3 mm polyp that was removed by cold biopsy. Rest of the, ascending colon, transverse colon, descending colon, sigmoid colon and rectum appeared normal. Scattered sigmoid diverticulosis seen. Retroflexion was performed in the rectum and no lesions were noted. Patient tolerated the procedure well. Impression: 1. Upper endoscopy revealed moderate size hiatal hernia and mild antral gastritis 2. Colonoscopy revealed 3 mm ascending colon polyp status post biopsy and scattered sigmoid diverticulosis Recommendations: Findings of this examination were discussed with the patient as well as his family. He was advised to follow with the biopsy results. If the biopsy revealed adenoma he can have a repeat colonoscopy in 5 years. In the past and intermittent episodes of abdominal pain and can give him a trial of omeprazole 20 mg daily for 3 months and see if this helps his symptoms and also try to avoid hypoglycemic events.
[2020-12-01 08:24] VITALS: BP 117/70; PULSE 56
== END 2020-12-01 08:57 | disposition home or self-care (01) ==
LOC: ORWHC2ENDO 06:51
PROVIDERS: ATTEND Internal Medicine Gastroenterology
DX: Z12.11 Encounter for screening for malignant neoplasm of colon (principal); K57.30 Diverticulosis of large intestine without perforation or abscess without bleeding; K29.50 Unspecified chronic gastritis without bleeding; D12.2 Benign neoplasm of ascending colon; D12.4 Benign neoplasm of descending colon; K44.9 Diaphragmatic hernia without obstruction or gangrene; Z98.890 Other specified postprocedural states; I25.10 Atherosclerotic heart disease of native coronary artery without angina pectoris; E78.5 Hyperlipidemia, unspecified; I10 Essential (primary) hypertension; E11.9 Type 2 diabetes mellitus without complications; Z79.4 Long term (current) use of insulin; Z79.82 Long term (current) use of aspirin
CPT/HCPCS: 45380; 43239; 88305; J2001; J2704

== ENCOUNTER → 2020-12-13 | Outpatient (CLI) | payer MEDICARE ==
[2020-12-13 15:04] LABS: HGB 15.8 g/dL (13.0-17.0); MCH 31.7 pg (27.0-32.0); MCHC 32.9 g/dL (32.0-37.0); MCV 96.4 fL (80.0-97.0); Mean Platelet Volume 10.4 fL (9.5-12.2); Platelet Count 211 X 10*3/uL (140-440); RBC 4.98 X 10*6/uL (4.40-5.60); RDW 12.3 % (11.5-14.5); WBC 6.12 X 10*3/uL (4.50-10.00)
[2020-12-13 16:00] LABS: African American GFR (CKD) 104.9 (60.0-200.0); Albumin 4.3 g/dL (3.80-4.90); Albumin/Globulin Ratio 1.72 (1.60-3.17); Anion Gap 5.9 mmol/L (4.00-12.00); BUN/Creat Ratio 16.25 Ratio (12.00-20.00); Carbon Dioxide 30.1 mmol/L (21.6-31.8); Chol/HDL Ratio 2.68; Globulin 2.5 g/dL (1.6-3.3); Magnesium 1.9 mg/dL (1.5-2.4); Non-African American GFR(CKD) 90.5 (60.0-200.0); Potassium 4.3 mmol/L (3.5-5.5); Total Bilirubin 1.1 mg/dL (0.2-1.2); Total Protein 6.8 g/dL (6.2-8.2)
[2020-12-13 16:07] LABS: Prostate Specific Antigen 1.9 ng/mL (0.0-6.5)
[2020-12-13 18:02] LABS: Hemoglobin A1C 8.4 % (4.0-6.0)
[2020-12-13 19:11] LABS: Microalbumin Creatinine Ratio <30 mg/g Creat (0-30)
== END | disposition home or self-care (01) ==
LOC: LABWHC1 08:23
PROVIDERS: ATTEND Internal Medicine Endocrinology, Diabetes & Metabolism
DX: E10.65 Type 1 diabetes mellitus with hyperglycemia (principal); I25.10 Atherosclerotic heart disease of native coronary artery without angina pectoris; R10.9 Unspecified abdominal pain
CPT/HCPCS: 36415; 80053; 80061; 82043; 82150; 82550; 82570; 83036; 83690; 83735; 84153; 84443; 85027

== ENCOUNTER 2021-08-13 14:05 | Observation (INO) | payer MEDICARE ==
[2021-08-13] MEDS ORDERED: DEXTROSE 50% SYRINGE 50 ML IVP STA ×2 (14:24→16:05)
[2021-08-13 14:27] LABS: Glucose,Whole Blood 36 mg/dL (75-99)
[2021-08-13 14:40] LABS: Glucose,Whole Blood 128 mg/dL (75-99)
--- NOTE | 2021-08-13 14:40 | ED ---
Recheck HPI - General Chief Complaint: Recheck/Abnormal Lab/Rx Stated Complaint: hypoglycemia Time Seen by Provider: 08/13/21 14:34 Source: patient Mode of arrival: ambulatory Limitations: no limitations - History of Present Illness Initial Comments: Blaine is a 70-year-old gentleman with history of insulin-dependent diabetes who presents the ER today for evaluation of hypoglycemia. Patient states that prior to today he had been using a violent insulin that was older then 28 days and he believes may have had some decreased efficacy, he had been giving himself increasingly larger and larger doses. Today he opened a new vial gave himself a large dose (20 units) of insulin and then became hypoglycemic. Patient states he could feel him cell becoming hypoglycemic he checked his sugar and it was low so he gave himself a glucagon pen. Patient states that when he has episodes of hypoglycemia he develops nausea and crampy abdominal pain and is unable to take anything by mouth so he has to use the glucagon pen. He used it and sugar increased to the 80s however it began decreasing intensity asked his to bring him to the hospital. - Related Data Home Medications Medication Instructions Recorded Confirmed Enalapril [Vasotec] 10 mg PO HS 02/08/17 08/13/21 Insulin Glargine [Lantus Vial] 25 unit SQ BID 02/08/17 08/13/21 Isosorbide Mononitrate ER [Imdur] 60 mg PO DAILY 02/08/17 08/13/21 Metoprolol Tartrate [Lopressor] 50 mg PO HS 02/08/17 08/13/21 INSULIN ASPART (NovoLOG) [NovoLOG 30 unit SQ TID-W/MEALS PRN 03/01/17 08/13/21 (formulary)] Ranolazine [Ranexa] 500 mg PO BID 04/18/19 08/13/21 Atorvastatin [Lipitor] 80 mg PO HS 01/28/20 08/13/21 Glucagon Emergency Kit 1 mg IM ONCE PRN 08/13/21 08/13/21 Previous Rx's Medication Instructions Recorded Clopidogrel [Plavix] 75 mg PO DAILY #90 tab 11/16/18 Allergies Allergy/AdvReac Type Severity Reaction Status Date / Time No Known Allergies Allergy Verified 08/13/21 16:39 Review of Systems ROS Statement: Those systems with pertinent positive or pertinent negative responses have been documented in the HPI. ROS Other: All systems not noted in ROS Statement are negative. Past Medical History Past Medical History: Coronary Artery Disease (CAD), Diabetes Mellitus, Hyperlipidemia, Hypertension, Musculoskeletal Disorder Additional Past Medical History / Comment(s): shoulder injury in May History of Any Multi-Drug Resistant Organisms: None Reported Past Surgical History: Coronary Bypass/CABG, Heart Catheterization, Heart Catheterization With Stent, Orthopedic Surgery Additional Past Surgical History / Comment(s): cabg x4 1999, left rotator cuff Past Anesthesia/Blood Transfusion Reactions: No Reported Reaction Date of Last Stent Placement:: 03/06/17 Past Psychological History: No Psychological Hx Reported Smoking Status: Never smoker Past Alcohol Use History: Rare Past Drug Use History: None Reported - Past Family History Mother Family Medical History: Cancer Additional Family Medical History / Comment(s): skin Father Family Medical History: Coronary Artery Disease (CAD) General Exam - General Exam Comments Initial Comments: Physical Exam GENERAL: Chronically ill appearing HENT: Normocephalic, Atraumatic. EYES: PERRL, EOMI PULMONARY: Unlabored respirations. CARDIOVASCULAR: RRR Warm and well perfused extremities Midline sternal scar consistent with CABG ABDOMEN: Non-distended SKIN: No rashes or bruising : Deferred NEUROLOGIC: Alert and oriented Normal speech MUSCULOSKELETAL: Moving all extremities with no apparent injury PSYCHIATRIC: No SI/HI Limitations: no limitations Course Vital Signs 08/13/21 14:08 Temperature 98 F Pulse Rate 69 Respiratory 16 Rate Blood Pressure 199/106 O2 Sat by Pulse 97 Oximetry Medical Decision Making - Medical Decision Making The patient was seen and evaluated upon arrival, history was initially taken fr om patient and . Patient's initial glucose at bedside was 36 he was given an amp of D50. Labs are obtained patient's glucose was critically low however this blood was taken prior to the amp of D50, patient's lipase was not elevated despite having some epigastric abdominal discomfort which he reports he otherwise has with hypoglycemia. Patient reported feeling somewhat better but was having vomiting and unable tolerate any oral intake and had recurrent episode of hypoglycemia requiring a second amp of D50. At this time a D5 drip was initiated and decision was made to admit the patient for observation. Patient reports his insulin intake was around noon it was 20 units of normal insulin. Affect should subside by late tonight and patient should be stable for discharge tomorrow. Sebastian was discussed with sound physician Dr. Forte who accepts the admission. - Lab Data Result diagrams: 08/13/21 14:43 08/13/21 14:43 Lab Results 08/13/21 08/13/21 08/13/21 Range/Units 14:17 14:36 14:43 WBC 13.6 H (3.8-10.6) k/uL RBC 5.02 (4.30-5.90) m/uL Hgb 16.4 (13.0-17.5) gm/dL Hct 49.1 (39.0-53.0) % MCV 97.9 (80.0-100.0) fL MCH 32.7 (25.0-35.0) pg MCHC 33.4 (31.0-37.0) g/dL RDW 12.4 (11.5-15.5) % Plt Count 233 (150-450) k/uL MPV 7.8 Neutrophils % 63 % Lymphocytes % 26 % Monocytes % 7 % Eosinophils % 2 % Basophils % 0 % Neutrophils # 8.6 H (1.3-7.7) k/uL Lymphocytes # 3.5 (1.0-4.8) k/uL Monocytes # 0.9 (0-1.0) k/uL Eosinophils # 0.2 (0-0.7) k/uL Basophils # 0.1 (0-0.2) k/uL Sodium (137-145) mmol/L Potassium (3.5-5.1) mmol/L Chloride (98-107) mmol/L Carbon Dioxide (22-30) mmol/L Anion Gap mmol/L BUN (9-20) mg/dL Creatinine (0.66-1.25) mg/dL Est GFR (CKD-EPI)AfAm (>60 ml/min/1.73 sqM) Est GFR (CKD-EPI)NonAf (>60 ml/min/1.73 sqM) Glucose (74-99) mg/dL POC Glucose (mg/dL) 36 L 128 H (75-99) mg/dL POC Glu Cash On Delivery Clerk ID Marybeth Mendoza, Marybeth Calcium (8.4-10.2) mg/dL Total Bilirubin (0.2-1.3) mg/dL AST (17-59) U/L ALT (4-49) U/L Alkaline Phosphatase (38-126) U/L Total Protein (6.3-8.2) g/dL Albumin (3.5-5.0) g/dL Lipase (23-300) U/L 08/13/21 08/13/21 08/13/21 Range/Units 14:43 15:03 16:08 WBC (3.8-10.6) k/uL RBC (4.30-5.90) m/uL Hgb (13.0-17.5) gm/dL Hct (39.0-53.0) % MCV (80.0-100.0) fL MCH (25.0-35.0) pg MCHC (31.0-37.0) g/dL RDW (11.5-15.5) % Plt Count (150-450) k/uL MPV Neutrophils % % Lymphocytes % % Monocytes % % Eosinophils % % Basophils % % Neutrophils # (1.3-7.7) k/uL Lymphocytes # (1.0-4.8) k/uL Monocytes # (0-1.0) k/uL Eosinophils # (0-0.7) k/uL Basophils # (0-0.2) k/uL Sodium 142 (137-145) mmol/L Potassium 3.7 (3.5-5.1) mmol/L Chloride 105 (98-107) mmol/L Carbon Dioxide 27 (22-30) mmol/L Anion Gap 10 mmol/L BUN 20 (9-20) mg/dL Creatinine 0.74 (0.66-1.25) mg/dL Est GFR (CKD-EPI)AfAm >90 (>60 ml/min/1.73 sqM) Est GFR (CKD-EPI)NonAf >90 (>60 ml/min/1.73 sqM) Glucose 27 L* (74-99) mg/dL POC Glucose (mg/dL) 36 L (75-99) mg/dL POC Glu Cash On Delivery Clerk ID Marybeth Mendoza Calcium 9.4 (8.4-10.2) mg/dL Total Bilirubin 0.9 (0.2-1.3) mg/dL AST 26 (17-59) U/L ALT 19 (4-49) U/L Alkaline Phosphatase 55 (38-126) U/L Total Protein 7.5 (6.3-8.2) g/dL Albumin 4.5 (3.5-5.0) g/dL Lipase 39 (23-300) U/L - EKG Data -: EKG Interpreted by Me EKG Comments: EKG obtained at 14:37 rate 67 sinus with sinus arrhythmia. There is a P-wave before each QRS which is consistent with sinus. No acute ST elevations or depressions no evidence of ischemia or infarction. Disposition Clinical Impression: Hypoglycemia due to insulin Disposition: ADMITTED IP TO THIS HOSP Condition: Stable Is patient prescribed a controlled substance at d/c from ED?: No Referrals: None,Stated [Primary Care Provider] - 1-2 days
[2021-08-13] MEDS ORDERED: ONDANSETRON 4 MG/2 ML VIAL IVP STA ×3 (14:59→22:17)
[2021-08-13 15:18] LABS: Basophils # (A) 0.1 k/uL (0-0.2); Basophils % (A) 0 %; Eosinophils # (A) 0.2 k/uL (0-0.7); Eosinophils % (A) 2 %; HCT 49.1 % (39.0-53.0); HGB 16.4 gm/dL (13.0-17.5); Lymphocytes # (A) 3.5 k/uL (1.0-4.8); Lymphocytes % (A) 26 %; MCH 32.7 pg (25.0-35.0); MCHC 33.4 g/dL (31.0-37.0); MCV 97.9 fL (80.0-100.0); Mean Platelet Volume 7.8; Monocytes # (A) 0.9 k/uL (0-1.0); Monocytes % (A) 7 %; Neutrophils # (A) 8.6 k/uL (1.3-7.7); Neutrophils % (A) 63 %; Platelet Count 233 k/uL (150-450); RBC 5.02 m/uL (4.30-5.90); RDW 12.4 % (11.5-15.5); WBC 13.6 k/uL (3.8-10.6)
[2021-08-13 15:29] LABS: ALT 19 U/L (4-49); AST 26 U/L (17-59); African American GFR (CKD) >90 (>60 ml/min/1.73 sqM); Albumin 4.5 g/dL (3.5-5.0); Alkaline Phosphatase 55 U/L (38-126); Anion Gap 10 mmol/L; Blood Urea Nitrogen 20 mg/dL (9-20); Calcium 9.4 mg/dL (8.4-10.2); Carbon Dioxide 27 mmol/L (22-30); Chloride 105 mmol/L (98-107); Non-African American GFR(CKD) >90 (>60 ml/min/1.73 sqM); Potassium 3.7 mmol/L (3.5-5.1); Sodium 142 mmol/L (137-145); Total Bilirubin 0.9 mg/dL (0.2-1.3); Total Protein 7.5 g/dL (6.3-8.2)
[2021-08-13 16:05] LABS: Glucose 27 mg/dL (74-99)
[2021-08-13 16:19] LABS: Glucose,Whole Blood 36 mg/dL (75-99)
[2021-08-13] MEDS ORDERED: DEXTROSE 5%-0.9% NACL 1,000 ML IV SCH (17:00)
[2021-08-13] MEDS ORDERED: NALOXONE 0.4 MG/ML 1 ML VIAL IV PRN (17:34)
[2021-08-13] MEDS ORDERED: MORPHINE SULFATE 4 MG/ML SYRINGE IVP STA (18:25)
[2021-08-13 18:30] LABS: Glucose,Whole Blood 160 mg/dL (75-99)
[2021-08-13 18:35] LABS: Appearance,Urine Clear (Clear); Bilirubin,Urine Negative (Negative); Blood,Urine Negative (Negative); Color,Urine Yellow; Glucose,Urine (UA) 3+ (Negative); Leukocyte Esterase,Urine Negative (Negative); Mucus,Urine Occasional /hpf; Nitrite,Urine Negative (Negative); PH, Urine 5.5 (5.0-8.0); Protein,Urine 1+ (Negative); RBC,Urine 3 /hpf (0-5); Specific Gravity,Urine 1.029 (1.001-1.035); WBC,Urine <1 /hpf (0-5)
[2021-08-13 18:42] LABS: Ketones,Urine 2+ (Negative)
[2021-08-13 19:15] LABS: Glucose,Whole Blood 215 mg/dL (75-99)
[2021-08-13] MEDS ORDERED: ACETAMINOPHEN TAB 325 MG TAB PO PRN (19:39)
[2021-08-13] MEDS ORDERED: METOCLOPRAMIDE 5 MG/ML 2 ML VIAL IVP STA (20:28)
[2021-08-13] MEDS ORDERED: METOCLOPRAMIDE 5 MG/ML 2 ML VIAL IVP PRN (20:28)
--- NOTE | 2021-08-13 20:56 | P.HPIM ---
History of Present Illness H&P Date: 08/13/21 Chief Complaint: Abdominal pain Patient is a 70-year-old male with PMH CAD s/p CABG, diabetes mellitus, hypertension, dyslipidemia presents to the ED for hypoglycemia. Patient reported his blood surgar to be "low" on his glucometer which correlates to a blood sugar of 40. He took a glucagon shot which increased his blood sugar to 80 but progressively trended down to "low" again. This prompted him to come to the ED. He reports epigastric pain, sore in nature without radiating features. Abdominal pain is associated with nausea and vomting. He reports that he gets abdominal pain every time his blood sugar is low. He admits taking increased amounts of insulin because his insulin is . He is normally on Lantus 25 units twice a day. He denies any headache, lower extremity edema, fever or chills, cough, chest pain, shortness of breath, palpitations, changes in urination or bowel habits. No changes in appetite or weight. No currently dizziness, numbness/weakness/tingling of the extremities. In the ED his vital signs were stable. His BP was 199/106, and 151/72 on repeat. CBC showed leukocytosis of 13.6. INR and DDimer was within normal limits. CMP shows glucose of 27. He received multiple amps of D50 and was admitted for further management. Review of Systems All systems: negative Past Medical History Past Medical History: Coronary Artery Disease (CAD), Diabetes Mellitus, Hyp erlipidemia, Hypertension, Musculoskeletal Disorder Additional Past Medical History / Comment(s): left shoulder fx and torn rotator cuff shoulder History of Any Multi-Drug Resistant Organisms: None Reported Past Surgical History: Coronary Bypass/CABG, Heart Catheterization, Heart Catheterization With Stent, Orthopedic Surgery Additional Past Surgical History / Comment(s): cabg x4 1999, left rotator cuff repair, 3 cardiac stents Past Anesthesia/Blood Transfusion Reactions: No Reported Reaction Date of Last Stent Placement:: 03/06/17 Past Psychological History: No Psychological Hx Reported Smoking Status: Never smoker Past Alcohol Use History: Rare Past Drug Use History: None Reported - Past Family History Mother Family Medical History: Cancer Additional Family Medical History / Comment(s): skin Father Family Medical History: Coronary Artery Disease (CAD) Medications and Allergies Home Medications Medication Instructions Recorded Confirmed Type Enalapril [Vasotec] 10 mg PO HS 02/08/17 08/13/21 History Insulin Glargine [Lantus Vial] 25 unit SQ BID 02/08/17 08/13/21 History Isosorbide Mononitrate ER [Imdur] 60 mg PO DAILY 02/08/17 08/13/21 History Metoprolol Tartrate [Lopressor] 50 mg PO HS 02/08/17 08/13/21 History INSULIN ASPART (NovoLOG) [NovoLOG 30 unit SQ TID-W/MEALS PRN 03/01/17 08/13/21 History (formulary)] Clopidogrel [Plavix] 75 mg PO DAILY #90 tab 11/16/18 08/13/21 Rx Ranolazine [Ranexa] 500 mg PO BID 04/18/19 08/13/21 History Atorvastatin [Lipitor] 80 mg PO HS 01/28/20 08/13/21 History Glucagon Emergency Kit 1 mg IM ONCE PRN 08/13/21 08/13/21 History Allergies Allergy/AdvReac Type Severity Reaction Status Date / Time No Known Allergies Allergy Verified 08/13/21 16:39 Physical Exam Vitals: Vital Signs Temp Pulse Resp BP Pulse Ox 08/13/21 18:12 72 16 151/72 97 08/13/21 14:08 98 F 69 16 199/106 97 Intake and Output 08/13/21 08/13/21 08/13/21 06:59 14:59 22:59 Other: Weight 97.069 kg 97.069 kg General: [non toxic], [no distress], [appears at stated age] Derm: [warm], [dry] Head: [atraumatic], [normocephalic], [symmetric] Eyes: [EOMI], [no lid lag], [anicteric sclera] Mouth: [no lip lesion], [mucus membranes moist] Cardiovascular: [S1S2 reg], [no murmur], [positive DP pulse bilateral], Lungs: [CTA bilateral], [no rhonchi, no rales] , [no accessory muscle use] Abdominal: [soft], [TTP epigastric area without rebound], [no guarding], [no appreciable organomegaly] Ext: [no gross muscle atrophy], [no edema], [no contractures] Neuro: [no focal neuro deficits] Psych: [Alert], [oriented], [appropriate affect] Results CBC & Chem 7: 08/13/21 14:43 08/13/21 14:43 Labs: Abnormal Lab Results - Last 24 Hours (Table) 08/13/21 08/13/21 08/13/21 Range/Units 14:17 14:36 14:43 WBC 13.6 H (3.8-10.6) k/uL Neutrophils # 8.6 H (1.3-7.7) k/uL Glucose (74-99) mg/dL POC Glucose (mg/dL) 36 L 128 H (75-99) mg/dL Urine Protein (Negative) Urine Glucose (UA) (Negative) Urine Ketones (Negative) Urine Mucus (None) /hpf 08/13/21 08/13/21 08/13/21 Range/Units 14:43 16:08 18:10 WBC (3.8-10.6) k/uL Neutrophils # (1.3-7.7) k/uL Glucose 27 L* (74-99) mg/dL POC Glucose (mg/dL) 36 L 160 H (75-99) mg/dL Urine Protein (Negative) Urine Glucose (UA) (Negative) Urine Ketones (Negative) Urine Mucus (None) /hpf 08/13/21 08/13/21 Range/Units 18:27 19:12 WBC (3.8-10.6) k/uL Neutrophils # (1.3-7.7) k/uL Glucose (74-99) mg/dL POC Glucose (mg/dL) 215 H (75-99) mg/dL Urine Protein 1+ H (Negative) Urine Glucose (UA) 3+ H (Negative) Urine Ketones 2+ H (Negative) Urine Mucus Occasional H (None) /hpf Thrombosis Risk Factor Assmnt - Choose All That Apply Any of the Below Risk Factors Present?: Yes Each Factor Represents 1 point: Obesity (BMI >25) Each Risk Factor Represents 2 Points: Age 61-74 years Thrombosis Risk Factor Assessment Total Risk Factor Score: 3 Thrombosis Risk Factor Assessment Level: Moderate Risk Assessment and Plan Assessment: #Symptomatic hypoglyemia, insulin induced #Leukocytosis #Abdominal pain #Intractable nausea or vomiting Chronic conditions: CAD, hypertension, dyslipidemia Patient is admissted for blood glucose of 27. Insulin will be discontinued. He will be started at D5NS at 100 cc/hr and accuchecks are ordered every 2 hours. He will be placed on telemetry monitoring. His leukocytosis is likely reactive and he shows no signs of infection. His abdominal pain is of unknown origin, possibly related to gastritis. He will be given Morphine as needed for pain. He will be given Reglan as needed for nausea or vomiting. Patient will be placed on fall precautions. A1c will be ordered. Lovenox for DVT prophylaxis. Patient names his decision maker if he cant make decisions for himself. Patient would like to be FULL CODE.
[2021-08-13 20:57] LABS: Glucose,Whole Blood 286 mg/dL (75-99)
[2021-08-13] MEDS: ATORVASTATIN 80 MG TAB PO SCH (21:11)
[2021-08-13] MEDS: METOPROLOL TARTRATE 50 MG TAB PO SCH (21:11)
[2021-08-13] MEDS: RANOLAZINE 500 MG TAB.ER.12H PO SCH (21:11)
[2021-08-13] MEDS: lisinopriL 20 MG TAB PO SCH (21:11)
[2021-08-13] MEDS: MORPHINE SULFATE 2 MG/ML SYRINGE IVP PRN (21:24)
[2021-08-13 22:09] LABS: Glucose,Whole Blood 308 mg/dL (75-99)
[2021-08-13] MEDS ORDERED: SODIUM CHLORIDE 0.9% 1,000 ML IV SCH (22:30)
[2021-08-14 00:53] LABS: Glucose,Whole Blood 388 mg/dL (75-99)
[2021-08-14] MEDS ORDERED: PANTOPRAZOLE 40 MG/10 ML VIAL IVP STA (02:11)
[2021-08-14 02:40] LABS: Glucose,Whole Blood 414 mg/dL (75-99)
[2021-08-14] MEDS ORDERED: INSULIN DETEMIR (LEVEMIR) 100 UNIT/ML SYR SQ SCH (03:44)
[2021-08-14] MEDS ORDERED: INSULIN ASPART (NovoLOG) 100 UNIT/ML VIAL SQ ONE ×4 (03:44→11:00)
[2021-08-14] MEDS: MORPHINE SULFATE 2 MG/ML SYRINGE IVP PRN (03:58)
[2021-08-14 04:14] LABS: Glucose,Whole Blood 418 mg/dL (75-99)
[2021-08-14] MEDS: lisinopriL 20 MG TAB PO SCH (05:16)
[2021-08-14] MEDS: ATORVASTATIN 80 MG TAB PO SCH (05:16)
[2021-08-14] MEDS: METOPROLOL TARTRATE 50 MG TAB PO SCH (05:17)
[2021-08-14] MEDS: RANOLAZINE 500 MG TAB.ER.12H PO SCH ×2 (05:17→08:20)
[2021-08-14 06:17] LABS: Glucose,Whole Blood 468 mg/dL (75-99)
[2021-08-14] MEDS ORDERED: PANTOPRAZOLE 40 MG TABLET PO SCH (07:30)
[2021-08-14 07:59] VITALS: BP 123/64; PULSE 96; RESP 14; TEMP 98.3
[2021-08-14 08:03] LABS: Glucose,Whole Blood 471 mg/dL (75-99)
[2021-08-14] MEDS ORDERED: CLOPIDOGREL 75 MG TAB PO SCH (09:00)
[2021-08-14] MEDS ORDERED: ENOXAPARIN 40 MG/0.4 ML SYRINGE SQ SCH (09:00)
[2021-08-14] MEDS ORDERED: ISOSORBIDE MONONITRATE ER 60 MG TAB.ER.24H PO SCH (09:00)
--- NOTE | 2021-08-14 09:31 | P.DS ---
Providers Date of admission: 08/13/21 17:34 Expected date of discharge: 08/14/21 Attending physician: Krystin Cristobal DO Primary care physician: Stated None Hospital Course: Patient is a 70-year-old male with PMH CAD s/p CABG, diabetes mellitus, hypertension, dyslipidemia presents to the ED for hypoglycemia. Patient reported his blood surgar to be "low" on his glucometer which correlates to a blood sugar of 40. He took a glucagon shot which increased his blood sugar to 80 but progressively trended down to "low" again. This prompted him to come to the ED. He reports epigastric pain, sore in nature without radiating features. Abdominal pain is associated with nausea and vomting. He reports that he gets abdominal pain every time his blood sugar is low. He admits taking increased amounts of insulin because his insulin is . He is normally on Lantus 25 units twice a day. He denies any headache, lower extremity edema, fever or chills, cough, chest pain, shortness of breath, palpitations, changes in urination or bowel habits. No changes in appetite or weight. No currently dizziness, numbness/weakness/tingling of the extremities. In the ED his vital signs were stable. His BP was 199/106, and 151/72 on repeat. CBC showed leukocytosis of 13.6. INR and DDimer was within normal limits. CMP shows glucose of 27. He received multiple amps of D50 and was admitted for further management. Patient was started on D5 normal saline at 100 mL per hour. His hypoglycemia resolved. His mentation considerably improved. He was seen and examined on 08/14/2021. He reported complete resolution of his abdominal pain. His [id number]-[id number] Accu-Chek was in the 400s this morning. He was restarted back on his long-acting insulin along with sliding scale. He was advised to continue Lantus 25 units twice a day. He was advised to not go over 5 units 3 times a day with meals with regard to his NovoLog. He was advised against using insulin. Patient reported having all diabetic supplies including insulin, lancets and test strips. He was advised to follow-up with his PCP within 3 days of discharge. Follow-up with endocrinology Dr. Jernigan within 1 week of discharge. Patient verbalized understanding of the plan. General: [non toxic], [no distress], [appears at stated age] Derm: [warm], [dry] Head: [atraumatic], [normocephalic], [symmetric] Eyes: [EOMI], [no lid lag], [anicteric sclera] Mouth: [no lip lesion], [mucus membranes moist] Cardiovascular: [S1S2 reg], [no murmur] Lungs: [CTA bilateral], [no rhonchi, no rales] , [no accessory muscle use] Abdominal: [soft], [ nontender to palpation], [no guarding], [no appreciable organomegaly] Ext: [no gross muscle atrophy], [no edema], [no contractures] Neuro: [no focal neuro deficits] Psych: [Alert], [oriented], [appropriate affect] Discharge Diagnosis: #Symptomatic hypoglyemia, insulin induced #Leukocytosis likely reactive #Abdominal pain, resolved #Intractable nausea or vomiting, resolved Chronic conditions: CAD, hypertension, dyslipidemia This complex discharge took over 45 minutes to complete. Patient Condition at Discharge: Good Plan - Discharge Summary New Discharge Prescriptions: Continue Isosorbide Mononitrate ER [Imdur] 60 mg PO DAILY Insulin Glargine [Lantus Vial] 25 unit SQ BID Enalapril [Vasotec] 10 mg PO HS Metoprolol Tartrate [Lopressor] 50 mg PO HS Clopidogrel [Plavix] 75 mg PO DAILY #90 tab Ranolazine [Ranexa] 500 mg PO BID Atorvastatin [Lipitor] 80 mg PO HS Glucagon Emergency Kit 1 mg IM ONCE PRN PRN Reason: low blood sugar Discontinued INSULIN ASPART (NovoLOG) [NovoLOG (formulary)] 30 unit SQ TID-W/MEALS PRN PRN Reason: high blood sugar Discharge Medication List Enalapril [Vasotec] 10 mg PO HS 02/08/17 [History] Insulin Glargine [Lantus Vial] 25 unit SQ BID 02/08/17 [History] Isosorbide Mononitrate ER [Imdur] 60 mg PO DAILY 02/08/17 [History] Metoprolol Tartrate [Lopressor] 50 mg PO HS 02/08/17 [History] Clopidogrel [Plavix] 75 mg PO DAILY #90 tab 11/16/18 [Rx] Ranolazine [Ranexa] 500 mg PO BID 04/18/19 [History] Atorvastatin [Lipitor] 80 mg PO HS 01/28/20 [History] Glucagon Emergency Kit 1 mg IM ONCE PRN 08/13/21 [History] Follow up Appointment(s)/Referral(s): None,Stated [Primary Care Provider] - 1-2 days Anita Tariq MD [STAFF PHYSICIAN] - 1 Week Activity/Diet/Wound Care/Special Instructions: Diet: Diabetic Follow-up with your PCP within 3 days of discharge. 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 Please use your long-acting insulin 25 units twice a day. With regard to her short acting insulin, do not over 5 units 3 times a day with meals. Please do not use insulin. Please monitor your blood sugar at least 3 times a day. Discharge Disposition: HOME SELF-CARE
[2021-08-14 10:03] LABS: Glucose,Whole Blood 391 mg/dL (75-99)
[2021-08-14 11:33] LABS: Estimated Average Glucose UNC
[2021-08-14 11:38] LABS: Basophils # (A) 0.03 X 10*3/uL (0.00-0.10); Basophils % (A) 0.2 %; Eosinophils # (A) 0 X 10*3/uL (0.04-0.35); Eosinophils % (A) 0 %; HCT 43.8 % (39.6-50.0); HGB 13.9 g/dL (13.0-17.0); Immature Grans, Automated 0.5 %; Lymphocytes # (A) 0.98 X 10*3/uL (0.90-5.00); Lymphocytes % (A) 5.1 %; MCH 31.8 pg (27.0-32.0); MCHC 31.7 g/dL (32.0-37.0); MCV 100.2 fL (80.0-97.0); Mean Platelet Volume 10.2 fL (9.5-12.2); Monocytes # (A) 1.11 X 10*3/uL (0.20-1.00); Monocytes % (A) 5.8 %; NRBC Per 100 WBC 0 /100 WBCS (0.0-0.0); Neutrophils # (A) 16.87 X 10*3/uL (1.80-7.70); Neutrophils % (A) 88.4 %; Platelet Count 187 X 10*3/uL (140-440); RBC 4.37 X 10*6/uL (4.40-5.60); RDW 13.3 % (11.5-14.5); WBC 19.09 X 10*3/uL (4.50-10.00)
[2021-08-14 12:03] LABS: Glucose,Whole Blood 238 mg/dL (75-99)
[2021-08-14 12:24] LABS: African American GFR (CKD) 64.1 (60.0-200.0); Anion Gap 16.7 mmol/L (10.00-18.00); BUN/Creat Ratio 18.77 Ratio (12.00-20.00); Blood Urea Nitrogen 24.4 mg/dL (9.0-27.0); Calcium 8.8 mg/dL (8.7-10.3); Carbon Dioxide 18.3 mmol/L (20.0-27.5); Non-African American GFR(CKD) 55.3 (60.0-200.0)
[2021-08-14] MEDS ORDERED: INSULIN ASPART (NovoLOG) 100 UNIT/ML VIAL SQ SCH (12:30)
== END 2021-08-14 13:28 | disposition home or self-care (01) ==
LOC: EC 14:05 → 6NMEDSUR 17:34
PROVIDERS: ADMIT Internal Medicine; ATTEND Internal Medicine
DX: E11.649 Type 2 diabetes mellitus with hypoglycemia without coma (principal); T38.3X5A Adverse effect of insulin and oral hypoglycemic [antidiabetic] drugs, initial encounter; I25.10 Atherosclerotic heart disease of native coronary artery without angina pectoris; I10 Essential (primary) hypertension; E78.5 Hyperlipidemia, unspecified; D72.829 Elevated white blood cell count, unspecified; R10.13 Epigastric pain; E66.9 Obesity, unspecified; Z68.27 Body mass index [BMI] 27.0-27.9, adult; Z79.899 Other long term (current) drug therapy; Z79.4 Long term (current) use of insulin; Z95.1 Presence of aortocoronary bypass graft; Z95.5 Presence of coronary angioplasty implant and graft; Z71.89 Other specified counseling; Z79.02 Long term (current) use of antithrombotics/antiplatelets; Z82.49 Family history of ischemic heart disease and other diseases of the circulatory system; Z80.8 Family history of malignant neoplasm of other organs or systems
CPT/HCPCS: 96376 ×3; 96372; 96375 ×3; 96365; 99284; 36415; 93005; 80053; 80048; 83690; 85025 ×2; 81001; 83036; G0378 ×2; J2270 ×3; J2765; J2405; J1650; C9113

== ENCOUNTER → 2021-09-08 | Outpatient (CLI) | payer MEDICARE ==
[2021-09-08 15:22] LABS: Chol/HDL Ratio 2.58 Ratio; LDL Cholesterol,Calculated 74.9 mg/dL (0.0-131.0); VLDL Calculation 15.22 mg/dL (5.00-40.00)
[2021-09-08 15:23] LABS: ALT 9 U/L (10-49); AST 19 U/L (14-35); African American GFR (CKD) 103.4 (60.0-200.0); Albumin 4.2 g/dL (3.8-4.9); Albumin/Globulin Ratio 1.58 (1.60-3.17); Alkaline Phosphatase 64 U/L (41-126); BUN/Creat Ratio 16.04 Ratio (12.00-20.00); Blood Urea Nitrogen 13.3 mg/dL (9.0-27.0); Calcium 9.4 mg/dL (8.7-10.3); Carbon Dioxide 26.3 mmol/L (20.0-27.5); Chloride 104 mmol/L (96-109); Globulin 2.7 g/dL (1.6-3.3); Glucose 156 mg/dL (70-110); Non-African American GFR(CKD) 89.2 (60.0-200.0); Sodium 140 mmol/L (135-145); Total Protein 6.9 g/dL (6.2-8.2)
[2021-09-08 20:27] LABS: Microalbumin Creatinine Ratio <30 mg/g Creat (0-30)
== END | disposition home or self-care (01) ==
LOC: LABWHC1 08:30
PROVIDERS: ATTEND Internal Medicine Endocrinology, Diabetes & Metabolism
DX: E10.65 Type 1 diabetes mellitus with hyperglycemia (principal)
CPT/HCPCS: 36415; 80053; 80061; 82043; 82570; 83036; 84443

== ENCOUNTER → 2021-12-07 | Outpatient (CLI) | payer MEDICARE ==
[2021-12-07 15:14] LABS: ALT 10 U/L (10-49); AST 18 U/L (14-35); African American GFR (CKD) 87.4 (60.0-200.0); Albumin 4.3 g/dL (3.8-4.9); Albumin/Globulin Ratio 1.65 (1.60-3.17); Alkaline Phosphatase 63 U/L (41-126); Blood Urea Nitrogen 16.7 mg/dL (9.0-27.0); Calcium 9.5 mg/dL (8.7-10.3); Carbon Dioxide 25.3 mmol/L (20.0-27.5); Chloride 99 mmol/L (96-109); Globulin 2.6 g/dL (1.6-3.3); Glucose 464 mg/dL (70-110); LDL Cholesterol,Calculated 70.7 mg/dL (0.0-131.0); Non-African American GFR(CKD) 75.4 (60.0-200.0); Sodium 137 mmol/L (135-145); Total Protein 6.9 g/dL (6.2-8.2)
[2021-12-08 00:14] LABS: Microalbumin Creatinine Ratio <30 mg/g Creat (0-30); Urine Creatinine 61.3 mg/dL (39.0-259.0)
== END | disposition home or self-care (01) ==
LOC: LABWHC1 09:51
PROVIDERS: ATTEND Internal Medicine Endocrinology, Diabetes & Metabolism
DX: E10.65 Type 1 diabetes mellitus with hyperglycemia (principal)
CPT/HCPCS: 36415; 80053; 80061; 82043; 82570; 83036; 84443

== ENCOUNTER → 2022-03-18 | Outpatient (CLI) | payer MEDICARE ==
--- NOTE | 2022-03-18 09:59 | MR ---
EXAMINATION TYPE: MR brain wo/w con DATE OF EXAM: 03/18/2022 9:44 AM COMPARISON: NONE HISTORY: I61.79 R51 CONTRAST: Patient received 10 mL intravenous gadolinium contrast. Multiplanar and multispin-echo imaging of the brain was performed . Pre and post contrast enhanced i mages are obtained. The ventricles, basal cisterns and sulci overlying the cerebral convexities are mildly enlarged. There is evidence of mild periventricular white matter ischemic demyelination. Remote deep white matter insults are also noted. No acute edema is seen on diffusion weighted imaging. There is no evidence for midline shift or mass effect. Acute intracranial hemorrhage or extra-axial collection is not evident. There is a focus of decrease d signal within the right frontal centrum semioval bilaterally measuring 8.2 mm as well as a smaller focus right external capsule. The findings are felt to reflect hemosiderin deposition from nonacute h emorrhage. No enhancing lesions are seen. Right temporal parietal venous angioma. The paranasal sinuses and mastoid air cells are well-aerated. IMPRESSION: 1. 2 foci of hemosiderin deposition right frontal and right external capsule locations compatible wit h tendinosis with hemosiderin deposition from nonacute parenchymal hemorrhage. No acute intracranial hemorrhage is seen. 2. Right temporal parietal venous angioma 3. Age-related atrophic and chronic small vessel ischemic change. No acute intracranial process at t his time.
--- NOTE | 2022-03-18 11:35 | MR ---
EXAMINATION TYPE: MR angio head wo con DATE OF EXAM: 03/18/2022 9:43 AM COMPARISON: NONE HISTORY: I61.79 R51 Three-dimensional [id number] intracranial MRA was performed with multiple intensity projection im ages submitted and source data reviewed at the workstation. The vertebrobasilar system as well as intracranial portions of the internal carotid arteries and thei r major tributaries are patent. I do not see evidence for sizable aneurysm or vascular malformation. IMPRESSION: Normal study.
== END | disposition home or self-care (01) ==
LOC: RADMRIMAIN 08:42
PROVIDERS: ATTEND Psychiatry & Neurology Neurology
DX: I61.9 Nontraumatic intracerebral hemorrhage, unspecified (principal); Q28.3 Other malformations of cerebral vessels; G31.1 Senile degeneration of brain, not elsewhere classified; I67.82 Cerebral ischemia
CPT/HCPCS: 70544; 70553; A9585

== ENCOUNTER → 2022-04-03 | Outpatient (CLI) | payer MEDICARE ==
[2022-04-03 19:18] LABS: ALT 9 U/L (10-49); AST 13 U/L (14-35); African American GFR (CKD) 104.2 (60.0-200.0); Albumin 4.2 g/dL (3.8-4.9); Albumin/Globulin Ratio 1.75 (1.60-3.17); Alkaline Phosphatase 57 U/L (41-126); BUN/Creat Ratio 15.63 Ratio (12.00-20.00); Blood Urea Nitrogen 12.5 mg/dL (9.0-27.0); Calcium 9.2 mg/dL (8.7-10.3); Carbon Dioxide 26.8 mmol/L (20.0-27.5); Chloride 103 mmol/L (96-109); Chol/HDL Ratio 2.18 Ratio; Globulin 2.4 g/dL (1.6-3.3); Glucose 201 mg/dL (70-110); LDL Cholesterol,Calculated 66.2 mg/dL (0.0-131.0); Non-African American GFR(CKD) 89.9 (60.0-200.0); Sodium 140 mmol/L (135-145); Total Protein 6.6 g/dL (6.2-8.2)
[2022-04-03 19:38] LABS: Microalbumin Creatinine Ratio <30 mg/g Creat (0-30)
== END | disposition home or self-care (01) ==
LOC: LABWHC1 10:00
PROVIDERS: ATTEND Internal Medicine Endocrinology, Diabetes & Metabolism
DX: E10.65 Type 1 diabetes mellitus with hyperglycemia (principal)
CPT/HCPCS: 36415; 80053; 80061; 82043; 82570; 83036; 84443

== ENCOUNTER → 2022-10-06 | Outpatient (CLI) | payer MEDICARE ==
[2022-10-06 16:50] LABS: ALT 18 U/L (10-49); AST 19 U/L (14-35); African American GFR (CKD) 102.2 (60.0-200.0); Albumin 4.2 g/dL (3.8-4.9); Albumin/Globulin Ratio 1.85 (1.60-3.17); Alkaline Phosphatase 62 U/L (41-126); BUN/Creat Ratio 16.87 Ratio (12.00-20.00); Blood Urea Nitrogen 13.9 mg/dL (9.0-27.0); Calcium 9.3 mg/dL (8.7-10.3); Carbon Dioxide 28.5 mmol/L (20.0-27.5); Chloride 105 mmol/L (96-109); Globulin 2.3 g/dL (1.6-3.3); Glucose 112 mg/dL (70-110); LDL Cholesterol,Calculated 68.9 mg/dL (0.0-131.0); Non-African American GFR(CKD) 88.2 (60.0-200.0); Sodium 142 mmol/L (135-145); Total Protein 6.5 g/dL (6.2-8.2); VLDL Calculation 12.36 mg/dL (5.00-40.00)
== END | disposition home or self-care (01) ==
LOC: LABWHC1 07:55
PROVIDERS: ATTEND Internal Medicine Endocrinology, Diabetes & Metabolism
DX: E10.65 Type 1 diabetes mellitus with hyperglycemia (principal)
CPT/HCPCS: 36415; 80053; 80061; 82043; 82570; 83036; 84481

== ENCOUNTER → 2023-04-12 | Outpatient (CLI) | payer MEDICARE ==
[2023-04-12 16:15] LABS: ALT 14 U/L (10-49); AST 16 U/L (14-35); Albumin 4.3 g/dL (3.8-4.9); Albumin/Globulin Ratio 1.87 Ratio (1.60-3.17); Alkaline Phosphatase 57 U/L (41-126); BUN/Creat Ratio 17.25 Ratio (12.00-20.00); Blood Urea Nitrogen 13.8 mg/dL (9.0-27.0); Calcium 9.7 mg/dL (8.7-10.3); Carbon Dioxide 27.8 mmol/L (21.6-31.8); Chloride 102 mmol/L (96-109); Chol/HDL Ratio 2.45 Ratio; Globulin 2.3 g/dL (1.6-3.3); Glucose 223 mg/dL (70-110); LDL Cholesterol,Calculated 80.9 mg/dL (0.0-131.0); Potassium 5.4 mmol/L (3.5-5.5); Sodium 139 mmol/L (135-145); Total Protein 6.6 g/dL (6.2-8.2); VLDL Calculation 12.62 mg/dL (5.00-40.00)
[2023-04-12 17:46] LABS: Microalbumin Creatinine Ratio <12 mg/g Cr (0-30); Urine Creatinine 99.4 mg/dL (39.0-259.0)
== END | disposition home or self-care (01) ==
LOC: LABWHC1 08:13
PROVIDERS: ATTEND Internal Medicine Endocrinology, Diabetes & Metabolism
DX: E10.65 Type 1 diabetes mellitus with hyperglycemia (principal)
CPT/HCPCS: 36415; 80053; 80061; 82043; 82570; 83036; 84443

== ENCOUNTER 2023-07-13 10:26 | Emergency (ER) | payer MEDICARE ==
[2023-07-13 10:39] VITALS: RESP 18; TEMP 98.1
--- NOTE | 2023-07-13 10:48 | ED ---
Lower Extremity Injury HPI - General Chief Complaint: Extremity Injury, Lower Stated Complaint: L Foot Injury Time Seen by Provider: 07/13/23 10:31 Source: patient, RN notes reviewed Mode of arrival: ambulatory Limitations: no limitations - History of Present Illness Initial Comments: This is a 72-year-old male who presents to the emergency department for a left foot injury. Patient is a type 1 diabetic and states that 1.5 weeks ago he smashed his left four small toes on a dresser. He feels like the pain has started to improve, other than occasional irritation. There are no open wounds on the foot or toes. States that his shoes are also causing it to be irritated and a couple of the toes are still swollen. Patient states that due to being diabetic he is concerned and wanted to have it evaluated. He has not noticed any redness, warmth, or drainage. MD Complaint: foot injury - Related Data Home Medications Medication Instructions Recorded Confirmed Enalapril [Vasotec] 10 mg PO HS 02/08/17 08/13/21 Insulin Glargine [Lantus Vial] 25 unit SQ BID 02/08/17 08/13/21 Isosorbide Mononitrate ER [Imdur] 60 mg PO DAILY 02/08/17 08/13/21 Metoprolol Tartrate [Lopressor] 50 mg PO HS 02/08/17 08/13/21 Ranolazine [Ranexa] 500 mg PO BID 04/18/19 08/13/21 Atorvastatin [Lipitor] 80 mg PO HS 01/28/20 08/13/21 Glucagon Emergency Kit 1 mg IM ONCE PRN 08/13/21 08/13/21 Previous Rx's Medication Instructions Recorded Clopidogrel [Plavix] 75 mg PO DAILY #90 tab 11/16/18 Allergies Allergy/AdvReac Type Severity Reaction Status Date / Time No Known Allergies Allergy Verified 08/13/21 16:39 Review of Systems ROS Statement: Those systems with pertinent positive or pertinent negative responses have been documented in the HPI. ROS Other: All systems not noted in ROS Statement are negative. Past Medical History Past Medical History: Coronary Artery Disease (CAD), Diabetes Mellitus, Hyperlipidemia, Hypertension, Musculoskeletal Disorder Additional Past Medical History / Comment(s): left shoulder fx and torn rotator cuff shoulder History of Any Multi-Drug Resistant Organisms: None Reported Past Surgical History: Coronary Bypass/CABG, Heart Catheterization, Heart Catheterization With Stent, Orthopedic Surgery Additional Past Surgical History / Comment(s): cabg x4 1999, left rotator cuff repair, 3 cardiac stents Past Anesthesia/Blood Transfusion Reactions: No Reported Reaction Date of Last Stent Placement:: 03/06/17 Past Psychological History: No Psychological Hx Reported Smoking Status: Never smoker Past Alcohol Use History: Rare Past Drug Use History: None Reported - Past Family History Mother Family Medical History: Cancer Additional Family Medical History / Comment(s): skin Father Family Medical History: Coronary Artery Disease (CAD) General Exam Limitations: no limitations General appearance: alert, in no apparent distress Head exam: Present: atraumatic, normocephalic, normal inspection Respiratory exam: Present: normal lung sounds bilaterally. Absent: respiratory distress, wheezes, rales, rhonchi, stridor Cardiovascular Exam: Present: regular rate, normal rhythm, normal heart sounds. Absent: systolic murmur, diastolic murmur, rubs, gallop, clicks Extremities exam: Present: other (Minor swelling and tenderness to the left fourth toe. No open wounds, erythema, or warmth. Full range of motion of all 5 toes.) Neurological exam: Present: alert, oriented X3, CN II-XII intact Psychiatric exam: Present: normal affect, normal mood Course Vital Signs 07/13/23 07/13/23 10:28 11:29 Temperature 98.1 F 98.1 F Pulse Rate 61 60 Respiratory 18 18 Rate Blood Pressure 176/90 154/80 O2 Sat by Pulse 98 98 Oximetry Medical Decision Making - Medical Decision Making This is a 72 year old male who presents to the emergency department for a left foot injury. Was pt. sent in by a medical professional or institution? @ -No Did you speak to anyone other than the patient for history? @ -No Did you review nursing and triage notes? @ -Yes, and I agree, it is accurate with regards to the patient's symptoms. Were old charts reviewed? @ -No Differential Diagnosis? @ -Differential Musculoskeletal: Muscular strain, contusion, ligament sprain, fracture, arthritis, septic arthritis, bursitis, cellulitis, muscle spasm, nerve compression, DVT, arterial occlusion, herpes zoster, electrolyte abnormality, tumor.... This is not meant to be in all inclusive list EKG interpreted by me (3pts min.)? @ -Not obtained X-rays interpreted by me (1pt min.)? @ -X-ray of the left foot obtained. My interpretation identifies no acute fractures. CT interpreted by me (1pt min.)? @ -Not obtained U/S interpreted by me (1pt. min.)? @ -Not obtained What testing was considered but not performed? (CT, X-rays, U/S, labs)? Why? @ -None What meds were considered but not given? Why? @ -None Did you discuss the management of the patient with other professionals? @ -No Did you reconcile home meds? @ -No Was smoking cessation discussed for >3mins.? @ -No Was critical care preformed (if so, how long)? @ -No Were there social determinants of health that impacted care today? How? (Homelessness, low income, unemployed, alcoholism, drug addiction, transportation, low edu. Level, literacy, decrease access to med. care, long-term, rehab)? @ -No Was there de-escalation of care discussed even if they declined? (Discuss DNR or withdrawal of care, Hospice)? @ -No What co-morbidities impacted this encounter? (DM, HTN, Smoking, COPD, CAD, Cancer, CVA, Hep., AIDS, mental health diagnosis, sleep apnea, morbid obesity)? @ -DM Was patient admitted / discharged? @ -Discharged. Patient has some mild swelling to the left fourth toe without any open wounds, redness, warmth, or drainage. X-ray of the left foot obtained demonstrating no acute process. Discussed with the patient that there are not currently any signs of infection due to the lack of wounds, redness, warmth, and drainage, and no antibiotics are indicated at this time. Other than the mild swelling, the physical examination is unremarkable. Patient discharged home in stable condition. Undiagnosed new problem with uncertain prognosis? @ -None Drug Therapy requiring intensive monitoring for toxicity (Heparin, Nitro, Insulin, Cardizem)? @ -None Were any procedures done? @ -None Diagnosis/symptom? @ -Left foot injury Acute, or Chronic, or Acute on Chronic? @ -Acute Uncomplicated (without systemic symptoms) or Complicated (systemic symptoms)? @ -Uncomplicated Side effects of treatment? @ -None Exacerbation, Progression, or Severe Exacerbation] @ -Not applicable Poses a threat to life or bodily function? @ -No Return precautions reviewed in depth, the patient is instructed to return to the emergency department with any new, worsening, or concerning symptoms. Patient verbalized understanding. This case was discussed in detail with the attending ED physician, Dr. Elmore. Presentation, findings, and treatment plan discussed in detail as well. - Radiology Data Radiology results: report reviewed, image reviewed Disposition Clinical Impression: Injury of left foot Disposition: HOME SELF-CARE Instructions (If sedation given, give patient instructions): Foot Contusion (E D) Additional Instructions: Return to the emergency department with any new, worsening, or concerning symptoms. You can apply antibiotic ointment to any areas you may be concerned are becoming infected. follow up with your primary care provider in 1-2 days. Is patient prescribed a controlled substance at d/c from ED?: No Referrals: Marisol Davalos MD [Primary Care Provider] - 1-2 days Time of Disposition: 11:21
--- NOTE | 2023-07-13 11:09 | XR ---
EXAMINATION TYPE: XR foot complete 3 views LT DATE OF EXAM: 07/13/2023 Comparison: 11/07/2019 Clinical History: 72-year-old male with pain after injury Findings: Mild degenerative change of the first MTP joint with some joint space narrowing and sclerosis. Small plantar heel spur. Tiny density at the dorsal talar head appears unchanged suggesting a chronic findi ng. Some questionable lateral hindfoot soft tissue swelling. No acute fracture, subluxation, dislocat ion is seen. Impression: Question lateral hindfoot soft tissue swelling. No acute osseous abnormality is seen.
[2023-07-13 11:47] VITALS: BP 154/80; PULSE 60
== END 2023-07-13 11:30 | disposition home or self-care (01) ==
LOC: EC 10:26
DX: S99.922A Unspecified injury of left foot, initial encounter (principal); E10.9 Type 1 diabetes mellitus without complications; I10 Essential (primary) hypertension; I25.10 Atherosclerotic heart disease of native coronary artery without angina pectoris; E78.5 Hyperlipidemia, unspecified; Z95.1 Presence of aortocoronary bypass graft; Z95.5 Presence of coronary angioplasty implant and graft; Z79.899 Other long term (current) drug therapy; W22.8XXA Striking against or struck by other objects, initial encounter
CPT/HCPCS: 99283

== ENCOUNTER 2024-05-18 14:54 | Observation (INO) | payer MEDICARE ==
--- NOTE | 2024-05-18 15:18 | ED ---
General Adult HPI - General Chief complaint: Back Pain/Injury Stated complaint: upper back pain Time Seen by Provider: 05/18/24 15:04 Source: patient, RN notes reviewed Mode of arrival: ambulatory Limitations: no limitations - History of Present Illness Initial comments: Patient is a 73-year-old male present to the emergency department with thoracic back pain. Symptoms have been occurring since yesterday. Discomfort is more constant since yesterday and a little bit worse however remains somewhat mild overall. Discomfort is difficult to describe but is mostly like an ache. Patient denies any chest pain. No associated dyspnea, nausea, or diaphoresis. No increased discomfort with position changes or deep breaths. Patient does have concern that previous heart conditions have been similar to this including previous CABG and previous stents. Patient did attempt nitroglycerin with minimal improvement - Related Data Home Medications Medication Instructions Recorded Confirmed Enalapril [Vasotec] 10 mg PO HS 02/08/17 08/13/21 Insulin Glargine [Lantus Vial] 25 unit SQ BID 02/08/17 08/13/21 Isosorbide Mononitrate ER [Imdur] 60 mg PO DAILY 02/08/17 08/13/21 Metoprolol Tartrate [Lopressor] 50 mg PO HS 02/08/17 08/13/21 Ranolazine [Ranexa] 500 mg PO BID 04/18/19 08/13/21 Atorvastatin [Lipitor] 80 mg PO HS 01/28/20 08/13/21 Glucagon Emergency Kit 1 mg IM ONCE PRN 08/13/21 08/13/21 Previous Rx's Medication Instructions Recorded Clopidogrel [Plavix] 75 mg PO DAILY #90 tab 11/16/18 Allergies Allergy/AdvReac Type Severity Reaction Status Date / Time No Known Allergies Allergy Verified 05/18/24 14:58 Review of Systems ROS Statement: Those systems with pertinent positive or pertinent negative responses have been documented in the HPI. ROS Other: All systems not noted in ROS Statement are negative. Constitutional: Denies: fever Eyes: Denies: eye pain ENT: Denies: ear pain Cardiovascular: Denies: chest pain Endocrine: Denies: fatigue Gastrointestinal: Denies: abdominal pain Musculoskeletal: Reports: as per HPI, back pain Past Medical History Past Medical History: Coronary Artery Disease (CAD), Diabetes Mellitus, Hyperlipidemia, Hypertension, Musculoskeletal Disorder Additional Past Medical History / Comment(s): left shoulder fx and torn rotator cuff shoulder History of Any Multi-Drug Resistant Organisms: None Reported Past Surgical History: Coronary Bypass/CABG, Heart Catheterization, Heart Catheterization With Stent, Orthopedic Surgery Additional Past Surgical History / Comment(s): cabg x4 1999, left rotator cuff repair, 3 cardiac stents Past Anesthesia/Blood Transfusion Reactions: No Reported Reaction Date of Last Stent Placement:: 03/06/17 Past Psychological History: No Psychological Hx Reported Smoking Status: Never smoker Past Alcohol Use History: Rare Past Drug Use History: None Reported - Past Family History Mother Family Medical History: Cancer Additional Family Medical History / Comment(s): skin Father Family Medical History: Coronary Artery Disease (CAD) General Exam Limitations: no limitations General appearance: alert, in no apparent distress Head exam: Present: normocephalic Eye exam: Present: normal appearance Neck exam: Present: normal inspection Respiratory exam: Present: normal lung sounds bilaterally. Absent: chest wall tenderness Cardiovascular Exam: Present: regular rate, normal rhythm, normal heart sounds Expanded Peripheral pulses: 2+: Radial (R), Radial (L), Posterior Tibialis (R), Posterior Tibialis (L), Dorsalis Pedis (R), Dorsalis Pedis (L) GI/Abdominal exam: Present: soft. Absent: distended, tenderness, pulsatile mass Extremities exam: Present: normal inspection. Absent: pedal edema, calf tenderness Back exam: Present: normal inspection. Absent: tenderness Neurological exam: Present: alert Psychiatric exam: Present: normal affect, normal mood Skin exam: Present: normal color Course Vital Signs 05/18/24 05/18/24 05/18/24 14:58 16:37 17:27 Temperature 98.1 F 98.1 F Pulse Rate 58 L 54 L 51 L Respiratory 18 18 18 Rate Blood Pressure 155/82 161/85 120/69 O2 Sat by Pulse 99 97 96 Oximetry EKG Findings - EKG Results: EKG: interpreted by ERMD, sinus rhythm, normal axis, normal QRS, normal ST/T EKG shows: bradycardia Medical Decision Making - Medical Decision Making Was pt. sent in by a medical professional or institution (, PA, HELICOPTER PILOT INSTRUCTOR, urgent care, hospital, or shelter...) When possible be specific @ -No Did you speak to anyone other than the patient for history (EMS, parent, family, police, friend...)? What history was obtained from this source @ -No Did you review nursing and triage notes (agree or disagree)? Why? @ -I reviewed and agree with nursing and triage notes Were old charts reviewed (outside hosp., previous admission, EMS record, old EKG, old radiological studies, urgent care reports/EKG's, shelter records)? Report findings @ -No old charts were reviewed Differential Diagnosis (chest pain, altered mental status, abdominal pain women, abdominal pain men, vaginal bleeding, weakness, fever, dyspnea, syncope, headache, dizziness, GI bleed, back pain, seizure, CVA, palpatations, mental health, musculoskeletal)? @ -Differential Back Pain: Strain, zoster, cauda equina syndrome, epidural abscess, vertebral osteomyelitis, discitis, fracture, subluxation, disc herniation, DJD, spinal stenosis, dissection, AAA, pancreatitis, peptic ulcer disease, pyelonephritis, kidney stone, this is not meant to be an all-inclusive list. EKG interpreted by me (3pts min.). @ -As above X-rays interpreted by me (1pt min.). @ -Chest x-ray shows hiatal hernia CT interpreted by me (1pt min.). @ -None done U/S interpreted by me (1pt. min.). @ -None done What testing was considered but not performed or refused? (CT, X-rays, U/S, labs)? Why? @ -None What meds were considered but not given or refused? Why? @ -None Did you discuss the management of the patient with other professionals (professionals i.e. , PA, HELICOPTER PILOT INSTRUCTOR, lab, RT, psych nurse, social work supervisor, clinical operations specialist, teacher, commissary officer, case repairer)? Give summary @ -Case discussed with Dr. Cruz who will admit covering Dr. Mohr Was smoking cessation discussed for >3mins.? @ -No Was critical care preformed (if so, how long)? @ -No Were there social determinants of health that impacted care today? How? (Homelessness, low income, unemployed, alcoholism, drug addiction, transportation, low edu. Level, literacy, decrease access to med. care, long-term, rehab)? @ -No Was there de-escalation of care discussed even if they declined (Discuss DNR or withdrawal of care, Hospice)? DNR status @ -No What co-morbidities impacted this encounter? (DM, HTN, Smoking, COPD, CAD, Cancer, CVA, ARF, Chemo, Hep., AIDS, mental health diagnosis, sleep apnea, morbid obesity)? @ -History of cardiac disease with similar symptoms Was patient admitted / discharged? Hospital course, mention meds given and route, prescriptions, significant lab abnormalities, going to OR and other pertinent info. @ -Patient presents with back pain with concern for cardiac disease as he has had this 4 times previously. Initial evaluation unremarkable. Patient feels slightly better with Nitropaste. Patient also adds his symptoms got slightly worse with exertion while walking to the restroom. Patient resting comfortably in the bed at this time. Patient is updated on results and plan. [place] orders written Undiagnosed new problem with uncertain prognosis? @ -No Drug Therapy requiring intensive monitoring for toxicity (Heparin, Nitro, Insulin, Cardizem)? @ -No Were any procedures done? @ -No Diagnosis/symptom? @ -Back pain Acute, or Chronic, or Acute on Chronic? @ -Acute Uncomplicated (without systemic symptoms) or Complicated (systemic symptoms)? @ -Default Side effects of treatment? @ -No Exacerbation, Progression, or Severe Exacerbation? @ -No Poses a threat to life or bodily function? How? (Chest pain, USA, ME, pneumonia, PE, COPD, DKA, ARF, appy, cholecystitis, CVA, Diverticulitis, Homicidal, Suicidal, threat to staff... and all critical care pts) @ -Threat to cardiac function - Lab Data Result diagrams: 05/18/24 15:35 05/18/24 15:35 Lab Results 05/18/24 05/18/24 05/18/24 Range/Units 15:35 15:35 15:35 WBC 7.0 (3.8-10.6) k/uL RBC 4.46 (4.30-5.90) m/uL Hgb 14.5 (13.0-17.5) gm/dL Hct 43.2 (39.0-53.0) % MCV 96.9 (80.0-100.0) fL MCH 32.5 (25.0-35.0) pg MCHC 33.5 (31.0-37.0) g/dL RDW 12.3 (11.5-15.5) % Plt Count 173 (150-450) k/uL MPV 7.7 Neutrophils % 66 % Lymphocytes % 24 % Monocytes % 5 % Eosinophils % 2 % Basophils % 0 % Neutrophils # 4.6 (1.3-7.7) k/uL Lymphocytes # 1.7 (1.0-4.8) k/uL Monocytes # 0.4 (0-1.0) k/uL Eosinophils # 0.2 (0-0.7) k/uL Basophils # 0.0 (0-0.2) k/uL PT 11.8 (10.0-12.5) sec INR 1.1 (<1.2) APTT 25.9 (22.0-30.0) sec D-Dimer <0.17 (<0.60) mg/L FEU Sodium 138 (137-145) mmol/L Potassium 4.8 (3.5-5.1) mmol/L Chloride 104 (98-107) mmol/L Carbon Dioxide 30 (22-30) mmol/L Anion Gap 4 mmol/L BUN 21 H (9-20) mg/dL Creatinine 0.78 (0.66-1.25) mg/dL Est GFR (CKD-EPI)AfAm >90 (>60 ml/min/1.73 sqM) Est GFR (CKD-EPI)NonAf 90 (>60 ml/min/1.73 sqM) Glucose 337 H (74-99) mg/dL Calcium 9.3 (8.4-10.2) mg/dL Magnesium 1.9 (1.6-2.3) mg/dL Total Bilirubin 0.6 (0.2-1.3) mg/dL AST 20 (17-59) U/L ALT 17 (4-49) U/L Alkaline Phosphatase 56 (38-126) U/L Troponin I (0.000-0.034) ng/mL Total Protein 6.2 L (6.3-8.2) g/dL Albumin 3.9 (3.5-5.0) g/dL Amylase 41 (30-110) U/L Lipase 25 (23-300) U/L 05/18/24 Range/Units 15:35 WBC (3.8-10.6) k/uL RBC (4.30-5.90) m/uL Hgb (13.0-17.5) gm/dL Hct (39.0-53.0) % MCV (80.0-100.0) fL MCH (25.0-35.0) pg MCHC (31.0-37.0) g/dL RDW (11.5-15.5) % Plt Count (150-450) k/uL MPV Neutrophils % % Lymphocytes % % Monocytes % % Eosinophils % % Basophils % % Neutrophils # (1.3-7.7) k/uL Lymphocytes # (1.0-4.8) k/uL Monocytes # (0-1.0) k/uL Eosinophils # (0-0.7) k/uL Basophils # (0-0.2) k/uL PT (10.0-12.5) sec INR (<1.2) APTT (22.0-30.0) sec D-Dimer (<0.60) mg/L FEU Sodium (137-145) mmol/L Potassium (3.5-5.1) mmol/L Chloride (98-107) mmol/L Carbon Dioxide (22-30) mmol/L Anion Gap mmol/L BUN (9-20) mg/dL Creatinine (0.66-1.25) mg/dL Est GFR (CKD-EPI)AfAm (>60 ml/min/1.73 sqM) Est GFR (CKD-EPI)NonAf (>60 ml/min/1.73 sqM) Glucose (74-99) mg/dL Calcium (8.4-10.2) mg/dL Magnesium (1.6-2.3) mg/dL Total Bilirubin (0.2-1.3) mg/dL AST (17-59) U/L ALT (4-49) U/L Alkaline Phosphatase (38-126) U/L Troponin I <0.012 (0.000-0.034) ng/mL Total Protein (6.3-8.2) g/dL Albumin (3.5-5.0) g/dL Amylase (30-110) U/L Lipase (23-300) U/L Disposition Clinical Impression: Back pain Disposition: ADMITTED IP TO THIS HOSP Is patient prescribed a controlled substance at d/c from ED?: No Referrals: Marisol Davalos MD [Primary Care Provider] - 1-2 days Time of Disposition: 17:43
[2024-05-18] MEDS: NITROGLYCERIN OINT 1 INCH/GM PACKET TOPICAL STA (15:40)
[2024-05-18] MEDS: ASPIRIN 81 MG PO STA (15:40)
[2024-05-18 15:47] LABS: Basophils % (A) 0 %; Eosinophils # (A) 0.2 k/uL (0-0.7); Eosinophils % (A) 2 %; HCT 43.2 % (39.0-53.0); HGB 14.5 gm/dL (13.0-17.5); Lymphocytes # (A) 1.7 k/uL (1.0-4.8); Lymphocytes % (A) 24 %; MCH 32.5 pg (25.0-35.0); MCHC 33.5 g/dL (31.0-37.0); MCV 96.9 fL (80.0-100.0); Mean Platelet Volume 7.7; Monocytes # (A) 0.4 k/uL (0-1.0); Monocytes % (A) 5 %; Neutrophils # (A) 4.6 k/uL (1.3-7.7); Neutrophils % (A) 66 %; Platelet Count 173 k/uL (150-450); RBC 4.46 m/uL (4.30-5.90); RDW 12.3 % (11.5-15.5)
[2024-05-18 15:57] LABS: ALT 17 U/L (4-49); AST 20 U/L (17-59); African American GFR (CKD) >90 (>60 ml/min/1.73 sqM); Albumin 3.9 g/dL (3.5-5.0); Alkaline Phosphatase 56 U/L (38-126); Amylase 41 U/L (30-110); Anion Gap 4 mmol/L; Blood Urea Nitrogen 21 mg/dL (9-20); Calcium 9.3 mg/dL (8.4-10.2); Carbon Dioxide 30 mmol/L (22-30); Chloride 104 mmol/L (98-107); Glucose 337 mg/dL (74-99); Lipase 25 U/L (23-300); Magnesium 1.9 mg/dL (1.6-2.3); Non-African American GFR(CKD) 90 (>60 ml/min/1.73 sqM); Potassium 4.8 mmol/L (3.5-5.1); Sodium 138 mmol/L (137-145); Total Bilirubin 0.6 mg/dL (0.2-1.3); Total Protein 6.2 g/dL (6.3-8.2)
[2024-05-18 16:02] LABS: INR 1.1 (<1.2); Partial Thromboplastin Time 25.9 sec (22.0-30.0); Prothrombin Time 11.8 sec (10.0-12.5)
--- NOTE | 2024-05-18 17:00 | XR ---
EXAMINATION TYPE: XR chest 2V DATE OF EXAM: 05/18/2024 4:31 PM COMPARISON: Chest radiographs from 02/24/2020 CLINICAL INDICATION: Male, 73 years old with history of Chest Pain; TECHNIQUE: XR chest 2V Frontal and lateral views of the chest. FINDINGS: Lungs/Pleura: There is no evidence of pleural effusion, focal consolidation, or pneumothorax. Pulmonary vascularity: Unremarkable. Heart/mediastinum: Cardiomediastinal silhouette is unremarkable. Atrial septal defect occlusion devic e present. Musculoskeletal: No acute osseous pathology. Midline sternotomy wires are noted. IMPRESSION: 1. No acute cardiopulmonary disease/process. 2. Hiatal hernia. [facility], , 05/18/2024 4:58 PM
[2024-05-18] MEDS ORDERED: NITROGLYCERIN SL TABS 0.4 MG TAB SUBLINGUAL PRN (17:43)
[2024-05-18] MEDS ORDERED: ALBUTEROL NEBULIZED 2.5 MG/3 ML INHALATION PRN (18:59)
[2024-05-18] MEDS ORDERED: DEXTROSE 50% SYRINGE 50 ML IVP PRN ×2 (20:01)
[2024-05-18] MEDS: lisinopriL 10 MG TAB PO SCH (20:33)
[2024-05-18] MEDS: RANOLAZINE 500 MG TAB.ER.12H PO SCH (20:33)
[2024-05-18] MEDS: METOPROLOL TARTRATE 25 MG TAB PO SCH (20:33)
[2024-05-18] MEDS: ATORVASTATIN 80 MG TAB PO SCH (20:33)
[2024-05-18 21:21] LABS: Glucose,Whole Blood 329 mg/dL (70-110)
[2024-05-18] MEDS: INSULIN ASPART (NovoLOG) 100 UNIT/ML VIAL SQ SCH (22:24)
[2024-05-18] MEDS: NITROGLYCERIN OINT 1 INCH/GM PACKET TOPICAL SCH (22:24)
--- NOTE | 2024-05-19 01:31 | P.HPIM ---
History of Present Illness H&P Date: 05/18/24 73 year old male with CAD s/p CABG patient coming in with thoracic back pain , he was concerned this could be a heart attack as the pain is similar to what he experienced when he suddenly required a CABG when he had a heart attack. patient denies any associated dizziness, SOB, nausea , vomiting, cough, . patient denies any recent hospital stay , travel, or blood clots review of systems Pertinent positives as noted in HPI. All other systems were reviewed and are negative on exam Constitutional: No acute distress, conversant, pleasant Eyes: Anicteric sclerae, moist conjunctiva, Pupils equal round reactive to light ENMT: NC/AT Oropharynx clear, no erythema, or exudates Neck: Supple, no masses, or JVD No carotid bruits No thyromegaly Lungs: Clear to auscultation Clear to percussion Normal respiratory effort, no accessory muscle use Cardiovascular: Heart regular in rate and rhythm, No murmurs, gallops, or rubs No peripheral edema Abdominal: Soft Nontender, no guarding, rebound or rigidity Abdomen moving with respiration Normoactive bowel sounds Extremities: no point tenderness over thoracic spine , No digital cyanosis No clubbing Pedal pulses intact and symmetrical Radial pulses intact and symmetrical No calf tenderness Psychiatric: Alert and oriented to person, place and time Appropriate affect Neuro Muscles Strength 5/5 in all 4 extremities Sensation to light touch grossly present throughout Cranial nerves II-XII grossly intact Past Medical History Past Medical History: Coronary Artery Disease (CAD), Diabetes Mellitus, Hyperlipidemia, Hypertension, Musculoskeletal Disorder Additional Past Medical History / Comment(s): left shoulder fx and torn rotator cuff shoulder History of Any Multi-Drug Resistant Organisms: None Reported Past Surgical History: Coronary Bypass/CABG, Heart Catheterization, Heart Catheterization With Stent, Orthopedic Surgery Additional Past Surgical History / Comment(s): cabg x4 1999, left rotator cuff repair, 3 cardiac stents Past Anesthesia/Blood Transfusion Reactions: No Reported Reaction Date of Last Stent Placement:: 03/06/17 Past Psychological History: No Psychological Hx Reported Smoking Status: Never smoker Past Alcohol Use History: Rare Past Drug Use History: None Reported - Past Family History Mother Family Medical History: Cancer Additional Family Medical History / Comment(s): skin Father Family Medical History: Coronary Artery Disease (CAD) Medications and Allergies Home Medications Medication Instructions Recorded Confirmed Type Enalapril [Vasotec] 15 mg PO HS 02/08/17 05/18/24 History Isosorbide Mononitrate ER [Imdur] 60 mg PO DAILY 02/08/17 05/18/24 History Clopidogrel [Plavix] 75 mg PO DAILY #90 tab 11/16/18 05/18/24 Rx Ranolazine [Ranexa] 500 mg PO BID 04/18/19 05/18/24 History Atorvastatin [Lipitor] 80 mg PO HS 01/28/20 05/18/24 History Glucagon Emergency Kit 1 mg IM ONCE PRN 08/13/21 05/18/24 History Albuterol Inhaler [Ventolin Hfa 2 puff INHALATION RT-Q4H PRN 05/18/24 05/18/24 History Inhaler] INSULIN ASPART (NovoLOG) [NovoLOG See Protocol SQ TID-W/MEALS 05/18/24 05/18/24 History (formulary)] Insulin Glargine,Hum.rec.anlog 50 units SQ DAILY 05/18/24 05/18/24 History [Toujeo Max Solostar] Metoprolol Tartrate [Lopressor] 25 mg PO BID 05/18/24 05/18/24 History Nitroglycerin Sl Tabs [Nitrostat] 0.4 mg SUBLINGUAL Q5M PRN 05/18/24 05/18/24 History Allergies Allergy/AdvReac Type Severity Reaction Status Date / Time No Known Allergies Allergy Verified 05/18/24 18:28 Physical Exam Vitals: Vital Signs Temp Pulse Resp BP Pulse Ox 05/18/24 21:00 68 18 138/68 97 05/18/24 20:00 65 18 140/85 98 05/18/24 18:39 98 F 54 L 18 127/73 96 05/18/24 17:27 98.1 F 51 L 18 120/69 96 05/18/24 16:37 54 L 18 161/85 97 05/18/24 14:58 98.1 F 58 L 18 155/82 99 Intake and Output 05/18/24 05/18/24 05/18/24 06:59 14:59 22:59 Other: Weight 97.069 kg Results CBC & Chem 7: 05/18/24 15:35 05/18/24 15:35 Labs: Abnormal Lab Results - Last 24 Hours (Table) 05/18/24 Range/Units 15:35 BUN 21 H (9-20) mg/dL Glucose 337 H (74-99) mg/dL Total Protein 6.2 L (6.3-8.2) g/dL Assessment and Plan Assessment: 73 year old male with CAD s/p CABG, DM , coming in due to thoracic back pain , I discussed the case with ED doc and I accepted the admission for cardiac workup Thoracic back pain rule out ACS Trops negative continue to trend EKG no ST changes cardiology consult ASA 81 mg daily continue statin check lipid panel nitro PRN for chest pain DM resume levemir insulin sliding scale Hypertension resume home BP meds full code DVT PPX lovenox 40 mg sc daily blood work overall unremarkable Na 138 K 4.8 BUN 21 , Cr 0.78 WBC 7 Hgb 14.5 unremarkable
[2024-05-19 05:44] LABS: Glucose,Whole Blood 201 mg/dL (70-110)
[2024-05-19] MEDS ORDERED: ASPIRIN 325 MG TAB PO SCH (09:00)
[2024-05-19 09:11] LABS: Chol/HDL Ratio 2.55 Ratio; LDL Cholesterol,Calculated 63.5 mg/dL (0.0-131.0); VLDL Calculation 16.22 mg/dL (5.00-40.00)
[2024-05-19] MEDS: ENOXAPARIN 40 MG/0.4 ML SYRINGE SQ SCH (09:42)
[2024-05-19] MEDS: ASPIRIN 81 MG PO SCH (09:45)
[2024-05-19] MEDS: CLOPIDOGREL 75 MG TAB PO SCH (09:45)
[2024-05-19] MEDS ORDERED: ALPRAZolam 0.25 MG TAB PO PRN (09:48)
[2024-05-19] MEDS ORDERED: NITROGLYCERIN SL TABS 0.4 MG TAB SUBLINGUAL PRN ×2 (09:48→13:09)
[2024-05-19] MEDS ORDERED: ALPRAZolam 0.5 MG TAB PO PRN (09:48)
[2024-05-19] MEDS: ASPIRIN 325 MG TAB PO STA (10:24)
[2024-05-19] MEDS: INSULIN DETEMIR (LEVEMIR) 100 UNIT/ML SYR SQ SCH (10:31)
[2024-05-19] MEDS: ATORVASTATIN 80 MG TAB PO STA (10:54)
[2024-05-19] MEDS: ISOSORBIDE MONONITRATE ER 60 MG TAB.ER.24H PO SCH (10:54)
[2024-05-19] MEDS: SODIUM CHLORIDE 0.9% 1,000 ML in EMPTY BAG 1 BAG IV SCH ×2 (10:57→13:35)
[2024-05-19 11:44] LABS: Glucose,Whole Blood 291 mg/dL (70-110)
--- NOTE | 2024-05-19 11:46 | P.CRDCN ---
History of Present Illness History of present illness: HISTORY OF PRESENT ILLNESS: This is a 73-year-old male with a past medical history significant for hypertension, hyperlipidemia, diabetes, and coronary artery disease with previous CABG and stenting. Patient follows in the office with Dr. Araujo. We have been asked to see the patient in consultation for back pain. Patient examined at the bedside. Patient states over the past month he has been having some pain in between his shoulder blades. He states when this occurs he takes nitro and the pain usually goes away. He states yesterday he had an episode of pain in between his shoulder blades that seem to be worse than his previous episodes. He states that he did take nitro however the pain was not relieved with nitro this time. He states the pain is not physically related. He states that his symptoms feel very similar to when he had his CABG and previous PCI. DIAGNOSTICS: - EKG reveals sinus mechanism with no signs of acute ischemia - Chest xray negative for acute process - Laboratory data: WBC 7.0. Hemoglobin 14.5. Platelet count 173. D-dimer 0.17. Sodium 138. Potassium 4.8. BUN 21. Creatinine 0.78. Magnesium 1.9. Troponin negative x 3. - Current home cardiac medications include Lipitor 80 mg at night, enalapril 15 mg at night, Imdur 60 mg daily, Plavix 75 mg daily, Ranexa 500 mg twice a day, metoprolol titrate 25 mg twice a day. - Most recent echocardiogram obtained in October 2018 revealing normal EF, mild TR, mild MR - Cardiac catheterization history: 2019 revealing patent stent in the left main into left circumflex. Occluded left anterior descending artery. SANCHEZ to LAD is patent. Patent stent in the RCA. Critical disease involving the SVG to diagonal. Patient underwent stenting of the SVG to diagonal. Patient underwent-Lexiscan stress test in November 2021 revealing moderate ischemia in inferior lateral region REVIEW OF SYSTEMS: At the time of my exam: CONSTITUTIONAL: Denies fever or chills. HEENT: Denies blurred vision, vision changes, or eye pain. Denies hemoptysis CARDIOVASCULAR: Denies chest pain. Denies orthopnea. Denies PND. Denies palpitations RESPIRATORY: Denies shortness of breath. GASTROINTESTINAL: Denies abdominal pain. Denies nausea or vomiting. HEMATOLOGIC: Denies bleeding disorders. GENITOURINARY: Denies any blood in urine. SKIN: Denies pruitis. Denies rash. PHYSICAL EXAM: VITAL SIGNS: Reviewed. GENERAL: Well-developed in no acute distress. HEENT: Head is normocephalic. Pupils are equal, round. Sclerae anicteric. Mucous membranes of the mouth are moist. Neck supple. No JVD or thyromegaly LUNGS: Respirations even and unlabored. Lungs essentially clear to auscultation bilaterally. HEART: Regular rate and rhythm. S1 and S2 heard. Systolic murmur 2/6 at the base ABDOMEN: Soft. Nondistended. Nontender. EXTREMITIES: Normal range of motion. No clubbing or cyanosis. Peripheral pulses intact. No lower extremity edema NEUROLOGIC: Awake and alert. Oriented x 3. ASSESSMENT: Chest pain Coronary artery disease with previous four-vessel CABG in 2000, SANCHEZ to LAD, VGD1, VGRA, VGOM1 History of previous stenting of left main into the left circumflex and RCA prior to CABG Status post stenting of SVG to diagonal, 2019 Hypertension Hyperlipidemia Diabetes PLAN: Obtain 2D echo to assess cardiac structure and function Resume home cardiac medications Add aspirin 81 mg daily Patient to undergo cardiac catheterization today with Dr. Araujo Further recommendations pending patient course Nurse practitioner note has been reviewed by physician. Signing provider agrees with the documented findings, assessment, and plan of care documented by MECHANICAL MAINTENANCE TECHNICIAN as a scribe. Past Medical History Past Medical History: Coronary Artery Disease (CAD), Diabetes Mellitus, Hyperlipidemia, Hypertension, Musculoskeletal Disorder Additional Past Medical History / Comment(s): left shoulder fx and torn rotator cuff shoulder History of Any Multi-Drug Resistant Organisms: None Reported Past Surgical History: Coronary Bypass/CABG, Heart Catheterization, Heart Catheterization With Stent, Orthopedic Surgery Additional Past Surgical History / Comment(s): cabg x4 1999, left rotator cuff r epair, 3 cardiac stents Past Anesthesia/Blood Transfusion Reactions: No Reported Reaction Date of Last Stent Placement:: 03/06/17 Past Psychological History: No Psychological Hx Reported Smoking Status: Never smoker Past Alcohol Use History: Rare Past Drug Use History: None Reported - Past Family History Mother Family Medical History: Cancer Additional Family Medical History / Comment(s): skin Father Family Medical History: Coronary Artery Disease (CAD) Medications and Allergies Home Medications Medication Instructions Recorded Confirmed Type Enalapril [Vasotec] 15 mg PO HS 02/08/17 05/18/24 History Isosorbide Mononitrate ER [Imdur] 60 mg PO DAILY 02/08/17 05/18/24 History Clopidogrel [Plavix] 75 mg PO DAILY #90 tab 11/16/18 05/18/24 Rx Ranolazine [Ranexa] 500 mg PO BID 04/18/19 05/18/24 History Atorvastatin [Lipitor] 80 mg PO HS 01/28/20 05/18/24 History Glucagon Emergency Kit 1 mg IM ONCE PRN 08/13/21 05/18/24 History Albuterol Inhaler [Ventolin Hfa 2 puff INHALATION RT-Q4H PRN 05/18/24 05/18/24 History Inhaler] INSULIN ASPART (NovoLOG) [NovoLOG See Protocol SQ TID-W/MEALS 05/18/24 05/18/24 History (formulary)] Insulin Glargine,Hum.rec.anlog 50 units SQ DAILY 05/18/24 05/18/24 History [Toujeo Max Solostar] Metoprolol Tartrate [Lopressor] 25 mg PO BID 05/18/24 05/18/24 History Nitroglycerin Sl Tabs [Nitrostat] 0.4 mg SUBLINGUAL Q5M PRN 05/18/24 05/18/24 History Allergies Allergy/AdvReac Type Severity Reaction Status Date / Time No Known Allergies Allergy Verified 05/18/24 18:28 Physical Exam Vitals: Vital Signs Temp Pulse Pulse Resp BP BP Pulse Ox 05/19/24 08:42 97 05/19/24 07:00 98.4 F 57 L 18 136/74 98 05/19/24 01:55 98.0 F 48 L 17 117/62 95 05/18/24 21:27 98.3 F 63 17 179/81 97 05/18/24 21:00 68 18 138/68 97 05/18/24 20:00 65 18 140/85 98 05/18/24 18:39 98 F 54 L 18 127/73 96 05/18/24 17:27 98.1 F 51 L 18 120/69 96 05/18/24 16:37 54 L 18 161/85 97 05/18/24 14:58 98.1 F 58 L 18 155/82 99 Intake and Output 05/18/24 05/19/24 05/19/24 22:59 06:59 14:59 Other: # Voids 1 3 Weight 97.069 kg 97.069 kg Results 05/18/24 15:35 05/18/24 15:35 Cardiac Enzymes 05/18/24 05/18/24 05/18/24 Range/Units 15:35 15:35 18:15 AST 20 (17-59) U/L Troponin I <0.012 <0.012 (0.000-0.034) ng/mL 05/18/24 Range/Units 21:20 AST (17-59) U/L Troponin I <0.012 (0.000-0.034) ng/mL Coagulation 05/18/24 Range/Units 15:35 PT 11.8 (10.0-12.5) sec APTT 25.9 (22.0-30.0) sec Lipids 05/18/24 Range/Units 15:35 Triglycerides 81.10 (0.00-149.00) mg/dL Cholesterol 131.00 (0.00-200.00) mg/dL HDL Cholesterol 51.30 (40.00-60.00) mg/dL Cholesterol/HDL Ratio 2.55 Ratio CBC 05/18/24 Range/Units 15:35 WBC 7.0 (3.8-10.6) k/uL RBC 4.46 (4.30-5.90) m/uL Hgb 14.5 (13.0-17.5) gm/dL Hct 43.2 (39.0-53.0) % Plt Count 173 (150-450) k/uL Comprehensive Metabolic Panel 05/18/24 Range/Units 15:35 Sodium 138 (137-145) mmol/L Potassium 4.8 (3.5-5.1) mmol/L Chloride 104 (98-107) mmol/L Carbon Dioxide 30 (22-30) mmol/L BUN 21 H (9-20) mg/dL Creatinine 0.78 (0.66-1.25) mg/dL Glucose 337 H (74-99) mg/dL Calcium 9.3 (8.4-10.2) mg/dL AST 20 (17-59) U/L ALT 17 (4-49) U/L Alkaline Phosphatase 56 (38-126) U/L Total Protein 6.2 L (6.3-8.2) g/dL Albumin 3.9 (3.5-5.0) g/dL Current Medications Generic Name Dose Route Start Last Admin Trade Name Freq PRN Reason Stop Dose Admin Albuterol Sulfate 2.5 mg 05/18/24 18:59 Albuterol Nebulized 2.5 Mg/3 Ml INHALATION RT-Q4H PRN Shortness Of Breath Alprazolam 0.25 mg 05/19/24 09:48 Alprazolam 0.25 Mg Tab PO Q6HR PRN Mild Anxiety Alprazolam 0.5 mg 05/19/24 09:48 Alprazolam 0.5 Mg Tab PO Q6HR PRN Moderate Anxiety Aspirin 81 mg 05/19/24 09:00 05/19/24 09:45 Aspirin 81 Mg PO 81 mg DAILY RUPAL Administration Atorvastatin Calcium 80 mg 05/18/24 21:00 05/18/24 20:33 Atorvastatin 80 Mg Tab PO 80 mg HS RUPAL Administration Clopidogrel Bisulfate 75 mg 05/19/24 09:00 05/19/24 09:45 Clopidogrel 75 Mg Tab PO 75 mg DAILY RUPAL Administration Dextrose/Water 25 ml 05/18/24 20:01 Dextrose 50% Syringe 50 Ml IVP PER PROTOCOL PRN Hypoglycemia Protocol Dextrose/Water 50 ml 05/18/24 20:01 Dextrose 50% Syringe 50 Ml IVP PER PROTOCOL PRN Hypoglycemia Protocol Enoxaparin Sodium 40 mg 05/19/24 09:00 05/19/24 09:42 Enoxaparin 40 Mg/0.4 Ml Syringe SQ Not Given DAILY RUPAL Heparin Sodium (Porcine) 10, 1,001 mls @ 999 mls/hr 05/19/24 07:00 000 unit/ Sodium Chloride IRRIGATION 05/19/24 23:00 ONCE PRN INTRA-OP Heparin Sodium (Porcine) 2,500 250.5 mls @ 250 mls/hr 05/19/24 07:00 unit/ Sodium Chloride IRRIGATION 05/19/24 23:00 ONCE PRN INTRA-OP Sodium Chloride 1,000 ml/ IV 1,000 mls @ 97.069 mls/hr 05/19/24 10:00 05/19/24 10:57 Solution IV 97.069 mls/hr .[id number] RUPAL Administration 1 ML/KG/HR Insulin Aspart 0 unit 05/18/24 21:00 05/19/24 05:47 Insulin Aspart (Novolog) 100 Unit/Ml Vial SQ 4 unit ACHS RUPAL Administration Protocol Insulin Detemir 50 unit 05/19/24 07:00 05/19/24 10:31 Insulin Detemir (Levemir) 100 Unit/Ml Syr SQ Not Given DAILY@0700 RUPAL Isosorbide Mononitrate 60 mg 05/19/24 09:00 05/19/24 10:54 Isosorbide Mononitrate Er 60 Mg Tab.Er.24h PO 60 mg DAILY RUPAL Administration Lisinopril 30 mg 05/18/24 21:00 05/18/24 20:33 Lisinopril 10 Mg Tab PO 30 mg HS RUPAL Administration Metoprolol Tartrate 25 mg 05/18/24 21:00 05/19/24 09:45 Metoprolol Tartrate 25 Mg Tab PO 25 mg BID RUPAL Administration Nitroglycerin 0.4 mg 05/19/24 09:48 Nitroglycerin Sl Tabs 0.4 Mg Tab SUBLINGUAL Q5M PRN Chest Pain Ranolazine 500 mg 05/18/24 21:00 05/19/24 09:45 Ranolazine 500 Mg Tab.Er.12h PO 500 mg BID RUPAL Administration Intake and Output 05/18/24 05/19/24 05/19/24 22:59 06:59 14:59 Other: # Voids 1 3 Weight 97.069 kg 97.069 kg Patient Weight 05/20/24 06:59 Weight 97.069 kg 05/18/24 15:35 05/18/24 15:35
[2024-05-19] MEDS: SODIUM CHLORIDE 0.9% 1,000 ML IV ONE (12:09)
[2024-05-19] MEDS: MIDAZOLAM 2 MG/2 ML VIAL IVP ONE (12:09)
[2024-05-19] MEDS: HEPARIN SODIUM,PORCINE (1 ML) 2,500 UNIT in SODIUM CHLORIDE 0.9% 250 ML IRRIGATION PRN (12:10)
[2024-05-19] MEDS: HEPARIN SODIUM,PORCINE 10,000 UNIT in SODIUM CHLORIDE 0.9% 1,000 ML IRRIGATION PRN (12:10)
[2024-05-19] MEDS: LIDOCAINE 1% INJ 10MG/ML (20 ML MDV) SQ ONE (12:11)
[2024-05-19] MEDS: HEPARIN SODIUM 1,000 UN/ML (10ML VL) IVP ONE (12:27)
[2024-05-19] MEDS: IOPAMIDOL-370 100ML BTL INJ ONE (12:34)
[2024-05-19] MEDS: niCARdipine Syringe (1,000 mcg/10 mL) INTRACORON ONE (12:54)
[2024-05-19] MEDS: NITROGLYCERIN 1000MCG/10ML SYRINGE INTRACORON ONE (12:55)
[2024-05-19] MEDS ORDERED: MAG HYDROX/AL HYDROX/SIMETH 30 ML CUP PO PRN (13:09)
[2024-05-19] MEDS ORDERED: ATROPINE SULFATE 0.1 MG/ML 10ML SYRINGE IV PRN (13:09)
[2024-05-19] MEDS ORDERED: ZOLPIDEM 5 MG TAB PO PRN (13:09)
[2024-05-19] MEDS ORDERED: RX INFO: IV CONTRAST WAS GIVEN 1 EACH MISC MISCELLANE PRN (13:09)
--- NOTE | 2024-05-19 13:16 | P.PCN ---
Date of Procedure: 05/19/24 Operative Findings: CARDIAC CATHETERIZATION AND PERCUTANEOUS CORONARY INTERVENTION PERFORMING PHYSICIAN: Phoenix Araujo MD, [facility] PROCEDURE PERFORMED: 1. Selective right and left coronary angiogram as well as SANCHEZ to the LAD angiogram and SVG to diagonal angiogram and SVG to OM angiogram 2. Left heart catheterization 3. Successful stenting of SVG to diagonal using 3.0 x 38 mm Xience EMANI with an excellent angiographic results with adjunctive use of IVUS 4. IFR of the left main coronary artery 5. Ultrasound-guided access of the right common femoral artery and selective right common femoral artery angiogram INDICATION: Unstable angina in this 73-year-old gentleman with extensive coronary artery disease COMPLICATION: None APPROACH: Right common femoral artery LEVEL OF SEDATION: Moderate with the sedation time off 54 minutes PROCEDURE DESCRIPTION: After obtaining informed consent the patient was brought to the cardiac Syrup Filterer. The right common femoral artery was cannulated using micropuncture technique under ultrasound guidance a micropuncture wire passed easily then I placed a 6 Greek 11 cm sheath at the right common femoral artery with after that selective right and left coronary angiogram performed using JR4 and JL 4 catheters. The SVG to diagonal and SVG to OM and SANCHEZ to LAD angiogram performed using the JR4 catheter. After that I decided to intervene on the SVG to diagonal. Anticoagulation was initiated using heparin with continuous ACT monitoring. Subsequently I did engage the graft using an LCB guiding catheter. After that it was wired using a run-through wire. Intravascular ultrasound was performed and showed a diameter around 3 mm. Predilatation was performed using 2.5 mm balloon but attempting advancing 3.0 x 38 mm stent was unsuccessful over the wire but was successful using GuideLiner. The stent was positioned under fluoroscopy guidance and deployed under fluoroscopy guidance. The proximal portion of the stent was postdilated using 3.5 mm noncompliant balloon was final angiogram showing excellent angiographic results and the procedure was completed with no complication at that point. Please note I did also an IFR of the proximal left main coronary artery to left circumflex coronary artery. After zeroing the valvular wire and equalizing between the Dobler wire and guiding catheter which was JL 4 guiding catheter the left main was engaged and subsequently the left main to left circumflex was wired and subsequently the guide was disengaged. We did IFR and that came in to be at 0.96. The procedure was completed with no complication after I did selective right common femoral artery angiogram and the right common femoral artery was sealed using the Angio- Seal device SELECTIVE CORONARY ANGIOGRAM: The right coronary artery: Large-caliber vessel and a dominant vessel with mild disease only Left main: Has intermediate lesion involving the ostium/proximal portion documented to be nonflow limiting by Doppler wire The left circumflex: Large caliber vessel stented and the stent is patent The left anterior descending artery: Is occluded in the proximal to midportion Coronary bypasses angiogram The SANCHEZ to LAD is patent The SVG to diagonal is subtotally occluded The SVG to OM is occluded HEMODYNAMICS: LVEDP was 26 mmHg with no significant gradient across aortic valve CONCLUSION: Occluded LAD with patent SANCHEZ to LAD. Critical disease involving the SVG to diagonal. I performed PCI of the SVG to diagonal Patent stent in the distal left main and proximal left circumflex coronary artery with intermediate disease involving the ostial left main documented to be nonflow limiting by Doppler wire Mild disease involving the right coronary artery POSTPROCEDURE MANAGEMENT: 1. Dual antiplatelet therapy using aspirin and Plavix for 6-12 month 2. Aggressive cholesterol control 3. Follow-up with the patient
--- NOTE | 2024-05-19 13:21 | CA ---
Transthoracic Echo Report Name: Blaine Nelson Age: 73 Gender: M : 1950 Exam Date: 05/19/2024 10:49 Exam Location: [facility] Ht (in): 74 Wt (lb): 214 Ordering Physician: Prerna Pacheco Attending/Referring Phys: [id number], Tara [employer] Department Supervisor Angela Garcia RDCS Procedure CPT: Indications: LV function, CP Cardiac Hx: Technical Quality: Good Contrast 1: Total Dose (mL): Contrast 2: Total Dose (mL): MEASUREMENTS (Male / Female) Normal Values 2D ECHO LV Diastolic Diameter PLAX 6.1 cm 4.2 - 5.9 / 3.9 - 5.3 cm LV Systolic Diameter PLAX 4.1 cm IVS Diastolic Thickness 0.7 cm 0.6 - 1.0 / 0.6 - 0.9 cm LVPW Diastolic Thickness 0.7 cm 0.6 - 1.0 / 0.6 - 0.9 cm LV Relative Wall Thickness 0.2 LVOT Diameter 2.3 cm LV Diastolic Volume MOD BP 150.6 cm??? 67 - 155 / 56 - 104 cm??? LV Systolic Volume MOD BP 50.1 cm??? 22 - 58 / 19 - 49 cm??? LV Ejection Fraction MOD BP 66.8 % >= 55 % LV Cardiac Index MOD BP 2795.5 cm???/min???m??? LV Diastolic Volume MOD 4C 139.6 cm??? LV Systolic Volume MOD 4C 46.9 cm??? LV Ejection Fraction MOD 4C 66.4 % LV Cardiac Index MOD 4C 2577.3 cm???/min???m??? LV Diastolic Length 4C 8.4 cm LV Systolic Length 4C 7.4 cm LV Diastolic Volume MOD 2C 151.1 cm??? LV Systolic Volume MOD 2C 52.3 cm??? LV Ejection Fraction MOD 2C 65.4 % LV Cardiac Index MOD 2C 2749.9 cm???/min???m??? LV Diastolic Length 2C 9.1 cm LV Systolic Length 2C 7.6 cm LA Volume 69.4 cm??? 18 - 58 / 22 - 52 cm??? LA Volume Index 30.7 cm???/m??? 16 - 28 cm???/m??? DOPPLER AV Peak Velocity 138.2 cm/s AV Peak Gradient 7.6 mmHg AV Mean Velocity 95.4 cm/s AV Mean Gradient 4.1 mmHg AV Velocity Time Integral 33.8 cm LVOT Peak Velocity 126.7 cm/s LVOT Peak Gradient 6.4 mmHg LVOT Velocity Time Integral 30.2 cm LVOT Stroke Volume 127.8 cm??? LVOT Stroke Volume Index 57.1 ml/m??? LVOT Cardiac Index 3553.8 cm???/min???m??? AV Area Cont Eq vti 3.8 cm??? AV Area Cont Eq pk 3.9 cm??? MV Area PHT 4.0 cm??? Mitral E Point Velocity 83.4 cm/s Mitral A Point Velocity 85.8 cm/s Mitral E to A Ratio 1.0 MV Deceleration Time 189.8 ms TR Peak Velocity 342.9 cm/s TR Peak Gradient 47.0 mmHg Right Atrial Pressure 5.0 mmHg Pulmonary Artery Systolic Pressu 52.0 mmHg Right Ventricular Systolic Press 52.0 mmHg PV Peak Velocity 114.0 cm/s PV Peak Gradient 5.2 mmHg FINDINGS Left Ventricle Left ventricular ejection fraction is estimated at 55 to 60 %. Mildly increased left ventricular diastolic diameter. Left ventricular wall thickness normal. No obvious regional wall motion abnormalities. Right Ventricle Normal right ventricular size and function. Moderate pulmonary hypertension. Right Atrium Severe right atrial dilatation. Left Atrium Mildly increased left atrial volume. Mildly increased left atrial area. Mitral Valve Structurally normal mitral valve. No evidence for mitral valve prolapse. No mitral stenosis. Mild mitral regurgitation. Aortic Valve Trileaflet aortic valve. No aortic valve stenosis or regurgitation. Tricuspid Valve Structurally normal tricuspid valve. No tricuspid stenosis. Mild tricuspid regurgitation. Pulmonic Valve Structurally normal pulmonic valve. No pulmonic stenosis. Trace pulmonic regurgitation. Pericardium No pericardial effusion. Aorta Normal size aortic root and proximal ascending aorta. CONCLUSIONS 1. Normal left ventricular size and systolic function 2. Mild mitral and tricuspid regurgitation with moderate pulmonary hypertension Previewed by: Dr. Catrachita Haney MD (Electronically Signed) Final Date: 19 May 2024 13:21
[2024-05-19 13:40] LABS: Glucose,Whole Blood 324 mg/dL (70-110)
--- NOTE | 2024-05-19 15:57 | P.PN ---
Subjective Progress Note Date: 05/19/24 Hospital course: 73 year old male with CAD s/p CABG. Patient coming in with thoracic back pain , he was concerned this could be a heart attack as the pain is similar to what he experienced when he suddenly required a CABG when he had a heart attack. patient denies any associated dizziness, SOB, nausea , vomiting, cough. Patient denies any recent hospital stay , travel, or blood clots. Subjective: 05/19/2024: Patient seen and evaluated bedside. No acute events overnight. No acute complaints. Patient denies any chest pain. States mild back pain. Was already seen by cardiology and was scheduled for catheterization later today. Pertinent positives and negatives as discussed above, a complete review of systems was performed and all other systems are negative. Vitals: Signs Reviewed Objective: Physical Exam: General: nontoxic, no distress, appears at stated age Derm: warm, dry, intact Head: atraumatic, normocephalic, symmetric Eyes: EOMI, anicteric sclera Mouth: no lip lesion, mucus membranes moist Cardiovascular: S1 S2 reg, no murmur, rubs, or gallops Lungs: CTA bilateral, no rhonchi, no rales, no accessory muscle use Abdominal: soft, non-tender to palpataion, no appreciable organomegaly Extremities: no gross muscle atrophy, no edema, no contractures Neuro: Alert, Oriented, CNII-XII grossly intact, gait normal Psych: well appearing, appropriate affect Data Received Today: Pertinent Labs: Total cholesterol 131, LDL 63.5, HDL 51.3, triglycerides 81.1 Imaging: Echo Doppler pending Assessment and Plan: 73-year-old male with CAD s/p CABG, diabetes mellitus being seen for thoracic back pain. Admitted for cardio workup. Active: #. Thoracic back pain rule out ACS #History of CAD status post CABG #Dyslipidemia Troponins negative EKG interpreted displays no ST changes, rate, QTc 5aspirin 81 mg daily Continue with atorvastatin 80 mg p.o. at bedtime Continue with home Plavix 75 mg p.o. daily Aspirin 81 mg daily -Ranexa 500 twice daily Lipid panel: total cholesterol 131, LDL 63.5, HDL 51.3, triglycerides 81.1 Echo ordered, results pending Cardiology monitoring Cardiology following. Scheduled for cardiac catheterization today with Dr. Romero. PCI was performed of the SVG to diagonal. Chronic: #. Type 2 diabetes Continue with Levemir 50 units daily Insulin sliding scale SQ Accu-Cheks, monitor for hypoglycemia #. Hypertension Continue with lisinopril 30 mg nightly, metoprolol 25 twice daily F: N/A E: Replete as needed N: Heart healthy diet A: Ambulatory DVT ppx: Lovenox 40 mg SQ daily Code status: Full code Anticipated discharge place: Home Anticipated discharge time: Pending clinical course Ankush Hernandez MD PGY-1 IM Dictation was produced using [employer] dictation software. please excuse any grammatical, word or spelling errors. I have seen and evaluated the patient today. Discussed with the resident and agree with the residents finding and plan as documented in the resident's note. Changes highlighted in blue font. Objective - Vital Signs Vital signs: Vital Signs Temp 98.0 F 05/19/24 01:55 Pulse 48 L 05/19/24 01:55 Resp 17 05/19/24 01:55 BP 117/62 05/19/24 01:55 Pulse Ox 95 05/19/24 01:55 FiO2 Intake & Output 05/18/24 05/19/24 05/19/24 18:59 06:59 18:59 Weight 97.069 kg 97.069 kg Other: # Voids 3 - Labs CBC & Chem 7: 05/18/24 15:35 05/18/24 15:35 Labs: Abnormal Lab Results - Last 24 Hours (Table) 05/18/24 05/18/24 05/19/24 Range/Units 15:35 21:19 05:43 BUN 21 H (9-20) mg/dL Glucose 337 H (74-99) mg/dL POC Glucose (mg/dL) 329 H 201 H (70-110) mg/dL Total Protein 6.2 L (6.3-8.2) g/dL
[2024-05-19 17:24] LABS: Glucose,Whole Blood 256 mg/dL (70-110)
[2024-05-19 20:13] LABS: Glucose,Whole Blood 269 mg/dL (70-110)
[2024-05-20 05:49] LABS: Glucose,Whole Blood 201 mg/dL (70-110)
[2024-05-20 06:21] LABS: Glucose,Whole Blood 204 mg/dL (70-110)
[2024-05-20 08:45] VITALS: BP 122/65; PULSE 60; RESP 17; TEMP 98
[2024-05-20 09:14] LABS: BUN/Creat Ratio 19.14 Ratio (12.00-20.00); Blood Urea Nitrogen 13.4 mg/dL (9.0-27.0); Calcium 8.5 mg/dL (8.7-10.3); Carbon Dioxide 23.1 mmol/L (21.6-31.8); Chloride 106 mmol/L (96-109); Glucose 233 mg/dL (70-110); Potassium 4.3 mmol/L (3.5-5.5); Sodium 139 mmol/L (135-145)
--- NOTE | 2024-05-20 10:12 | P.PN ---
Subjective HISTORY OF PRESENT ILLNESS: This is a 73-year-old male with a past medical history significant for hypertension, hyperlipidemia, diabetes, and coronary artery disease with previous CABG and stenting. Patient follows in the office with Dr. Araujo. We have been asked to see the patient in consultation for back pain. Patient examined at the bedside. Patient states over the past month he has been having some pain in between his shoulder blades. He states when this occurs he takes nitro and the pain usually goes away. He states yesterday he had an episode of pain in between his shoulder blades that seem to be worse than his previous episodes. He states that he did take nitro however the pain was not relieved with nitro this time. He states the pain is not physically related. He states that his symptoms feel very similar to when he had his CABG and previous PCI. DIAGNOSTICS: - EKG reveals sinus mechanism with no signs of acute ischemia - Chest xray negative for acute process - Laboratory data: WBC 7.0. Hemoglobin 14.5. Platelet count 173. D-dimer 0.17. Sodium 138. Potassium 4.8. BUN 21. Creatinine 0.78. Magnesium 1.9. T roponin negative x 3. - Current home cardiac medications include Lipitor 80 mg at night, enalapril 15 mg at night, Imdur 60 mg daily, Plavix 75 mg daily, Ranexa 500 mg twice a day, metoprolol titrate 25 mg twice a day. - Most recent echocardiogram obtained in October 2018 revealing normal EF, mild TR, mild MR - Cardiac catheterization history: 2019 revealing patent stent in the left main into left circumflex. Occluded left anterior descending artery. SANCHEZ to LAD is patent. Patent stent in the RCA. Critical disease involving the SVG to diagonal. Patient underwent stenting of the SVG to diagonal. Patient underwent-Lexiscan stress test in November 2021 revealing moderate ischemia in inferior lateral region 05/20/2024 Patient is status post cardiac catheterization with Dr. Araujo revealing occluded LAD with patent SANCHEZ to LAD, critical disease involving SVG to diagonal. Mild disease involving the RCA. Patent stent in the distal left main and proximal left circumflex with intermediate disease involving the ostial left main documented to be nonflow limiting by Doppler wire. Patient underwent PCI of the SVG to diagonal. Patient states he is feeling much better today. No further pain in between his shoulder blades. He denies chest pain or shortness of breath. Vital signs are stable. Echocardiogram completed revealing ejection fraction 55 to 60%, mild MR, mild TR and moderate pulm hypertension PHYSICAL EXAM: VITAL SIGNS: Reviewed. GENERAL: Well-developed in no acute distress. HEENT: Head is normocephalic. Pupils are equal, round. Sclerae anicteric. Mucous membranes of the mouth are moist. Neck supple. No JVD or thyromegaly LUNGS: Respirations even and unlabored. Lungs essentially clear to auscultation bilaterally. HEART: Regular rate and rhythm. S1 and S2 heard. Systolic murmur 2/6 at the base ABDOMEN: Soft. Nondistended. Nontender. EXTREMITIES: Normal range of motion. No clubbing or cyanosis. Peripheral pulses intact. No lower extremity edema NEUROLOGIC: Awake and alert. Oriented x 3. ASSESSMENT: Chest pain status post PCI of the SVG to diagonal Coronary artery disease with previous four-vessel CABG in 1999, SANCHEZ to LAD, VGD1, VGRA, VGOM1 History of previous stenting of left main into the left circumflex and RCA prior to CABG Status post stenting of SVG to diagonal, 2019 Hypertension Hyperlipidemia Diabetes PLAN: Continue dual antiplatelet therapy with aspirin and Plavix for 6 to 12 months Continue high intensity statin. LDL goal less than 70 Continue additional cardiac medications Patient is stable for discharge home today from a cardiac standpoint Patient to follow-up postdischarge with Dr. Araujo Nurse practitioner note has been reviewed by physician. Signing provider agrees with the documented findings, assessment, and plan of care documented by [employer] WORK[employer] as a scribe. Objective - Vital Signs Vital signs: Vital Signs Temp 98.0 F 05/20/24 07:00 Pulse 60 05/20/24 07:00 Resp 17 05/20/24 07:00 BP 122/65 05/20/24 07:00 Pulse Ox 96 05/20/24 07:00 FiO2 Intake & Output 05/19/24 05/20/24 05/20/24 18:59 06:59 18:59 Intake Total 30 Output Total 350 Balance -320 Weight 97.069 kg Intake: IV 30 Output: Urine 350 Other: # Voids 1 2 - Labs CBC & Chem 7: 05/18/24 15:35 05/20/24 05:51 Labs: Abnormal Lab Results - Last 24 Hours (Table) 05/19/24 05/19/24 05/19/24 Range/Units 11:42 13:39 17:23 Glucose (70-110) mg/dL POC Glucose (mg/dL) 291 H 324 H 256 H (70-110) mg/dL Calcium (8.7-10.3) mg/dL 05/19/24 05/20/24 05/20/24 Range/Units 20:12 05:43 05:51 Glucose 233 H (70-110) mg/dL POC Glucose (mg/dL) 269 H 201 H (70-110) mg/dL Calcium 8.5 L (8.7-10.3) mg/dL 05/20/24 Range/Units 06:18 Glucose (70-110) mg/dL POC Glucose (mg/dL) 204 H (70-110) mg/dL Calcium (8.7-10.3) mg/dL
[2024-05-20 11:24] VITALS: BMI 27.4
--- NOTE | 2024-05-20 11:56 | P.DS ---
Providers Date of admission: 05/18/24 17:43 Expected date of discharge: 05/20/24 Attending physician: Amita Zavala MD Consults: 05/18/24 17:43 Consult Physician Urgent Consulting Provider: Phoenix Araujo Consult Reason/Comments: back pain w ho caridac w sim sx Do you want consulting provider notified?: Yes 05/19/24 13:09 Consult Physician Routine Consulting Provider: [facility] Consult Reason/Comments: Post Interventional Patient Do you want consulting provider notified?: Already Contacted Primary care physician: Marisol [facility] Course: Discharge Diagnosis: Unstable angina status post PCI of the SVG to diagonal Coronary artery disease with previous four-vessel CABG in 2000, SANCHEZ to LAD, VGD1, VGRA, VGOM1 History of previous stenting of left main into the left circumflex and RCA prior to CABG Status post stenting of SVG to diagonal, 2019 Hypertension Hyperlipidemia Diabetes mellitus Hospital Course: 73 year old male with CAD s/p CABG. Patient coming in with thoracic back pain , he was concerned this could be a heart attack as the pain is similar to what he experienced when he suddenly required a CABG when he had a heart attack. patient denies any associated dizziness, SOB, nausea , vomiting, cough. Patient denies any recent hospital stay , travel, or blood clots. EKG displayed no ST changes. Troponin <0.012. Given extensive heart history, patient was admitted to inpatient floor. Cardiology consulted. 05/19/2024: Patient seen and evaluated bedside. No acute events overnight. No acute complaints. Patient denies any chest pain. States mild back pain. Patient was already seen by cardiology and was scheduled for catheterization later today. 05/20/2024: Patient seen and evaluated bedside. No acute events overnight. No acute complaints. Yesterday patient had heart catheterization with PCI of SVG to diagonal. Patient feels much better after PCI. States his back and chest pain has resolved. Patient is being discharged with daily aspirin. He is to follow-up with cardiology and his PCP. Patient is being discharged home. Vital signs reviewed and stable. Physical examination: Vital signs reviewed General: non toxic, no distress, appears at stated age, normal weight Derm: no unusual rashes/lesions, warm Head: atraumatic, normocephalic, symmetric Eyes: EOMI, anicteric sclera, pupils equal round reactive to light ENT: Nose and ears atraumatic Cardiovascular: S1S2 reg, no murmur, positive dorsalis pedis pulse bilateral, no edema Lungs: CTA bilateral, no rhonchi, no rales, no accessory muscle use Abdominal: soft, nontender to palpation, no guarding Ext: muscle strength 5 out of 5 in all 4 extremities grossly, no gross muscle atrophy Neuro: CN II-XI grossly intact, no gross focal neuro deficits Psych: Alert, oriented to person, place, and time A total of greater than 30 minutes of time were spent preparing this complex discharge summary. Patient was discharge on May 20, 2024 at 09:54. Ankush Hernandez MD PGY-1 IM Dictation was produced using [employer] dictation software. please excuse any g rammatical, word or spelling errors. I have seen and evaluated the patient today. Discussed with the resident and agree with the residents finding and plan as documented in the resident's note. Changes highlighted in blue font. Patient Condition at Discharge: Fair Plan - Discharge Summary Discharge Rx Participant: No New Discharge Prescriptions: New Aspirin 81 mg PO DAILY 90 Days #90 tab Continue Isosorbide Mononitrate ER [Imdur] 60 mg PO DAILY Enalapril [Vasotec] 15 mg PO HS Clopidogrel [Plavix] 75 mg PO DAILY #90 tab Ranolazine [Ranexa] 500 mg PO BID Atorvastatin [Lipitor] 80 mg PO HS Glucagon Emergency Kit 1 mg IM ONCE PRN PRN Reason: low blood sugar Nitroglycerin Sl Tabs [Nitrostat] 0.4 mg SUBLINGUAL Q5M PRN PRN Reason: Chest Pain Albuterol Inhaler [Ventolin Hfa Inhaler] 2 puff INHALATION RT-Q4H PRN PRN Reason: Shortness Of Breath INSULIN ASPART (NovoLOG) [NovoLOG (formulary)] See Protocol SQ TID-W/MEALS Insulin Glargine,Hum.rec.anlog [Toujeo Max Solostar] 50 units SQ DAILY Metoprolol Tartrate [Lopressor] 25 mg PO BID Discharge Medication List Enalapril [Vasotec] 15 mg PO HS 02/08/17 [History] Isosorbide Mononitrate ER [Imdur] 60 mg PO DAILY 10/05/17 [History] Clopidogrel [Plavix] 75 mg PO DAILY #90 tab 11/16/18 [Rx] Ranolazine [Ranexa] 500 mg PO BID 04/18/19 [History] Atorvastatin [Lipitor] 80 mg PO HS 01/28/20 [History] Glucagon Emergency Kit 1 mg IM ONCE PRN 08/13/21 [History] Albuterol Inhaler [Ventolin Hfa Inhaler] 2 puff INHALATION RT-Q4H PRN 05/18/24 [History] INSULIN ASPART (NovoLOG) [NovoLOG (formulary)] See Protocol SQ TID-W/MEALS 05/18/24 [History] Insulin Glargine,Hum.rec.anlog [Toujeo Max Solostar] 50 units SQ DAILY 05/18/24 [History] Metoprolol Tartrate [Lopressor] 25 mg PO BID 05/18/24 [History] Nitroglycerin Sl Tabs [Nitrostat] 0.4 mg SUBLINGUAL Q5M PRN 05/18/24 [History] Aspirin 81 mg PO DAILY 90 Days #90 tab 05/20/24 [Rx] Follow up Appointment(s)/Referral(s): Phoenix Araujo MD [STAFF PHYSICIAN] - 1 Week (office to call) Marisol Davalos MD [Primary Care Provider] - 1-2 days Patient Instructions/Handouts: Coronary Intravascular Stent Placement (DC) Activity/Diet/Wound Care/Special Instructions: Please see PCP and cardiology. Discharge Disposition: HOME SELF-CARE
== END 2024-05-20 12:40 | disposition home or self-care (01) ==
LOC: EC 14:54 → 6NMEDSUR 17:43
PROVIDERS: ADMIT Internal Medicine; ATTEND Internal Medicine
DX: I25.110 Atherosclerotic heart disease of native coronary artery with unstable angina pectoris (principal); M54.6 Pain in thoracic spine; E11.9 Type 2 diabetes mellitus without complications; E78.5 Hyperlipidemia, unspecified; I10 Essential (primary) hypertension; Z95.1 Presence of aortocoronary bypass graft; Z95.5 Presence of coronary angioplasty implant and graft; Z79.02 Long term (current) use of antithrombotics/antiplatelets; Z79.4 Long term (current) use of insulin; Z79.82 Long term (current) use of aspirin; Z79.899 Other long term (current) drug therapy
CPT/HCPCS: 96372; 99284; 36415; 94760; 93005; 93306; 92978; 93459; 93799; 85379; 80061; 80053; 80048; 82150; 83690; 83735; 84484; 85025; 85610; 85730; 71046; G0378 ×3; C9604; C1760; C1887 ×3; C1769 ×4; C1725 ×2; C1894; C1753; C1874; J2250; J1644 ×3; J2003; J1650; Q9967; J2305

== ENCOUNTER 2024-06-03 19:26 | Emergency (ER) | payer MEDICARE ==
[2024-06-03 21:06] LABS: Basophils % (A) 0 %; Eosinophils # (A) 0.2 k/uL (0-0.7); Eosinophils % (A) 3 %; HGB 15.2 gm/dL (13.0-17.5); Lymphocytes # (A) 2.3 k/uL (1.0-4.8); Lymphocytes % (A) 35 %; MCH 31.7 pg (25.0-35.0); MCHC 33.1 g/dL (31.0-37.0); Mean Platelet Volume 7.4; Monocytes # (A) 0.4 k/uL (0-1.0); Monocytes % (A) 6 %; Neutrophils # (A) 3.5 k/uL (1.3-7.7); Neutrophils % (A) 53 %; Platelet Count 192 k/uL (150-450); RBC 4.79 m/uL (4.30-5.90); RDW 12.2 % (11.5-15.5); WBC 6.6 k/uL (3.8-10.6)
[2024-06-03 21:10] LABS: INR 1.1 (<1.2); Partial Thromboplastin Time 25.2 sec (22.0-30.0); Prothrombin Time 11.8 sec (10.0-12.5)
[2024-06-03 21:11] LABS: ALT 18 U/L (4-49); AST 20 U/L (17-59); African American GFR (CKD) >90 (>60 ml/min/1.73 sqM); Albumin 4.3 g/dL (3.5-5.0); Alkaline Phosphatase 61 U/L (38-126); Anion Gap 10 mmol/L; Blood Urea Nitrogen 18 mg/dL (9-20); Calcium 9.5 mg/dL (8.4-10.2); Carbon Dioxide 25 mmol/L (22-30); Chloride 100 mmol/L (98-107); Glucose 267 mg/dL (74-99); Non-African American GFR(CKD) >90 (>60 ml/min/1.73 sqM); Potassium 4.4 mmol/L (3.5-5.1); Sodium 135 mmol/L (137-145); Total Bilirubin 0.6 mg/dL (0.2-1.3); Total Protein 6.9 g/dL (6.3-8.2)
--- NOTE | 2024-06-03 21:36 | ED ---
Headache HPI - General Chief Complaint: Headache Stated Complaint: Head pain Time Seen by Provider: 06/03/24 20:00 Mode of arrival: ambulatory - History of Present Illness Initial Comments: 73-year-old male presenting with chief complaint of headache. Patient has been having a sharp headache that feels like "spikes" on the right side of his head. Patient has had this headache in the past, states it is particularly worse if he tries to bend over or lift something heavy. Patient has had issues with these kind of headaches for years, he currently follows with Dr. Galvan and had an MRI done back in 2021, he was told that he had "old blood" on the MRI and if he had the symptoms again to present to the ER while they were ongoing. States that the pain comes and goes. No injury or trauma. Patient is on Plavix, he had a recent cardiac stent placed on May 20. No nausea, vomiting, vision changes or hearing changes, dizziness, neck stiffness, numbness, tingling, weakness. - Related Data Home Medications Medication Instructions Recorded Confirmed Enalapril [Vasotec] 15 mg PO HS 02/08/17 05/18/24 Isosorbide Mononitrate ER [Imdur] 60 mg PO DAILY 02/08/17 05/18/24 Ranolazine [Ranexa] 500 mg PO BID 04/18/19 05/18/24 Atorvastatin [Lipitor] 80 mg PO HS 01/28/20 05/18/24 Glucagon Emergency Kit 1 mg IM ONCE PRN 08/13/21 05/18/24 Albuterol Inhaler [Ventolin Hfa 2 puff INHALATION RT-Q4H PRN 05/18/24 05/18/24 Inhaler] INSULIN ASPART (NovoLOG) [NovoLOG See Protocol SQ TID-W/MEALS 05/18/24 05/18/24 (formulary)] Insulin Glargine,Hum.rec.anlog 50 units SQ DAILY 05/18/24 05/18/24 [Alon Bah] Metoprolol Tartrate [Lopressor] 25 mg PO BID 05/18/24 05/18/24 Nitroglycerin Sl Tabs [Nitrostat] 0.4 mg SUBLINGUAL Q5M PRN 05/18/24 05/18/24 Previous Rx's Medication Instructions Recorded Clopidogrel [Plavix] 75 mg PO DAILY #90 tab 11/16/18 Aspirin 81 mg PO DAILY 90 Days #90 tab 05/20/24 Allergies Allergy/AdvReac Type Severity Reaction Status Date / Time No Known Allergies Allergy Verified 06/03/24 19:48 Review of Systems ROS Statement: Those systems with pertinent positive or pertinent negative responses have been documented in the HPI. ROS Other: All systems not noted in ROS Statement are negative. Past Medical History Past Medical History: Coronary Artery Disease (CAD), Diabetes Mellitus, Hyperlipidemia, Hypertension, Musculoskeletal Disorder Additional Past Medical History / Comment(s): left shoulder fx and torn rotator cuff shoulder History of Any Multi-Drug Resistant Organisms: None Reported Past Surgical History: Coronary Bypass/CABG, Heart Catheterization, Heart Catheterization With Stent, Orthopedic Surgery Additional Past Surgical History / Comment(s): cabg x4 1999, left rotator cuff repair, 3 cardiac stents. stent cardiac May 20 Past Anesthesia/Blood Transfusion Reactions: No Reported Reaction Date of Last Stent Placement:: 03/06/17 Past Psychological History: No Psychological Hx Reported Smoking Status: Never smoker Past Alcohol Use History: Rare Past Drug Use History: None Reported - Past Family History Mother Family Medical History: Cancer Additional Family Medical History / Comment(s): skin Father Family Medical History: Coronary Artery Disease (CAD) General Exam Limitations: no limitations General appearance: alert, in no apparent distress Head exam: Present: atraumatic, normocephalic, normal inspection Eye exam: Present: normal appearance, PERRL, EOMI. Absent: periorbital swelling Neck exam: Present: normal inspection, full ROM. Absent: tenderness, meningismus Respiratory exam: Present: normal lung sounds bilaterally. Absent: respiratory distress, wheezes, rales, rhonchi, stridor Cardiovascular Exam: Present: regular rate, normal rhythm, normal heart sounds. Absent: systolic murmur, diastolic murmur, rubs, gallop, clicks Neurological exam: Present: alert, oriented X3 Expanded Patient oriented to: Present: person, place, time Speech: Present: fluid speech Cranial nerves: EOM's Intact: Normal Motor strength exam: RUE: 5, LUE: 5, RLE: 5, LLE: 5 Eye Response: (4) open spontaneously Motor Response: (6) obeys commands Verbal Response: (5) oriented [place] Total: 15 Psychiatric exam: Present: normal affect, normal mood Skin exam: Present: warm, dry Course Vital Signs 06/03/24 06/03/24 06/03/24 19:42 21:49 22:42 Temperature 98.3 F 98.5 F Pulse Rate 68 55 L 60 Respiratory 18 16 17 Rate Blood Pressure 180/82 159/77 155/83 O2 Sat by Pulse 99 97 93 L Oximetry Medical Decision Making - Medical Decision Making Was pt. sent in by a medical professional or institution (, PA, HOSE SEAMER, urgent care, hospital, or fdc...) When possible be specific @ -No Did you speak to anyone other than the patient for history (EMS, parent, family, police, friend...)? What history was obtained from this source @ -No Did you review nursing and triage notes (agree or disagree)? Why? @ -I reviewed and agree with nursing and triage notes Were old charts reviewed (outside hosp., previous admission, EMS record, old EKG, old radiological studies, urgent care reports/EKG's, fdc records)? Report findings @ -Reviewed the patient's MRI from 2021, there was evidence of nonacute parenchymal hemorrhage and right temporal parietal venous angioma Differential Diagnosis (chest pain, altered mental status, abdominal pain women, abdominal pain men, vaginal bleeding, weakness, fever, dyspnea, syncope, headache, dizziness, GI bleed, back pain, seizure, CVA, palpatations, mental health, musculoskeletal)? @ -[facility] Differential Headache: Migraine, tension, cluster, carbon monoxide, central venous thrombosis, pension karma temporal arteritis, acute closure glaucoma, intercranial hemorrhage, mastoiditis, sinusitis, head injury this is not meant to be an all-inclusive list. EKG interpreted by me (3pts min.). @ -As above X-rays interpreted by me (1pt min.). @ -None done CT interpreted by me (1pt min.). @ -CTA shows normal [place] CT shows no acute intracranial process. 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 min.). @ -None done What testing was considered but not performed or refused? (CT, X-rays, U/S, labs)? Why? @ -None What meds were considered but not given or refused? Why? @ -None Did you discuss the management of the patient with other professionals (professionals i.e. Dr., PA, HOSE SEAMER, lab, RT, psych nurse, licensed social worker, soap maker, teacher, air defense artillery officer, pillowcase folder)? Give summary @ -No Was smoking cessation discussed for >3mins.? @ -No Was critical care preformed (if so, how long)? @ -No Were there social determinants of health that impacted care today? How? (Homelessness, low income, unemployed, alcoholism, drug addiction, transportation, low edu. Level, literacy, decrease access to med. care, [place] [facility], rehab)? @ -No Was there de-escalation of care discussed even if they declined (Discuss DNR or withdrawal of care, Hospice)? DNR status @ -No What co-morbidities impacted this encounter? (DM, HTN, Smoking, COPD, CAD, Cancer, CVA, ARF, Chemo, Hep., AIDS, mental health diagnosis, sleep apnea, morbid obesity)? @ -None Was patient admitted / discharged? Hospital course, mention meds given and route, prescriptions, significant lab abnormalities, going to OR and other pertinent info. @ -73-year-old male presenting with chief complaint of headache. Started yesterday. This feels like a headache he has had in the past. History of angioma found on MRI in 2021 and nonacute parenchymal hemorrhage. No focal neurological deficits. GCS 15. No leukocytosis or anemia. Normal [place] ll[place] seen on CTA. No acute changes seen on CT of the brain, same angiomas present. On reassessment the patient is resting comfortably showing no acute signs of distress. Patient still declines any medication for his headache stating that it is really not that bad. He is educated on today's findings. He will follow-up with his neurologist Dr. Galvan and his PCP. Report back to ER with any new or worsening symptoms. Discussed return parameters and answered all questions. Patient conveyed verbal understanding and agreed to the plan. I discussed this case in detail with my attending Dr. Botello Undiagnosed new problem with uncertain prognosis? @ -No Drug Therapy requiring intensive monitoring for toxicity (Heparin, Nitro, Insulin, Cardizem)? @ -No Were any procedures done? @ -No Diagnosis/symptom? @ -Headache Acute, or Chronic, or Acute on Chronic? @ -Acute Uncomplicated (without systemic symptoms) or Complicated (systemic symptoms)? @ -Uncomplicated Side effects of treatment? @ -No Exacerbation, Progression, or Severe Exacerbation? @ -No - Lab Data Result diagrams: 06/03/24 20:32 06/03/24 20:32 Lab Results 06/03/24 06/03/24 06/03/24 Range/Units 20:32 20:32 20:32 WBC 6.6 (3.8-10.6) k/uL RBC 4.79 (4.30-5.90) m/uL Hgb 15.2 (13.0-17.5) gm/dL Hct 46.0 (39.0-53.0) % MCV 96.0 (80.0-100.0) fL MCH 31.7 (25.0-35.0) pg MCHC 33.1 (31.0-37.0) g/dL RDW 12.2 (11.5-15.5) % Plt Count 192 (150-450) k/uL MPV 7.4 Neutrophils % 53 % Lymphocytes % 35 % Monocytes % 6 % Eosinophils % 3 % Basophils % 0 % Neutrophils # 3.5 (1.3-7.7) k/uL Lymphocytes # 2.3 (1.0-4.8) k/uL Monocytes # 0.4 (0-1.0) k/uL Eosinophils # 0.2 (0-0.7) k/uL Basophils # 0.0 (0-0.2) k/uL PT 11.8 (10.0-12.5) sec INR 1.1 (<1.2) APTT 25.2 (22.0-30.0) sec Sodium 135 L (137-145) mmol/L Potassium 4.4 (3.5-5.1) mmol/L Chloride 100 (98-107) mmol/L Carbon Dioxide 25 (22-30) mmol/L Anion Gap 10 mmol/L BUN 18 (9-20) mg/dL Creatinine 0.73 (0.66-1.25) mg/dL Est GFR (CKD-EPI)AfAm >90 (>60 ml/min/1.73 sqM) Est GFR (CKD-EPI)NonAf >90 (>60 ml/min/1.73 sqM) Glucose 267 H (74-99) mg/dL Calcium 9.5 (8.4-10.2) mg/dL Total Bilirubin 0.6 (0.2-1.3) mg/dL AST 20 (17-59) U/L ALT 18 (4-49) U/L Alkaline Phosphatase 61 (38-126) U/L Total Protein 6.9 (6.3-8.2) g/dL Albumin 4.3 (3.5-5.0) g/dL Disposition Clinical Impression: Headache Disposition: HOME SELF-CARE Condition: Good Instructions (If sedation given, give patient instructions): Acute Headache (ED) Additional Instructions: Follow-up with your PCP and neurologist. Report back to ER with any new or worsening symptoms, including but not limited to sudden increase in pain, vomiting, vision or hearing disturbances, numbness or weakness.. Is patient prescribed a controlled substance at d/c from ED?: No Referrals: Marisol Davalos MD [Primary Care Provider] - 1-2 days Carson Galvan DO [STAFF PHYSICIAN] - 1-2 days Time of Disposition: 22:26
[2024-06-03 21:50] VITALS: TEMP 98.5
--- NOTE | 2024-06-03 21:56 | CT ---
EXAMINATION TYPE: CT brain wo con DATE OF EXAM: 06/03/2024 9:46 PM COMPARISON: MRI brain 03/18/2022, CLINICAL INDICATION: Male, 73 years old with history of Headache, headache TECHNIQUE: CT of the brain is performed utilizing 3 mm thick sections through the posterior fossa and 3 mm thick sections through the remaining calvarium. Study is performed within 24 hours of arrival to the hospital. Contrast used: mL of , (none if empty) CT DLP: 1170 mGycm, Automated exposure control for dose reduction was used. FINDINGS: A 0.7 cm ill-defined hypodensities at the anterior horn right lateral ventricle. A small petechial he morrhage cannot be excluded. This appears to be present as a cavernous angioma on the comparison MRI. No mass lesion is evident. No acute infarcts are evident. Ventricles and sulci are appropriate for the patient age. Mucosal thickening is within right maxillary sinus. Small retention cyst within the anterior medial l eft maxillary sinus. Right septal spur is noted. Mastoid air cells are clear. Main paranasal sinuses are clear. IMPRESSION: 1. No acute intracranial process. Follow up MRI can be performed as clinically indicated. 2. 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
--- NOTE | 2024-06-03 21:59 | CT ---
EXAMINATION TYPE: CT angio head DATE OF EXAM: 06/03/2024 9:46 PM COMPARISON: None. CLINICAL INDICATION: Male, 73 years old with history of headache, headache TECHNIQUE: CTA scan is performed with axial images are obtained, coronal and sagittal reformatted facundo ges are reviewed. 3-D reconstructed images are created on an independent workstation and reviewed. [facility] images are reviewed. NASCET criteria was used in interpretation of this exam? Contrast used:100 mL of Isovue 370 with IV Contrast, (none if empty) Oral contrast used: (none if empty) CT DLP: 705.6 mGycm, Automated exposure control for dose reduction was used. FINDINGS: Cervical of [place]: Vertebral basilar system appears normal. Posterior cerebral vasculature is unrema rkable. Internal carotid arteries bifurcate normally into A1 and M1 segments. A2 segments are normal. The anterior communicating artery is patent. The right posterior communicating artery is patent. The left posterior communicating artery is patent. IMPRESSION: 1. Normal [place] [facility], Workstation: [facility], 06/03/2024 9:56 PM
[2024-06-03 22:43] VITALS: BP 155/83; PULSE 60; RESP 17
== END 2024-06-03 22:43 | disposition home or self-care (01) ==
LOC: EC 19:26
DX: R51.9 Headache, unspecified (principal)
CPT/HCPCS: 36415; 80053; 85025; 85610; 85730; 70496; 70450; 99284; Q9967

== ENCOUNTER 2024-09-23 10:49 | Emergency (ER) | payer MEDICARE ==
[2024-09-23 10:53] VITALS: RESP 18; TEMP 97.8
--- NOTE | 2024-09-23 11:18 | ED ---
General Adult HPI - General Chief complaint: Chest Pain Stated complaint: rib discomfort, right sided Time Seen by Provider: 09/23/24 10:54 Source: patient, RN notes reviewed Mode of arrival: ambulatory Limitations: no limitations - History of Present Illness Initial comments: Patient is a 74-year-old male present to the emergency department with concern for right-sided chest discomfort. Onset of symptoms was over 2 days ago. Patient was working under his car. When patient pushed up he had discomfort on the right side. Discomfort has been mild yet persistent. Discomfort does increase if the patient coughs or pushes or pulls. Discomfort is never severe. No history of similar symptoms previously. No dyspnea. No nausea. No diaphoresis. No back pain. - Related Data Home Medications Medication Instructions Recorded Confirmed Enalapril [Vasotec] 15 mg PO HS 02/08/17 09/23/24 Isosorbide Mononitrate ER [Imdur] 60 mg PO DAILY 02/08/17 09/23/24 Ranolazine [Ranexa] 500 mg PO BID 04/18/19 09/23/24 Atorvastatin [Lipitor] 80 mg PO HS 01/28/20 09/23/24 Insulin Glargine,Hum.rec.anlog 50 units SQ DAILY 05/18/24 09/23/24 [Toujeo Max Solostar] Metoprolol Tartrate [Lopressor] 25 mg PO BID 05/18/24 09/23/24 Nitroglycerin Sl Tabs [Nitrostat] 0.4 mg SL Q5M PRN 05/18/24 09/23/24 Glucagon [Gvoke Pfs 1-Pack Syringe] 1 mg SQ ONCE PRN 09/23/24 09/23/24 Insulin Aspart [NovoLOG Flexpen] See Protocol SQ AC-TID 09/23/24 09/23/24 Previous Rx's Medication Instructions Recorded Clopidogrel [Plavix] 75 mg PO DAILY #90 tab 11/16/18 Allergies Allergy/AdvReac Type Severity Reaction Status Date / Time No Known Allergies Allergy Verified 09/23/24 12:31 Review of Systems ROS Statement: Those systems with pertinent positive or pertinent negative responses have been documented in the HPI. ROS Other: All systems not noted in ROS Statement are negative. Constitutional: Denies: fever Eyes: Denies: eye pain ENT: Denies: ear pain Respiratory: Denies: dyspnea Cardiovascular: Reports: as per HPI Gastrointestinal: Denies: abdominal pain Musculoskeletal: Denies: back pain Past Medical History Past Medical History: Coronary Artery Disease (CAD), Diabetes Mellitus, Hyperlipidemia, Hypertension, Musculoskeletal Disorder Additional Past Medical History / Comment(s): left shoulder fx and torn rotator cuff shoulder History of Any Multi-Drug Resistant Organisms: None Reported Past Surgical History: Coronary Bypass/CABG, Heart Catheterization, Heart Catheterization With Stent, Orthopedic Surgery Additional Past Surgical History / Comment(s): cabg x4 1999, left rotator cuff repair, 3 cardiac stents. stent cardiac May 20 Past Anesthesia/Blood Transfusion Reactions: No Reported Reaction Date of Last Stent Placement:: 03/06/17 Past Psychological History: No Psychological Hx Reported Smoking Status: Never smoker Past Alcohol Use History: Rare Past Drug Use History: None Reported - Past Family History Mother Family Medical History: Cancer Additional Family Medical History / Comment(s): skin Father Family Medical History: Coronary Artery Disease (CAD) General Exam Limitations: no limitations General appearance: alert, in no apparent distress Head exam: Present: normocephalic Eye exam: Present: normal appearance Neck exam: Present: normal inspection Respiratory exam: Present: normal lung sounds bilaterally, chest wall tenderness (Right anterior lateral lower chest, mild) Cardiovascular Exam: Present: regular rate, normal rhythm, normal heart sounds Expanded Peripheral pulses: 2+: Radial (R), Radial (L), Posterior Tibialis (R), Posterior Tibialis (L) GI/Abdominal exam: Present: soft. Absent: tenderness Extremities exam: Present: normal inspection. Absent: pedal edema, calf tenderness Back exam: Present: normal inspection. Absent: tenderness Neurological exam: Present: alert Psychiatric exam: Present: normal affect, normal mood Skin exam: Present: normal color Course Vital Signs 09/23/24 09/23/24 10:50 13:26 Temperature 97.8 F Pulse Rate 72 54 L Respiratory 18 18 Rate Blood Pressure 164/80 123/73 O2 Sat by Pulse 98 97 Oximetry EKG Findings - EKG Results: EKG: interpreted by ERMD, sinus rhythm, normal axis, normal QRS, normal ST/T Medical Decision Making - Medical Decision Making Was pt. sent in by a medical professional or institution (, PA, HAND EMBROIDERER, urgent care, hospital, or fci...) When possible be specific @ -No Did you speak to anyone other than the patient for history (EMS, parent, family, police, friend...)? What history was obtained from this source @ -No Did you review nursing and triage notes (agree or disagree)? Why? @ -I reviewed and agree with nursing and triage notes Were old charts reviewed (outside hosp., previous admission, EMS record, old EKG, old radiological studies, urgent care reports/EKG's, fci records)? Report findings @ -No old charts were reviewed Differential Diagnosis (chest pain, altered mental status, abdominal pain women, abdominal pain men, vaginal bleeding, weakness, fever, dyspnea, syncope, headache, dizziness, GI bleed, back pain, seizure, CVA, palpatations, mental health, musculoskeletal)? @ -Differential Chest Pain: Stable Angina, Unstable Angina, STEMI, NSTEMI Aortic Dissection, Pneumothorax, Musculoskeletal, Esophageal Spasm GERD, Cholecystitis, Pancreatitis, Zoster, this is not meant to be an all-inclusive list. EKG interpreted by me (3pts min.). @ -As above X-rays interpreted by me (1pt min.). @ -Chest x-ray shows hiatal hernia CT interpreted by me (1pt min.). @ -CT chest with intrathoracic stomach, otherwise no acute abnormality U/S interpreted by me (1pt. min.). @ -None done What testing was considered but not performed or refused? (CT, X-rays, U/S, labs)? Why? @ -None What meds were considered but not given or refused? Why? @ -None Did you discuss the management of the patient with other professionals (professionals i.e. , PA, HAND EMBROIDERER, lab, RT, psych nurse, child protective services social worker, substation manager, teacher, corporate officer, transplant case manager)? Give summary @ -No Was smoking cessation discussed for >3mins.? @ -No Was critical care preformed (if so, how long)? @ -No Were there social determinants of health that impacted care today? How? (Homelessness, low income, unemployed, alcoholism, drug addiction, tra nsportation, low edu. Level, literacy, decrease access to med. care, long-term, rehab)? @ -No Was there de-escalation of care discussed even if they declined (Discuss DNR or withdrawal of care, Hospice)? DNR status @ -No What co-morbidities impacted this encounter? (DM, HTN, Smoking, COPD, CAD, Cancer, CVA, ARF, Chemo, Hep., AIDS, mental health diagnosis, sleep apnea, morbid obesity)? @ -None Was patient admitted / discharged? Hospital course, mention meds given and route, prescriptions, significant lab abnormalities, going to OR and other pertinent info. @ -Patient presents with atypical right-sided chest discomfort that changes with positions and cough. Discomfort has been persistent and mild for 2 to 3 days now. Evaluation unremarkable. Patient reevaluated and resting comfortably in bed. Patient updated on results and need for follow-up Undiagnosed new problem with uncertain prognosis? @ -No Drug Therapy requiring intensive monitoring for toxicity (Heparin, Nitro, Insulin, Cardizem)? @ -No Were any procedures done? @ -No Diagnosis/symptom? @ -Rib strain Acute, or Chronic, or Acute on Chronic? @ -Acute Uncomplicated (without systemic symptoms) or Complicated (systemic symptoms)? @ -Default Side effects of treatment? @ -No Exacerbation, Progression, or Severe Exacerbation? @ -No Poses a threat to life or bodily function? How? (Chest pain, [place], [place], pneumonia, PE, COPD, DKA, ARF, appy, cholecystitis, CVA, Diverticulitis, Homicidal, Suicidal, threat to staff... and all critical care pts) @ -No - Lab Data Result diagrams: 09/23/24 11:40 09/23/24 11:40 Lab Results 09/23/24 09/23/24 09/23/24 Range/Units 11:40 11:40 11:40 WBC 6.87 (4.50-10.00) 10*3/uL RBC 4.70 (4.40-5.60) 10*6/uL Hgb 15.5 (13.0-17.0) g/dL Hct 44.2 (39.6-50.0) % MCV 94.0 (80.0-97.0) fL MCH 33.0 H (27.0-32.0) pg MCHC 35.1 (32.0-37.0) g/dL Plt Count 202 (140-440) 10*3/uL MPV 9.7 (9.5-12.2) fL Immature Gran % (Auto) 0.1 % Neutrophils % 68.4 % Lymphocytes % 21.8 % Monocytes % 7.7 % Eosinophils % 1.9 % Basophils % 0.1 % Immature Gran # 0.01 (0.00-0.04) 10*3/uL Neutrophils # 4.69 (1.80-7.70) 10*3/uL Lymphocytes # 1.50 (0.90-5.00) 10*3/uL Monocytes # 0.53 (0.20-1.00) 10*3/uL Eosinophils # 0.13 (0.04-0.35) 10*3/uL Basophils # 0.01 (0.00-0.10) 10*3/uL PT 10.8 (10.0-12.5) sec INR 1.0 (<1.2) APTT 24.1 (22.0-30.0) sec D-Dimer 0.81 H (<0.60) mg/L FEU Sodium 137 (137-145) mmol/L Potassium 4.6 (3.5-5.1) mmol/L Chloride 105 (98-107) mmol/L Carbon Dioxide 25 (22-30) mmol/L Anion Gap 7 mmol/L BUN 15 (9-20) mg/dL Creatinine 0.64 L (0.66-1.25) mg/dL Est GFR (CKD-EPI)AfAm >90 (>60 ml/min/1.73 sqM) Est GFR (CKD-EPI)NonAf >90 (>60 ml/min/1.73 sqM) Glucose 253 H (74-99) mg/dL Calcium 9.3 (8.4-10.2) mg/dL Magnesium 1.9 (1.6-2.3) mg/dL Total Bilirubin 0.8 (0.2-1.3) mg/dL AST 22 (17-59) U/L ALT 18 (4-49) U/L Alkaline Phosphatase 51 (38-126) U/L Troponin I (0.000-0.034) ng/mL Total Protein 6.5 (6.3-8.2) g/dL Albumin 3.9 (3.5-5.0) g/dL 09/23/24 Range/Units 11:40 WBC (4.50-10.00) 10*3/uL RBC (4.40-5.60) 10*6/uL Hgb (13.0-17.0) g/dL Hct (39.6-50.0) % MCV (80.0-97.0) fL MCH (27.0-32.0) pg MCHC (32.0-37.0) g/dL Plt Count (140-440) 10*3/uL MPV (9.5-12.2) fL Immature Gran % (Auto) % Neutrophils % % Lymphocytes % % Monocytes % % Eosinophils % % Basophils % % Immature Gran # (0.00-0.04) 10*3/uL Neutrophils # (1.80-7.70) 10*3/uL Lymphocytes # (0.90-5.00) 10*3/uL Monocytes # (0.20-1.00) 10*3/uL Eosinophils # (0.04-0.35) 10*3/uL Basophils # (0.00-0.10) 10*3/uL PT (10.0-12.5) sec INR (<1.2) APTT (22.0-30.0) sec D-Dimer (<0.60) mg/L FEU Sodium (137-145) mmol/L Potassium (3.5-5.1) mmol/L Chloride (98-107) mmol/L Carbon Dioxide (22-30) mmol/L Anion Gap mmol/L BUN (9-20) mg/dL Creatinine (0.66-1.25) mg/dL Est GFR (CKD-EPI)AfAm (>60 ml/min/1.73 sqM) Est GFR (CKD-EPI)NonAf (>60 ml/min/1.73 sqM) Glucose (74-99) mg/dL Calcium (8.4-10.2) mg/dL Magnesium (1.6-2.3) mg/dL Total Bilirubin (0.2-1.3) mg/dL AST (17-59) U/L ALT (4-49) U/L Alkaline Phosphatase (38-126) U/L Troponin I <0.012 (0.000-0.034) ng/mL Total Protein (6.3-8.2) g/dL Albumin (3.5-5.0) g/dL Disposition Clinical Impression: Rib sprain Disposition: HOME SELF-CARE Condition: Stable Instructions (If sedation given, give patient instructions): Rib Contusion (ED), Muscle Strain (ED) Additional Instructions: Please do follow-up with your primary care physician in the next day or 2 for recheck. Return for change or worsening symptoms, fever, difficulty breathing, or any other concerns. Is patient prescribed a controlled substance at d/c from ED?: No Referrals: Marisol Davalos MD [Primary Care Provider] - 1-2 days Time of Disposition: 14:22
[2024-09-23] MEDS: ASPIRIN 81 MG PO STA (11:42)
[2024-09-23 11:49] LABS: Basophils # (A) 0.01 10*3/uL (0.00-0.10); Basophils % (A) 0.1 %; Eosinophils # (A) 0.13 10*3/uL (0.04-0.35); Eosinophils % (A) 1.9 %; HCT 44.2 % (39.6-50.0); HGB 15.5 g/dL (13.0-17.0); Lymphocytes % (A) 21.8 %; MCHC 35.1 g/dL (32.0-37.0); Mean Platelet Volume 9.7 fL (9.5-12.2); Monocytes # (A) 0.53 10*3/uL (0.20-1.00); Monocytes % (A) 7.7 %; Neutrophils # (A) 4.69 10*3/uL (1.80-7.70); Neutrophils % (A) 68.4 %; Platelet Count 202 10*3/uL (140-440); RDW 12.8 % (11.5-14.5); WBC 6.87 10*3/uL (4.50-10.00)
[2024-09-23 11:59] LABS: ALT 18 U/L (4-49); AST 22 U/L (17-59); African American GFR (CKD) >90 (>60 ml/min/1.73 sqM); Albumin 3.9 g/dL (3.5-5.0); Alkaline Phosphatase 51 U/L (38-126); Anion Gap 7 mmol/L; Blood Urea Nitrogen 15 mg/dL (9-20); Calcium 9.3 mg/dL (8.4-10.2); Carbon Dioxide 25 mmol/L (22-30); Chloride 105 mmol/L (98-107); Glucose 253 mg/dL (74-99); Magnesium 1.9 mg/dL (1.6-2.3); Non-African American GFR(CKD) >90 (>60 ml/min/1.73 sqM); Potassium 4.6 mmol/L (3.5-5.1); Sodium 137 mmol/L (137-145); Total Bilirubin 0.8 mg/dL (0.2-1.3); Total Protein 6.5 g/dL (6.3-8.2)
--- NOTE | 2024-09-23 12:05 | XR ---
EXAMINATION TYPE: XR chest 2V DATE OF EXAM: 09/23/2024 11:55 AM COMPARISON: 05/18/2024 CLINICAL INDICATION: Male, 74 years old with history of Chest Pain, , TECHNIQUE: PA and lateral views FINDINGS: Heart margin is obscured by underlying hiatal hernia. Median sternotomy wires are post-CABG clips. Hy perinflation. Interstitial prominence is unchanged. Otherwise, no consolidation or pleural effusion. IMPRESSION: COPD, post-CABG changes, and very large hiatal hernia. Correlate for any associated symptoms. Overall appearance similar to prior. [facility], Workstation: [facility], 09/23/2024 12:03 PM
[2024-09-23 12:08] LABS: Partial Thromboplastin Time 24.1 sec (22.0-30.0); Prothrombin Time 10.8 sec (10.0-12.5)
--- NOTE | 2024-09-23 14:04 | CT ---
EXAMINATION TYPE: CT angio chest DATE OF EXAM: 09/23/2024 COMPARISON: None CLINICAL INDICATION: Male, 74 years old with history of sedrick; PHH, Elevated D-dimer. Rt sided chest di scomfort x2days. Possible strained muscle. TECHNIQUE: CTA scan of the thorax is performed with IV Contrast, patient injected with 100 ml mL of Isovue 370, pulmonary embolism protocol. MIP images are created and reviewed. CT DLP: 353.[address] CTDI: mGy Automated exposure control for dose reduction was used. FINDINGS: LUNGS: The lungs are grossly clear, there is no concerning parenchymal mass or nodule identified. T here is no pleural effusion or pneumothorax seen. The tracheobronchial tree is patent. MEDIASTINUM: There is satisfactory enhancement of the pulmonary artery and its branches, there is no CT evidence for pulmonary embolism. There are no greater than 1 cm hilar or mediastinal lymph nodes. No pericardial effusion is seen. OTHER: There is a large intrathoracic stomach. IMPRESSION: 1. NO EVIDENCE PULMONARY EMBOLUS. 2. NO ACUTE CARDIOPULMONARY DISEASE. 3 LARGE INTRATHORACIC STOMACH [facility], , 09/23/2024 2:02 PM
[2024-09-23 14:56] VITALS: BP 130/75; PULSE 52
== END 2024-09-23 14:56 | disposition home or self-care (01) ==
LOC: EC 10:49
DX: S23.41XA Sprain of ribs, initial encounter (principal); X58.XXXA Exposure to other specified factors, initial encounter
CPT/HCPCS: 36415; 93005; 85379; 80053; 83735; 84484; 85025; 85610; 85730; 71046; 71275; 99285; Q9967